=== PATIENT | female | born 1935 | race Caucasian/White ===

== ENCOUNTER 2017-06-24 11:57 | Inpatient (IN) | payer OTHER ==
[2017-06-24] MEDS ORDERED: ALBUTEROL 2.5 MG/3 ML NEB SOL ONE (12:19)
[2017-06-24] MEDS ORDERED: IPRATROPIUM BROM 0.5MG/2.5ML ONE ×2 (12:19→12:25)
[2017-06-24 12:37] LABS: Absolute Lymphocytes (CBC) 1.1 K/uL (0.7-4.9); Absolute Neutrophil 9.5 K/uL (1.8-8.0); Basophils % 0.3 % (0-1.3); Eosinophils % 0.4 % (0-4.4); Hematocrit 41.6 % (36.0-45.0); Lymphocytes % 9.2 % (15.3-44.8); MCH 31.8 pg (27.0-35.0); MCV 96.5 fL (80-100); MPV 9.8 fL (7.6-11.3); Monocytes % 8.4 % (3.3-12.3); RBC Red Blood Cell Count 4.31 M/uL (3.86-4.86)
[2017-06-24 12:46] LABS: Potassium 4.7 mEq/L (3.6-5.0)
[2017-06-24 12:51] LABS: Protime INR 1.14
[2017-06-24 12:58] LABS: Arterial Blood Carboxyhemoglob 1.3 % (0-1.5); Blood Gas Oxyhemoglobin 97.4 % (94-97); Blood O2 Saturation 99.6 % (92-98.5)
--- NOTE | 2017-06-24 13:16 | RAD REPORT ---
EXAM DESCRIPTION: RAD - Chest Single View - 06/24/2017 12:57 pm CLINICAL HISTORY: Shortness of breath, decreased O2 saturation COMPARISON: December 2015 TECHNIQUE: AP portable chest image was obtained 1233 hours . FINDINGS: Lung volumes are low. Interstitial markings are prominent, accentuated by shallow inspirat ion, body habitus and underpenetrated technique. Cardiomegaly and vascular engorgement are present al so accentuated by exam limitations. Bilateral pleural effusions are present. No pneumothorax. Sternot prasad wires are in place. Degenerative bony changes are present more prominent at the right shoulder. N o gross acute bone process seen. No acute aortic findings suspected. IMPRESSION: CHF/volume overload pattern is present accentuated by shallow inspiration and under pene trated film technique.
--- NOTE | 2017-06-24 13:27 | EKG ---
Test Date: 2017-06-24 Test Time: 12:19:42 Pharmacy Resource Tech: NAMITA MEASUREMENT RESULTS: Intervals: Rate: 132 [place]: QRSD: 78 QT: 306 QTc: 453 [place]: P: IN: QRS: 6 T: 155 INTERPRETIVE STATEMENTS: Atrial fibrillation with rapid ventricular response ST & T wave abnormality, consider lateral ischemia or digitalis effect Abnormal ECG No previous ECG available for comparison Electronically Signed On 06-24-17 13:27:05 CDT by Smith Fontanez
[2017-06-24] MEDS ORDERED: FUROSEMIDE 40 MG/4 ML VIAL ONE (13:49)
[2017-06-24] MEDS ORDERED: METOPROLOL TARTRATE 5 MG/5 ML INJ IV ONE ×2 (14:27→16:20)
--- NOTE | 2017-06-24 14:34 | ER ---
Nurse's Notes [facility] Name: Blaire Dunlap Age: 82 yrs Sex: Female : 1935 Arrival Date: 06/24/2017 Time: 12:01 Bed 8 Private MD: Diagnosis: Systolic (congestive) heart failure;Hypoxemia Presentation: 06/24 12:08 Presenting complaint: Child states: pt was due for EGD and dilation of esophagus this iw morning, was told to come to ER due to low O2 level, pt 85% on RA. Transition of care: patient was received from another setting of care (long-term care [facility]. Onset of symptoms was June 24, 2017. Initial Sepsis Screen: Does the patient meet any 2 criteria? RR > 20 per min. HR > 90 bpm. Care prior to arrival: None. 12:08 Method Of Arrival: Wheelchair iw 12:08 Acuity: BRUNA 2 iw 12:15 Initial Sepsis Screen: Does the patient have a suspected source of infection? No. hb Patient's initial sepsis screen is negative. Historical: - Allergies: 12:12 NKA; iw - Home Meds: 12:24 alendronate 70 mg Oral tab 1 tab once wkly [Active]; Aricept 23 mg oral tab once daily iw [Active]; Augmentin 500-125 mg Oral tab 1 tab every 12 hours [Active]; Breo Ellipta 100-25 mcg/dose inhalation dsdv 1 puff once daily [Active]; bumetanide 0.5 mg oral tab once daily [Active]; calcium carbonate 600 mg (1,500 mg) Oral tab daily [Active]; Vitamin D Oral 400 unit daily [Active]; citalopram 40 mg oral tab once daily [Active]; Claritin 10 mg Oral tab 1 tab once daily [Active]; dicyclomine 20 mg Oral tab 3 times per day [Active]; ferrous sulfate 325 mg (65 mg iron) Oral tab twice a day [Active]; Flonase 50 mcg/actuation Nasal spsn 2 sprays 2 times per day [Active]; hydrocodone-acetaminophen 10-325 mg Oral tab 1 tab every 6 hours [Active]; hyoscyamine sulfate 0.125 mg SL subl twice a day [Active]; ipratropium-albuterol 0.5 mg-3 mg(2.5 mg base)/3 mL Inhl nebu 3 mL 4 times per day [Active]; levothyroxine 100 mcg tab 1 tab once daily [Active]; lorazepam 0.5 mg Oral tab nightly [Active]; melatonin 3 mg Oral tab twice a day [Active]; metoprolol succinate 50 mg Oral Tb24 BID [Active]; Miralax 17 gram/dose Oral powd once daily for constipation [Active]; artificial tears(hypromellose) 0.4 % Opht drop three times a day [Active]; Neurontin 600 mg Oral tab 3 times per day [Active]; ondansetron HCl 4 mg Oral tab every 6 hours [Active]; pantoprazole 40 mg oral TbEC 1 tab once daily [Active]; potassium chloride 10 mEq Oral cpER 1 cap once daily [Active]; primidone 50 mg Oral tab twice a day [Active]; Senokot 8.6 mg Oral tab 2 tabs once daily [Active]; Simethicone Oral every 6 hours [Active]; tamsulosin 0.4 mg oral cp24 1 cap once daily [Active]; Ultram 50 mg Oral tab 1 tab every 6 hours [Active]; - PMHx: 12:12 Arthritis; Atrial Fib; CAD; C-diff; Chronic pain; Chronic Pancreatitis; Dementia; iw Diabetes; Hyperlipidemia; Hypothyroidism; 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 - Social history:: Smoking status: Patient/guardian denies using tobacco. Screenin:49 Abuse screen: Denies threats or abuse. Nutritional screening: No deficits noted. tw2 Tuberculosis screening: No symptoms or risk factors identified. Fall Risk None identified. Assessment: 12:10 General: Appears distressed, Behavior is cooperative, anxious. Pain: Complains of pain hb in chest Pain does not radiate. Pain currently is 8 out of 10 on a pain scale. Pain began suddenly. Neuro: Level of Consciousness is awake, alert, obeys commands, Oriented to person, place, time, situation. Cardiovascular: Heart tones S1 S2 present Capillary refill < 3 seconds Patient's skin is warm and dry. Respiratory: Airway is patent Trachea midline Respiratory effort is labored, Respiratory pattern is tachypnea Breath sounds with crackles bilaterally. GI: No signs and/or symptoms were reported involving the gastrointestinal system. : No signs and/or symptoms were reported regarding the genitourinary system. EENT: No signs and/or symptoms were reported regarding the EENT system. Derm: No signs and/or symptoms reported regarding the dermatologic system. Skin is pink, warm \T\ dry. Musculoskeletal: No signs and/or symptoms reported regarding the musculoskeletal system. 12:12 Reassessment: RT paged to bedside to set up BiPAP. iw 12:49 Reassessment: Patient appears in no apparent distress at this time. Patient and/or tw2 family updated on plan of care and expected duration. Pain level reassessed. Patient is alert, oriented x 3, equal unlabored respirations, skin warm/dry/pink. 13:46 Reassessment: HR 125-150, irregular. Dr. Zambrano notified, repeat EKG ordered. clinical dietetic technician paged. 14:45 Reassessment: Patient appears in no apparent distress at this time. No changes from hb previously documented assessment. Patient and/or family updated on plan of care and expected duration. Pain level reassessed. Patient is alert, oriented x 3, equal unlabored respirations, skin warm/dry/pink. HR 120-140. Dr. Zambrano aware. 15:42 Reassessment: Patient appears in no apparent distress at this time. No changes from hb previously documented assessment. Patient and/or family updated on plan of care and expected duration. Pain level reassessed. Patient is alert, oriented x 3, equal unlabored respirations, skin warm/dry/pink. Admission ordered, awaiting room assignment at this time. HR 120-140, Dr. Zambrano and Dr. Toscano aware. 16:45 Reassessment: Patient appears in no apparent distress at this time. No changes from hb previously documented assessment. Patient and/or family updated on plan of care and expected duration. Pain level reassessed. Patient is alert, oriented x 3, equal unlabored respirations, skin warm/dry/pink. Vital Signs: 12:12 BP 138 / 94; Pulse 121; Resp 26 S; Pulse Ox 85% on R/A; iw 12:49 BP 140 / 93; Pulse 146; Resp 28; Pulse Ox 99% on Nebulizer Mask; tw2 13:11 BP 134 / 92; Pulse 140; Resp 28; Pulse Ox 96% on 30% BiPAP; Pain 0/10; tw2 14:26 BP 133 / 82; Pulse 127; Resp 24; Pulse Ox 96% on 30% BiPAP; hb 15:43 BP 138 / 95; Pulse 131; Resp 22; Pulse Ox 100% on 30% BiPAP; hb 16:45 BP 134 / 99; Pulse 116; Resp 24; Pulse Ox 97% on 30% BiPAP; hb 13:11 BIPBP 12/6, R12, 30% FiO2 tw2 ED Course: 12:01 Patient arrived in ED. rg4 12:02 Placed in gown. bellstaff on. Pulse ox on. NIBP on. tw2 12:03 John Zambrano MD is Attending Physician. gs 12:10 Triage completed. iw 12:12 Arm band placed on. iw 12:26 Charley Oliver, RN is Primary Nurse. hb 12:32 EKG done, by clinical dietetic technician. reviewed by John Zambrano MD. tc 12:57 XRAY Chest (1 view) In Process Unspecified. EDMS 13:45 BIPAP Sent. hb 14:33 Annabel Toscano MD is Hospitalizing Provider. gs 17:20 No provider procedures requiring assistance completed. Patient admitted, IV remains in hb place. Oxygen administration via nasal cannula. Administered Medications: 12:26 Drug: Albuterol - atroVENT (3:1) (2.5 mg - 0.5 mg) 3 ml Route: Nebulizer; hb 14:19 Follow up: Response: No adverse reaction tw2 12:27 Drug: AtroVENT Aerosol 0.5 mg Route: Inhalation; hb 13:50 Drug: Lasix 40 mg Route: IVP; Site: right antecubital; tw2 15:47 Follow up: Response: No adverse reaction tw2 14:27 Drug: Lopressor 5 mg Route: IVP; Site: right antecubital; tw2 15:47 Follow up: Response: No adverse reaction tw2 Outcome: 14:34 Decision to Hospitalize by Provider. gs 17:20 Admitted to Tele accompanied by tech, via stretcher, with oxygen, with chart. hb 17:20 Condition: stable 17:20 Instructed on the need for admit, Demonstrated understanding of instructions. 17:21 Patient left the ED. tw2 Signatures: Dispatcher [employer] EDNetta Garcia, RN RN iw Rafael, Sailaja, division merchandise manager EKG Ttc Charley Oliver RN RN Candace Sultana RN RN [facility] Itzel Denson [facility] John Zambrano MD MD
--- NOTE | 2017-06-24 14:35 | EDPHYS ---
Physician Documentation [facility] Name: Blaire Dunlap Age: 82 yrs Sex: Female : 1935 Arrival Date: 06/24/2017 Time: 12:01 Bed 8 Private MD: ED Physician John Zambrano HPI: 06/24 15:33 This 82 yrs old Female presents to ER via Wheelchair with complaints of Chest gs Pain, LOW O2. 15:33 The patient has shortness of breath at rest. Onset: The symptoms/episode began/occurred gs today. Duration: The symptoms are continuous. The patient's shortness of breath has no apparent modifying factors. Associated signs and symptoms: Pertinent positives: dizziness, palpitations. Severity of symptoms: At their worst the symptoms were moderate in the emergency department the symptoms are unchanged. The patient has experienced similar episodes in the past, a few times. Historical: - Allergies: 12:12 NKA; iw - Home Meds: 12:24 alendronate 70 mg Oral tab 1 tab once wkly [Active]; Aricept 23 mg oral tab once daily iw [Active]; Augmentin 500-125 mg Oral tab 1 tab every 12 hours [Active]; Breo Ellipta 100-25 mcg/dose inhalation dsdv 1 puff once daily [Active]; bumetanide 0.5 mg oral tab once daily [Active]; calcium carbonate 600 mg (1,500 mg) Oral tab daily [Active]; Vitamin D Oral 400 unit daily [Active]; citalopram 40 mg oral tab once daily [Active]; Claritin 10 mg Oral tab 1 tab once daily [Active]; dicyclomine 20 mg Oral tab 3 times per day [Active]; ferrous sulfate 325 mg (65 mg iron) Oral tab twice a day [Active]; Flonase 50 mcg/actuation Nasal spsn 2 sprays 2 times per day [Active]; hydrocodone-acetaminophen 10-325 mg Oral tab 1 tab every 6 hours [Active]; hyoscyamine sulfate 0.125 mg SL subl twice a day [Active]; ipratropium-albuterol 0.5 mg-3 mg(2.5 mg base)/3 mL Inhl nebu 3 mL 4 times per day [Active]; levothyroxine 100 mcg tab 1 tab once daily [Active]; lorazepam 0.5 mg Oral tab nightly [Active]; melatonin 3 mg Oral tab twice a day [Active]; metoprolol succinate 50 mg Oral Tb24 BID [Active]; Miralax 17 gram/dose Oral powd once daily for constipation [Active]; artificial tears(hypromellose) 0.4 % Opht drop three times a day [Active]; Neurontin 600 mg Oral tab 3 times per day [Active]; ondansetron HCl 4 mg Oral tab every 6 hours [Active]; pantoprazole 40 mg oral TbEC 1 tab once daily [Active]; potassium chloride 10 mEq Oral cpER 1 cap once daily [Active]; primidone 50 mg Oral tab twice a day [Active]; Senokot 8.6 mg Oral tab 2 tabs once daily [Active]; Simethicone Oral every 6 hours [Active]; tamsulosin 0.4 mg oral cp24 1 cap once daily [Active]; Ultram 50 mg Oral tab 1 tab every 6 hours [Active]; - PMHx: 12:12 Arthritis; Atrial Fib; CAD; C-diff; Chronic pain; Chronic Pancreatitis; Dementia; iw Diabetes; Hyperlipidemia; Hypothyroidism; 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 - Social history:: Smoking status: Patient/guardian denies using tobacco. ROS: 15:33 All other systems are negative. gs Exam: 15:33 Head/Face: Normocephalic, atraumatic. Eyes: Pupils equal round and reactive to light, gs extra-ocular motions intact. Lids and lashes normal. Conjunctiva and sclera are non-icteric and not injected. Cornea within normal limits. Periorbital areas with no swelling, redness, or edema. ENT: Nares patent. No nasal discharge, no septal abnormalities noted. Tympanic membranes are normal and external auditory canals are clear. Oropharynx with no redness, swelling, or masses, exudates, or evidence of obstruction, uvula midline. Mucous membranes moist. Neck: Trachea midline, no thyromegaly or masses palpated, and no cervical lymphadenopathy. Supple, full range of motion without nuchal rigidity, or vertebral point tenderness. No Meningismus. Chest/axilla: Normal chest wall appearance and motion. Nontender with no deformity. No lesions are appreciated. 15:33 Abdomen/GI: Soft, non-tender, with normal bowel sounds. No distension or tympany. No guarding or rebound. No evidence of tenderness throughout. Back: No spinal tenderness. No costovertebral tenderness. Full range of motion. Skin: Warm, dry with normal turgor. Normal color with no rashes, no lesions, and no evidence of cellulitis. MS/ Extremity: Pulses equal, no cyanosis. Neurovascular intact. Full, normal range of motion. Neuro: Awake and alert, GCS 15, oriented to person, place, time, and situation. Cranial nerves II-XII grossly intact. Motor strength 5/5 in all extremities. Sensory grossly intact. Cerebellar exam normal. Normal gait. 15:33 Constitutional: The patient appears alert, awake, in obvious distress, severely distressed. 15:33 Cardiovascular: Rate: tachycardic, Rhythm: irregularly irregular, Pulses: no pulse deficits are appreciated. 15:33 ECG was reviewed by the Attending Physician. 15:33 Respiratory: severe repiratory distress is noted, Respirations: labored breathing, tachypnea, Breath sounds: decreased breath sounds, that are severe, are heard in the left upper lobe and left lower lobe. Vital Signs: 12:12 BP 138 / 94; Pulse 121; Resp 26 S; Pulse Ox 85% on R/A; iw 12:49 BP 140 / 93; Pulse 146; Resp 28; Pulse Ox 99% on Nebulizer Mask; tw2 13:11 BP 134 / 92; Pulse 140; Resp 28; Pulse Ox 96% on 30% BiPAP; Pain 0/10; tw2 14:26 BP 133 / 82; Pulse 127; Resp 24; Pulse Ox 96% on 30% BiPAP; hb 15:43 BP 138 / 95; Pulse 131; Resp 22; Pulse Ox 100% on 30% BiPAP; hb 16:45 BP 134 / 99; Pulse 116; Resp 24; Pulse Ox 97% on 30% BiPAP; hb 13:11 BIPBP 12/6, R12, 30% FiO2 tw2 MDM: 12:09 Patient medically screened. 15:33 Differential diagnosis: CHF exacerbation, Chronic Obstructive Pulmonary Disease gs Myocardial Infarction pneumonia. Data reviewed: vital signs, nurses notes, old medical records, and as a result, I will admit patient. 06/24 12:12 Order name: BNP; Complete Time: 13:45 gs 06/24 12:12 Order name: Basic Metabolic Panel; Complete Time: 13:45 gs 06/24 12:12 Order name: CBC with Diff; Complete Time: 13:45 gs 06/24 12:12 Order name: Magnesium; Complete Time: 13:45 gs 06/24 12:12 Order name: PT-INR; Complete Time: 13:45 gs 06/24 12:12 Order name: Troponin (emerg Dept Use Only); Complete Time: 13:45 gs 06/24 12:12 Order name: XRAY Chest (1 view); Complete Time: 13:45 gs 06/24 12:12 Order name: EKG; Complete Time: 12:13 gs 06/24 12:12 Order name: BIPAP 06/24 12:17 Order name: ABG; Complete Time: 14:00 06/24 12:12 Order name: Cardiac monitoring; Complete Time: 12:27 06/24 12:12 Order name: EKG - Nurse/Tech; Complete Time: 12:27 06/24 12:12 Order name: IV Saline Lock; Complete Time: 12:27 gs 06/24 12:12 Order name: Labs collected and sent; Complete Time: 12:27 06/24 12:12 Order name: O2 Per Protocol; Complete Time: 12:27 06/24 12:12 Order name: O2 Sat Monitoring; Complete Time: 12:27 06/24 13:45 Order name: EKG; Complete Time: 13:45 06/24 13:45 Order name: EKG - Nurse/Tech; Complete Time: 14:19 gs EC:33 Rate is 135 beats/min. Rhythm is irregularly irregular. QRS interval is normal. QT gs interval is normal. Clinical impression: Abnormal EKG without significant change and Atrial Fibrillation. Interpreted by me. Administered Medications: 12:26 Drug: Albuterol - atroVENT (3:1) (2.5 mg - 0.5 mg) 3 ml Route: Nebulizer; hb 14:19 Follow up: Response: No adverse reaction tw2 12:27 Drug: AtroVENT Aerosol 0.5 mg Route: Inhalation; hb 13:50 Drug: Lasix 40 mg Route: IVP; Site: right antecubital; tw2 15:47 Follow up: Response: No adverse reaction tw2 14:27 Drug: Lopressor 5 mg Route: IVP; Site: right antecubital; tw2 15:47 Follow up: Response: No adverse reaction tw2 Disposition: 15:33 Critical Care:. gs Disposition: 06/24/17 14:34 Hospitalization ordered by Annabel Toscano for Inpatient Admission. Preliminary diagnosis are Systolic (congestive) heart failure, Hypoxemia. - Bed requested for Intensive Care Unit. - Status is Inpatient Admission. tw2 - Condition is Stable. - Problem is an acute exacerbation. - Symptoms have improved. UTI on Admission? No Critical care time excluding procedures: 15:33 Critical care time: Bedside Care: 10 minutes, Consultation: 10 minutes, Family gs Intervention: 10 minutes. Total time: 30 minutes Signatures: Dispatcher [employer] EDMS Batsheva Milner Irene, RN RN Charley Oliver RN RN Candace Sultana RN RN 2 ZambranoJohn sullivan MD MD Corrections: (The following items were deleted from the chart) 16:44 14:34 Hospitalization Ordered by Annabel Toscano MD for Inpatient Admission. Preliminary bd diagnosis is Systolic (congestive) heart failure; Hypoxemia. Bed requested for Intensive Care Unit. Status is Inpatient Admission. Condition is Stable. Problem is an acute exacerbation. Symptoms have improved. UTI on Admission? No. gs 17:21 16:44 06/24/2017 14:34 Hospitalization Ordered by Annabel Toscano MD for Inpatient tw2 Admission. Preliminary diagnosis is Systolic (congestive) heart failure; Hypoxemia. Bed requested for Intensive Care Unit. Status is Inpatient Admission. Condition is Stable. Problem is an acute exacerbation. Symptoms have improved. UTI on Admission? No. bd
[2017-06-24] MEDS ORDERED: ONDANSETRON 4 MG/2 ML VIAL IV PRN (15:17)
[2017-06-24] MEDS ORDERED: ACETAMINOPHEN 500 MG TAB PO PRN (15:17)
[2017-06-24] MEDS ORDERED: SODIUM CHLORIDE 0.9% 10ML INJ IV PRN (15:21)
[2017-06-24 17:25] VITALS: BMI 26.5
--- NOTE | 2017-06-24 17:57 | EKG ---
Test Date: 2017-06-24 Test Time: 13:53:21 Analysis Internship: MEGHNA MEASUREMENT RESULTS: Intervals: Rate: 135 [place]: QRSD: 76 QT: 320 QTc: 480 [place]: P: [place]: QRS: 1 T: 181 INTERPRETIVE STATEMENTS: Atrial fibrillation with rapid ventricular response ST & T wave abnormality, consider lateral ischemia or digitalis effect Abnormal ECG Compared to ECG 06/24/2017 12:19:42 No significant changes Electronically Signed On 06-24-17 17:57:00 CDT by Smith Fontanez
--- NOTE | 2017-06-24 18:31 | P.HP ---
Certification for Inpatient Patient admitted to: Inpatient With expected LOS: >2 Midnights Patient will require the following post-hospital care: None Practitioner: I am a practitioner with admitting privileges, knowledge of patient current condition, hospital course, and medical plan of care. Services: Services provided to patient in accordance with Admission requirements found in Title 42 Section 412.3 of the Code of Federal Regulations Patient History Date of Service: 06/24/17 Primary Care Provider: None Reason for admission: respiratory Failure History of Present Illness: This is a 82-year-old female with significant past medical history of COPD, CHF , atrial fibrillation, dementia, hypertension, hyperlipidemia, diabetes, CAD, who presented to the ED complaining of respiratory distress for about 2-3 days from the long-term. Patient was at the EGD today to get her esophageal dilation done for herself stricture however patient was having some respiratory distress and thus was sent to the ER for further care. Patient's family at bedside states that patient has been having some epigastric pain which was most likely secondary to her esophageal stricture and thus she was scheduled for dilation today however for past 2-3 days patient has not been able to eat or drink anything and has been more somnolent and lethargic at the long-term. In the ER patient was found to have elevated CO2 on ABGs along with hyponatremia and respiratory distress was started on BiPAP and was referred over for admission for further care. Allergies No Known Allergies Allergy (Unverified 12/12/11 13:27) - Past Medical/Surgical History Diabetic: No -: Atrial Fibrillation -: CAD -: Anuerysm Repair - Family History Dad Notes: no significant hx as claimed Mom Notes: no significant hx as claimed - Social History Smoking Status: Former smoker Alcohol use: No CD- Drugs: No Caffeine use: No Place of Residence: Detention Review of Systems General: As per HPI Physical Examination - Vital Signs Blood Pressure: 126/74 Pulse: 134 Respirations: 23 Pulse Ox (%): 96 - Physical Exam General: Alert, Oriented x3, Moderate distress HEENT: Atraumatic Neck: Supple Respiratory: Normal air movement, Crackles/rales, Rhonchi/gurgles Cardiovascular: Normal S1 S2, Abnormal pulses, Irregular heart rate/rhythm Gastrointestinal: Normal bowel sounds, Soft and benign, Non-distended, No tenderness Musculoskeletal: No tenderness Integumentary: No rashes Neurological: Normal speech, Normal strength at 5/5 x4 extr, Normal tone, Sensation intact Lymphatics: No axilla or inguinal lymphadenopathy - Studies Laboratory Data (last 24 hrs) 06/24/17 12:20: PT 13.5 H, INR 1.14 06/24/17 12:20: WBC 11.6 H D, Hgb 13.7, Hct 41.6, Plt Count 244 D 06/24/17 12:20: Sodium 128 L, Potassium 4.7, BUN 26 H, Creatinine 1.14 H, Glucose 109, Magnesium 2.0 06/24/17 12:20: B-Natriuretic Peptide 701 H Assessment and Plan - Problems (Diagnosis) (1) Respiratory failure Current Visit: Yes Status: Acute Plan: Acute Hypercapnic Respiratory Failure. Most Likely 2/2 to COPD vs CHF exacerbation -BIPAP for now, Duonebs and Steroids -Pulmonology consulted. -Procal pending. If elevated will start antibiotics -ABG in AM And xray in the AM as well -Wean of BIPAP as tolerated. Qualifiers: Chronicity: acute on chronic Respiratory failure complication: hypercapnia Qualified Code(s): J96.22 - Acute and chronic respiratory failure with hypercapnia (2) CHF (congestive heart failure) Current Visit: Yes Status: Acute Plan: H/o CHF. Unknow ECHO -Will get ECHO at this time -BNP >700 -Lasix BID for now Qualifiers: Heart failure type: unspecified Heart failure chronicity: acute on chronic Qualified Code(s): I50.9 - Heart failure, unspecified (3) COPD (chronic obstructive pulmonary disease) Current Visit: Yes Status: Acute Plan: COPD exacerbation. -BIPAP, Steroids and Duonebs Qualifiers: COPD type: COPD with acute exacerbation Qualified Code(s): J44.1 - Chronic obstructive pulmonary disease with (acute) exacerbation (4) Atrial fibrillation with RVR Current Visit: Yes Status: Acute Plan: Most likely 2.2 to Albuterol treatment and pt did not get her medication this AM -Will Restart BB -Echo pending -Anticoagulation with Eliquis (5) Dementia Current Visit: Yes Status: Chronic Qualifiers: Dementia type: Alzheimer's disease Alzheimer's disease onset: late-onset Dementia behavioral disturbance: without behavioral disturbance Qualified Code (s): G30.1 - Alzheimer's disease with late onset; F02.80 - Dementia in other diseases classified elsewhere without behavioral disturbance (6) GERD (gastroesophageal reflux disease) Current Visit: Yes Status: Chronic Qualifiers: Esophagitis presence: without esophagitis Qualified Code(s): K21.9 - Gastro -esophageal reflux disease without esophagitis (7) Hyperlipidemia Current Visit: Yes Status: Chronic Qualifiers: Hyperlipidemia type: mixed hyperlipidemia Qualified Code(s): E78.2 - Mixed hyperlipidemia (8) Diabetes Current Visit: Yes Status: Chronic Qualifiers: Diabetes mellitus type: type 2 Diabetes mellitus residential insulin use: with residential use Diabetes mellitus complication status: without complication Qualified Code(s): E11.9 - Type 2 diabetes mellitus without complications; Z79.4 - shelter (current) use of insulin (9) Hypothyroidism Current Visit: Yes Status: Chronic Qualifiers: Hypothyroidism type: acquired Qualified Code(s): E03.9 - Hypothyroidism, unspecified (10) Hyponatremia Current Visit: Yes Status: Acute Plan: Will replace. Most likely 2.2 to Poor PO intake (11) Esophageal stricture Current Visit: Yes Status: Acute Plan: GI consulted for dilation here in the hospital. Discharge Plan: Detention Plan to discharge in: 72 Hours - Advance Directives Does patient have a Living Will: No Does patient have a Durable POA for Healthcare: No - Code Status/Comfort Care Code Status Assessed: Yes Code Status: Full Code Critical Care: No
[2017-06-24] MEDS: IPRATROPIUM BROM 0.5MG/2.5ML NEB SCH (19:21)
[2017-06-24] MEDS: LEVALBUTEROL 0.63 MG/3 ML NEB NEB SCH (19:21)
[2017-06-24] MEDS ORDERED: SIMETHICONE 80 MG TAB PO PRN (19:23)
[2017-06-24] MEDS ORDERED: POLYETHYL GLY 3350 17 GM/DOSE PO PRN (19:23)
[2017-06-24] MEDS ORDERED: HOME MED 1 EA UNK (Ipratropium/Albuterol Sulfate [Iprat-Albut 0.5-3(2.5) Mg/3 Ml] 3 ML) IH PRN (19:23)
[2017-06-24] MEDS ORDERED: MELATONIN PO SCH (21:00)
[2017-06-24] MEDS ORDERED: GABAPENTIN 400 MG CAP PO SCH (21:00)
[2017-06-24] MEDS ORDERED: PYRIDOXINE HCL PO SCH (21:00)
[2017-06-24] MEDS: METOPROLOL XL 50 MG TAB PO SCH (22:00)
[2017-06-24] MEDS: TAMSULOSIN 0.4 MG SR CAP PO SCH (23:22)
[2017-06-24] MEDS: PRIMIDONE 50 MG TAB PO SCH (23:23)
[2017-06-24] MEDS ORDERED: GABAPENTIN 300 MG CAP ONE (23:47)
[2017-06-24] MEDS: GABAPENTIN 300 MG CAP PO SCH (23:59)
[2017-06-25] MEDS: IPRATROPIUM BROM 0.5MG/2.5ML NEB SCH ×4 (01:43→20:14)
[2017-06-25] MEDS: LEVALBUTEROL 0.63 MG/3 ML NEB NEB SCH ×4 (01:44→20:14)
[2017-06-25 05:09] LABS: Blood O2 Saturation 93.4 % (92-98.5)
[2017-06-25 05:10] LABS: Arterial Blood Carboxyhemoglob 2.2 % (0-1.5); Blood Gas Oxyhemoglobin 90.8 % (94-97)
[2017-06-25 05:13] LABS: Absolute Lymphocytes (CBC) 0.9 K/uL (0.7-4.9); Absolute Monocytes 0.8 K/uL (0.1-1.3); Absolute Neutrophil 5.9 K/uL (1.8-8.0); Basophils % 0.7 % (0-1.3); Eosinophils % 1.4 % (0-4.4); Hematocrit 35.9 % (36.0-45.0); Lymphocytes % 11.6 % (15.3-44.8); MCH 32.7 pg (27.0-35.0); MCV 95.1 fL (80-100); MPV 8.8 fL (7.6-11.3); Monocytes % 9.9 % (3.3-12.3); RBC Red Blood Cell Count 3.78 M/uL (3.86-4.86)
[2017-06-25 05:27] LABS: Albumin 3.4 g/dL (3.2-5.5); Bilirubin Total 1.3 mg/dL (0.3-1.2); Potassium 4.1 mEq/L (3.6-5.0); Protein, Total 6.5 g/dL (6.0-8.3)
[2017-06-25] MEDS ORDERED: AMIODARONE HCL 450 MG in D5W 241 ML IV SCH ×2 (07:00→22:00)
[2017-06-25] MEDS ORDERED: ALBUTEROL 2.5 MG/3 ML NEB SOL IH PRN (07:50)
[2017-06-25] MEDS: ARFORMOTEROL TARTRATE 15 MCG/2 ML VIAL.NEB NEB SCH ×2 (08:16→20:14)
--- NOTE | 2017-06-25 08:16 | P.CNS ---
Date of Consult: 06/25/17 Primary Care Provider: None Chief Complaint: respiratory Failure History of Present Illness: Patient is 82 years of age was scheduled for EGD with dilatation of urged was found to be hypoxic was admitted here from the emergency room was placed on BiPAP currently she is doing well back to her baseline the former smoker quit a year ago lives in [facility] [place] [facility] back to her baseline denies any cough congestion fever or chills he also has AFib patient is not on any long-acting bronchodilator at home takes nebulizers 4 times a day Allergies No Known Allergies Allergy (Unverified 12/12/11 13:27) Home Medications: Acetaminophen [Tylenol] 322 tab PO DAILY PRN 06/24/17 Alendronate Sodium 70 mg PO SEECOM 06/24/17 Dextran 70/Hypromellose [Natural Balance Tears Eye Drop] 15 ml OP Q8H PRN Donepezil HCl [Aricept] 23 mg PO DAILY 06/24/17 Gabapentin [Neurontin] 600 mg PO TID 06/24/17 Hydrocodone Bit/Acetaminophen [Hydrocodon-Acetaminophn 10-325] 1 each PO Q6H PRN 06/24/17 Hyoscyamine Sulfate [Levsin] 0.125 mg PO Q6HP PRN 06/24/17 Ipratropium/Albuterol Sulfate [Iprat-Albut 0.5-3(2.5) mg/3 ml] 3 ml IH Q6HP PRN 06/24/17 Levothyroxine Sodium [Unithroid] 100 mcg PO DAILY 06/24/17 Lorazepam [Ativan] 0.5 mg PO BEDTIME PRN 06/24/17 Melatonin/Pyridoxine HCl (B6) [Melatonin 3 mg Tablet] 2 each PO BEDTIME Menthol [Biofreeze] 118 ml TP Q12H PRN 06/24/17 Metoprolol Succinate 50 mg PO BID 06/24/17 Ondansetron [Zofran] 4 mg PO Q6H PRN 06/24/17 Pantoprazole Sodium [Protonix] 40 mg PO DAILY 06/24/17 Polyethylene Glycol 3350 [Miralax] 17 gm PO DAILY PRN 06/24/17 Potassium Chloride [Klor-Con 10] 10 meq PO DAILY 06/24/17 Primidone [Mysoline] 50 mg PO BID 06/24/17 Sennosides [Natural Vegetable Laxative] 8.6 mg PO DAILY PRN 06/24/17 Simethicone [Mylicon Tab] 2 tab PO Q6HP PRN 06/24/17 Tamsulosin [Flomax] 0.4 mg PO BEDTIME 06/24/17 Tramadol HCl [Ultram] 50 mg PO Q6HP PRN 06/24/17 Tramadol HCl [Ultram] 100 mg PO Q6HP PRN 06/24/17 Vitamin B Complex 100 No.2 [B-100 Complex] 1 tab PO DAILY 06/24/17 - Past Medical/Surgical History Diabetic: No -: Atrial Fibrillation -: CAD -: Anuerysm Repair - Family History Dad Notes: no significant hx as claimed Mom Notes: no significant hx as claimed - Social History Smoking Status: Never smoker Alcohol use: No CD- Drugs: No Caffeine use: No Place of Residence: [facility] Review of Systems 10-point ROS is otherwise unremarkable General: Weakness Respiratory: Shortness of Breath Physical Examination Temp Pulse Resp BP Pulse Ox 98.2 F 138 H 30 H 113/81 95 06/25/17 04:00 06/25/17 07:00 06/25/17 07:00 06/25/17 07:00 06/25/17 07:00 General: Alert, Oriented x3 Neck: Supple Respiratory: Expiratory wheezes Cardiovascular: No edema, Irregular heart rate/rhythm Gastrointestinal: Normal bowel sounds, Soft and benign Laboratory Data (last 24 hrs) 06/24/17 12:20: PT 13.5 H, INR 1.14 06/24/17 12:20: WBC 11.6 H D, Hgb 13.7, Hct 41.6, Plt Count 244 D 06/24/17 12:20: Sodium 128 L, Potassium 4.7, BUN 26 H, Creatinine 1.14 H, Glucose 109, Magnesium 2.0 06/24/17 12:20: B-Natriuretic Peptide 701 H - Problems (1) Respiratory failure Current Visit: Yes Status: Acute Plan: Patient is 82 years of age with a history of COPD quit smoking a year ago admitted with hypoxemia she has hypoxic hypercapnic respiratory failure plan to titrate sat to 90% she will benefit from long-acting bronchodilators either above on our upper for missed increase prednisone to 20 mg twice a day chemistries all reviewed chest x-ray some haziness in the lower zones doubt infection ovoid diuretics Qualifiers: Chronicity: acute on chronic Respiratory failure complication: hypercapnia Qualified Code(s): J96.22 - Acute and chronic respiratory failure with hypercapnia
[2017-06-25] MEDS ORDERED: PANTOPRAZOLE 40 MG INJ IVP SCH (09:00)
[2017-06-25] MEDS ORDERED: FUROSEMIDE 40 MG/4 ML VIAL IV SCH (09:00)
[2017-06-25] MEDS ORDERED: predniSONE 10 MG TAB PO SCH (09:00)
[2017-06-25] MEDS: PRIMIDONE 50 MG TAB PO SCH ×2 (09:04→20:07)
[2017-06-25] MEDS: METOPROLOL XL 50 MG TAB PO SCH ×2 (09:05→20:01)
[2017-06-25] MEDS: PANTOPRAZOLE 40MG TABLET PO SCH (09:05)
[2017-06-25] MEDS: GABAPENTIN 300 MG CAP PO SCH ×3 (09:05→20:03)
[2017-06-25] MEDS: LEVOTHYROXINE SOD 0.1 MG TAB PO SCH (09:05)
[2017-06-25] MEDS: predniSONE 20 MG TAB PO SCH ×2 (09:06→20:03)
--- NOTE | 2017-06-25 09:09 | RAD REPORT ---
EXAM DESCRIPTION: RAD - Chest Single View - 06/25/2017 6:19 am CLINICAL HISTORY: Shortness of breath COMPARISON: 06/24/2017 FINDINGS: Portable technique limits examination quality. Bilateral pulmonary opacities are present, mildly worsened since comparative study, compatible worsen ing pulmonary edema in or volume overload. The heart is moderately enlarged in size. No displaced fra ctures.Sternotomy wires as present. IMPRESSION: Mild worsening in CHF/ volume overload pattern since comparative study.
[2017-06-25] MEDS ORDERED: METOPROLOL XL 50 MG TAB PO ONE (11:49)
[2017-06-25] MEDS ORDERED: AMIODARONE HCL 150 MG in D5W 100 ML IV STA (12:25)
[2017-06-25] MEDS ORDERED: AMIODARONE HCL 450 MG in D5W 241 ML IV ONE ×2 (12:45→21:00)
[2017-06-25] MEDS ORDERED: AMIODARONE HCL 900 MG in Dextrose 5%-Water 482 ML IV SCH (13:00)
--- NOTE | 2017-06-25 13:24 | ECHO ---
HEIGHT: 5 ft 3 in WEIGHT: 150 lb 0 oz DATE OF STUDY: 06/25/[address]: Annabel Toscano MD 2-DIMENSIONAL: YES M.MODE: YES DOPPLER: YES COLOR FLOW: YES TDS: NO PORTABLE: NO DEFINITY: NO BUBBLE STUDY: NO DIAGNOSIS: CONGESTIVE HEART FAILURE CARDIAC HISTORY: CATHERIZATION: YES SURGERY: YES PROSTHETIC VALVE: NO PACEMAKER: NO MEASUREMENTS (cm) DIASTOLIC (NORMALS) SYSTOLIC (NORMALS) IVSd 1.1 (0.6-1.2) LA Diam (1.9-4.0) LVEF 35% LVIDd 3.4 (3.5-5.7) LVIDs 2.9 (2.0-3.5) %FS 16% LVPWd 0.8 (0.6-1.2) Ao Diam 3.1 (2.0-3.7) 2 DIMENSIONAL ASSESSMENT: RIGHT ATRIUM: NORMAL LEFT ATRIUM: NORMAL RIGHT VENTRICLE: NORMAL LEFT VENTRICLE: NORMAL SIZE TRICUSPID VALVE: NORMAL MITRAL VALVE: MITRAL ANNULAR CALCIFICATION PULMONIC VALVE: NORMAL AORTIC VALVE: SCLEROSIS PERICARDIAL EFFUSION: NONE AORTIC ROOT: NORMAL LEFT VENTRICULAR WALL MOTION: MODERATE GLOBAL HYPOKINESIS. DOPPLER/COLOR FLOW: MILD TRICUPSID, AORTIC AND MITRAL REGURGITATION. COMMENTS: MILD TRICUPSID, AORTIC AND MITRAL REGURGITATION. LEFT VENTRICULAR EJECTION FRACTION 35%. MODERATE GLOBAL HYPOKINESIS. NORMAL RIGHT VENTRICULAR SYSTOLIC PRESSURE. ATRIAL FIBRILLATION. TECHNOLOGIST: Tracy VELEZ
--- NOTE | 2017-06-25 14:14 | P.PN ---
Subjective Date of Service: 06/25/17 Primary Care Provider: None Chief Complaint: respiratory Failure Patient seen and examined at bedside. Discussed with cardiology. Currently patient is still in atrial fibrillation with RVR. Heart rate between 120-136. Patient denies having any chest pain nausea vomiting or any other symptoms at this time. Review of Systems General: As per HPI Physical Examination - Vital Signs Temperature: 98.2 F Blood Pressure: 132/94 Pulse: 133 Respirations: 30 Pulse Ox (%): 95 - Physical Exam General: Alert, In no apparent distress, Oriented x3 HEENT: Atraumatic Neck: Supple, JVD distended Respiratory: Normal air movement, Crackles/rales Cardiovascular: Normal S1 S2, Irregular heart rate/rhythm Gastrointestinal: Normal bowel sounds, No tenderness Musculoskeletal: No tenderness Integumentary: No rashes Neurological: Normal speech, Normal tone, Normal affect Lymphatics: No axilla or inguinal lymphadenopathy - Studies Medications List Reviewed: Yes Assessment & Plan - Problems (Diagnosis) (1) Respiratory failure Onset Date: 06/25/17 Current Visit: Yes Status: Resolved Plan: Acute hyoxic Hypercapnic Respiratory Failure. Most Likely 2/2 to COPD vs CHF exacerbation -Weaned to NC now, Duonebs and Steroids -Pulmonology consulted. Reccs Appreciated -Procal negative. No need for antibiotics Qualifiers: Chronicity: acute on chronic Respiratory failure complication: hypoxia and hypercapnia Qualified Code(s): J96.21 - Acute and chronic respiratory failure with hypoxia; J96.22 - Acute and chronic respiratory failure with hypercapnia (2) CHF (congestive heart failure) Onset Date: 06/25/17 Current Visit: Yes Status: Acute Plan: H/o CHF with acute worsening. -ECHO pending at this time -BNP >700 -Lasix BID for now Qualifiers: Heart failure type: unspecified Heart failure chronicity: acute on chronic Qualified Code(s): I50.9 - Heart failure, unspecified (3) COPD (chronic obstructive pulmonary disease) Onset Date: 06/25/17 Current Visit: Yes Status: Acute Plan: COPD exacerbation. -Oxygen, Steroids and Duonebs Qualifiers: COPD type: COPD with acute exacerbation Qualified Code(s): J44.1 - Chronic obstructive pulmonary disease with (acute) exacerbation (4) Atrial fibrillation with RVR Onset Date: 06/25/17 Current Visit: Yes Status: Acute Plan: Most likely 2.2 to Albuterol treatment and pt did not get her medication this AM -Increased her BB to 100mg BID. -Cardiology consulted. Reccs appreciated -Amniodrone ggt -Echo pending -Anticoagulation with Eliquis (5) Dementia Onset Date: 06/25/17 Current Visit: Yes Status: Chronic Qualifiers: Dementia type: Alzheimer's disease Alzheimer's disease onset: late-onset Dementia behavioral disturbance: without behavioral disturbance Qualified Code (s): G30.1 - Alzheimer's disease with late onset; F02.80 - Dementia in other diseases classified elsewhere without behavioral disturbance (6) GERD (gastroesophageal reflux disease) Onset Date: 06/25/17 Current Visit: Yes Status: Chronic Qualifiers: Esophagitis presence: without esophagitis Qualified Code(s): K21.9 - Gastro -esophageal reflux disease without esophagitis (7) Hyperlipidemia Onset Date: 06/25/17 Current Visit: Yes Status: Chronic Qualifiers: Hyperlipidemia type: mixed hyperlipidemia Qualified Code(s): E78.2 - Mixed hyperlipidemia (8) Diabetes Onset Date: 06/25/17 Current Visit: Yes Status: Chronic Qualifiers: Diabetes mellitus type: type 2 Diabetes mellitus group home insulin use: with group home use Diabetes mellitus complication status: without complication Qualified Code(s): E11.9 - Type 2 diabetes mellitus without complications; Z79.4 - terminal gauger supervisor (current) use of insulin (9) Hypothyroidism Onset Date: 06/25/17 Current Visit: Yes Status: Chronic Qualifiers: Hypothyroidism type: acquired Qualified Code(s): E03.9 - Hypothyroidism, unspecified (10) Hyponatremia Onset Date: 06/25/17 Current Visit: Yes Status: Acute Plan: Will replace. Most likely 2.2 to Poor PO intake (11) Esophageal stricture Current Visit: Yes Status: Acute Plan: GI consulted for dilation here in the hospital.
[2017-06-25 14:52] LABS: Urine Appearance CLEAR; Urine Bilirubin NEGATIVE (NEG); Urine Blood TRACE (NEG); Urine Color YELLOW; Urine Glucose NEGATIVE (NEG); Urine Protein NEGATIVE (NEG); Urine Specific Gravity <=1.005 (1.005-1.030); Urine Urobilinogen 0.2 mg/dL (0.2-1.0); Urine pH 6.5 (5.0-7.0)
[2017-06-25 14:57] LABS: Urine Microscopic Reflex ORDER UMIC
[2017-06-25 15:11] LABS: Urine Bacteria <20 /HPF (<20); Urine Culture Reflex Order NOT NEEDED; Urine RBC <5 /HPF (NONE SEEN)
[2017-06-25] MEDS: POLYVINYL ALCOHOL 1.4% 15 ML OPTH PRN (15:18)
[2017-06-25] MEDS: DONEPEZIL HCL 5 MG TAB PO SCH (20:04)
[2017-06-25] MEDS: TAMSULOSIN 0.4 MG SR CAP PO SCH (20:04)
[2017-06-25] MEDS: MELATONIN 3 MG TABLET PO SCH (20:07)
[2017-06-25] MEDS ORDERED: AMIODARONE HCL 150 MG in D5W 100 ML IV ONE (21:00)
[2017-06-25] MEDS ORDERED: LORazepam 2 MG/ML VIAL IV STA (21:54)
[2017-06-25] MEDS: HYDROCODONE/APAP 10/325 TAB PO PRN (22:24)
[2017-06-26] MEDS: LEVALBUTEROL 0.63 MG/3 ML NEB NEB SCH ×2 (01:46→07:28)
[2017-06-26] MEDS: IPRATROPIUM BROM 0.5MG/2.5ML NEB SCH ×4 (01:46→20:12)
[2017-06-26 04:58] LABS: Absolute Lymphocytes (CBC) 0.5 K/uL (0.7-4.9); Absolute Monocytes 0.2 K/uL (0.1-1.3); Absolute Neutrophil 5.2 K/uL (1.8-8.0); Basophils % 0.3 % (0-1.3); Eosinophils % 0.1 % (0-4.4); Hematocrit 36.8 % (36.0-45.0); Lymphocytes % 7.8 % (15.3-44.8); MCH 32.2 pg (27.0-35.0); MCV 96.6 fL (80-100); MPV 8.7 fL (7.6-11.3); Monocytes % 4.1 % (3.3-12.3); RBC Red Blood Cell Count 3.81 M/uL (3.86-4.86)
[2017-06-26 05:18] LABS: Albumin 3.6 g/dL (3.2-5.5); Bilirubin Total 0.8 mg/dL (0.3-1.2); Protein, Total 6.7 g/dL (6.0-8.3)
[2017-06-26 05:19] LABS: Potassium 4.6 mEq/L (3.6-5.0)
[2017-06-26 06:14] LABS: Blood Morphology Comment NOT SEEN (NOT SEEN); Platelet Estimate ADEQ; Platelets, Giant FEW
[2017-06-26 06:47] LABS: Magnesium 1.8 mg/dL (1.8-2.5)
[2017-06-26] MEDS: ARFORMOTEROL TARTRATE 15 MCG/2 ML VIAL.NEB NEB SCH ×2 (07:27→20:12)
[2017-06-26] MEDS ORDERED: MAGNESIUM SULFATE 1 gm IVPB 1 GM/100 ML BAG IV ONE (07:36)
--- NOTE | 2017-06-26 07:53 | RAD REPORT ---
EXAM DESCRIPTION: RAD - Chest Single View - 06/25/2017 10:57 pm CLINICAL HISTORY: Device placement PICC line placement COMPARISON: June 25, 2017 FINDINGS: A PICC line has been inserted with its tip crossing midline into the left brachiocephalic vein Improvement in the pulmonary edema has occurred IMPRESSION: PICC line with its tip in the left brachiocephalic vein Improvement in pulmonary edema
--- NOTE | 2017-06-26 07:54 | RAD REPORT ---
EXAM DESCRIPTION: RAD - Chest Single View - 06/26/2017 1:56 am CLINICAL HISTORY: Device placement PICC line placement COMPARISON: June 25, 2017 FINDINGS: A PICC line has been retracted with its tip in the proximal superior vena cava. No change has occurred in the pulmonary edema IMPRESSION: PICC line with its tip in the proximal superior vena cava
--- NOTE | 2017-06-26 08:13 | P.PN ---
Subjective Date of Service: 06/26/17 Primary Care Provider: None Chief Complaint: COPD Subjective: Improving (Patient is doing well denies any shortness of breath cough or congestion however she is on amiodarone for AFib) Review of Systems Unremarkable Physical Examination - Vital Signs Temperature: 97.4 F Blood Pressure: 115/83 Pulse: 101 Respirations: 17 Pulse Ox (%): 97 - Physical Exam General: Alert, Cooperative Respiratory: Clear to auscultation bilaterally, Diminished Cardiovascular: No edema, Normal S1 S2 Gastrointestinal: Normal bowel sounds, Soft and benign - Studies Medications List Reviewed: Yes Assessment & Plan - Problems (Diagnosis) (1) Respiratory failure Onset Date: 06/25/17 Current Visit: Yes Status: Resolved Plan: Patient is 82 years of age admitted with COPD exacerbation doing well use levalbuterol on a p.r.n. basis patient will need a long-acting bronchodilator at home consider performance stroke per 1 amp twice a day with nebulizers p.r.n. or possibly Advair Symbicort Qualifiers: Chronicity: acute on chronic Respiratory failure complication: hypoxia and hypercapnia Qualified Code(s): J96.21 - Acute and chronic respiratory failure with hypoxia; J96.22 - Acute and chronic respiratory failure with hypercapnia
[2017-06-26] MEDS: PANTOPRAZOLE 40MG TABLET PO SCH (08:43)
[2017-06-26] MEDS: LEVOTHYROXINE SOD 0.1 MG TAB PO SCH (08:43)
[2017-06-26] MEDS: predniSONE 10 MG TAB PO SCH ×2 (08:43→21:05)
[2017-06-26] MEDS: PRIMIDONE 50 MG TAB PO SCH ×2 (08:43→21:05)
[2017-06-26] MEDS: GABAPENTIN 300 MG CAP PO SCH ×3 (08:43→21:05)
[2017-06-26] MEDS: DONEPEZIL HCL 5 MG TAB PO SCH ×2 (08:43→21:05)
[2017-06-26] MEDS: AMIODARONE HCL 450 MG in D5W 241 ML IV SCH ×2 (08:45→22:00)
[2017-06-26] MEDS: METOPROLOL XL 50 MG TAB PO SCH ×2 (09:36→21:04)
--- NOTE | 2017-06-26 11:40 | P.PN ---
Subjective Date of Service: 06/26/17 Primary Care Provider: None Chief Complaint: COPD Patient seen and examined at bedside. Discussed with cardiology. Pt c/o of being SOB intermittently and states she can't seem to catch her breath. Currently on Amniodrone ggt. Review of Systems General: As per HPI Physical Examination - Vital Signs Temperature: 97.4 F Blood Pressure: 119/87 Pulse: 104 Respirations: 17 Pulse Ox (%): 97 - Physical Exam General: Alert, In no apparent distress, Oriented x3 HEENT: Atraumatic Neck: Supple, JVD distended Respiratory: Normal air movement, Crackles/rales Cardiovascular: Normal S1 S2, Irregular heart rate/rhythm Gastrointestinal: Normal bowel sounds, Soft and benign, Non-distended, No ascites Musculoskeletal: Swelling (1+) Integumentary: No rashes, No breakdown Neurological: Normal speech, Normal strength at 5/5 x4 extr, Normal tone - Studies Medications List Reviewed: Yes Assessment & Plan - Problems (Diagnosis) (1) Atrial fibrillation with RVR Onset Date: 06/25/17 Current Visit: Yes Status: Acute Plan: Most likely 2.2 to Albuterol treatment and pt did not get her medication this AM -BB 50mg BID. -Cardiology consulted. Reccs appreciated -Amniodrone ggt -Echo with EF of 35% -Anticoagulation with Eliquis (2) CHF (congestive heart failure) Onset Date: 06/25/17 Current Visit: Yes Status: Acute Plan: H/o CHF with acute worsening. -ECHO done -BNP >700 -Lasix BID for now Qualifiers: Heart failure type: unspecified Heart failure chronicity: acute on chronic Qualified Code(s): I50.9 - Heart failure, unspecified (3) COPD (chronic obstructive pulmonary disease) Onset Date: 06/25/17 Current Visit: Yes Status: Acute Plan: COPD exacerbation. -Oxygen, Steroids and Duonebs Qualifiers: COPD type: COPD with acute exacerbation Qualified Code(s): J44.1 - Chronic obstructive pulmonary disease with (acute) exacerbation (4) Respiratory failure Onset Date: 06/25/17 Current Visit: Yes Status: Resolved Plan: Acute hyoxic Hypercapnic Respiratory Failure. Most Likely 2/2 to COPD vs CHF exacerbation -Weaned to NC now, Duonebs and Steroids -Pulmonology consulted. Reccs Appreciated -Procal negative. No need for antibiotics Qualifiers: Chronicity: acute on chronic Respiratory failure complication: hypoxia and hypercapnia Qualified Code(s): J96.21 - Acute and chronic respiratory failure with hypoxia; J96.22 - Acute and chronic respiratory failure with hypercapnia (5) Dementia Onset Date: 06/25/17 Current Visit: Yes Status: Chronic Qualifiers: Dementia type: Alzheimer's disease Alzheimer's disease onset: late-onset Dementia behavioral disturbance: without behavioral disturbance Qualified Code (s): G30.1 - Alzheimer's disease with late onset; F02.80 - Dementia in other diseases classified elsewhere without behavioral disturbance (6) GERD (gastroesophageal reflux disease) Onset Date: 06/25/17 Current Visit: Yes Status: Chronic Qualifiers: Esophagitis presence: without esophagitis Qualified Code(s): K21.9 - Gastro -esophageal reflux disease without esophagitis (7) Hyperlipidemia Onset Date: 06/25/17 Current Visit: Yes Status: Chronic Qualifiers: Hyperlipidemia type: mixed hyperlipidemia Qualified Code(s): E78.2 - Mixed hyperlipidemia (8) Diabetes Onset Date: 06/25/17 Current Visit: Yes Status: Chronic Qualifiers: Diabetes mellitus type: type 2 Diabetes mellitus patent examiner insulin use: with patent examiner use Diabetes mellitus complication status: without complication Qualified Code(s): E11.9 - Type 2 diabetes mellitus without complications; Z79.4 - lease administration supervisor (current) use of insulin (9) Hypothyroidism Onset Date: 06/25/17 Current Visit: Yes Status: Chronic Qualifiers: Hypothyroidism type: acquired Qualified Code(s): E03.9 - Hypothyroidism, unspecified (10) Hyponatremia Onset Date: 06/25/17 Current Visit: Yes Status: Acute Plan: Will replace. Most likely 2.2 to Poor PO intake (11) Esophageal stricture Current Visit: Yes Status: Acute Plan: GI consulted for dilation here in the hospital.
--- NOTE | 2017-06-26 12:13 | CON ---
Date of Consultation: 06/25/2017 The patient admitted on 06/24/2017. I saw the patient on 06/25/2017. Reason For Consultation: Congestive heart failure, respiratory failure. History Of Present Illness: Ms. Dunlap is an 82-year-old woman has a history of coronary artery dis ease, atrial fibrillation, diabetes, dyslipidemia, status post AAA repair, has a history of COPD as w ell. Came in with shortness of breath, congestive heart failure by x-ray and seen on BiPAP. No ches t pain or syncope reported but she was noted to be in atrial fibrillation rate of 160-170. Metoprolo l was given 50 mg up to 3 times a day with continues rapid heart rate. Past Medical History: As stated above. Allergies: NONE. Review of Systems: Negative. Social History: Negative. Family History: Negative. Medications: Include metoprolol, Protonix, and inhalers and many other pain medication. Physical Examination: General: On BiPAP, looks like in no acute distress. Vital Signs: Heart rate in atrial fibrillation 150. HEENT: Negative. Neck: Supple. No bruit. Chest: Reveals diffuse wheezing and some rales at the bases. Cardiac: Revealed atrial fibrillation with rapid rate. No murmurs, gallops, or rubs. Abdomen: Benign. Extremities: Revealed trace edema. Diagnostic Data: Her BNP was 701. Troponin 0.04. EKG was atrial fibrillation. Impression And Plan: 1.Rapid atrial fibrillation, unresponsive to beta blockers, on Lovenox. I think we should put her o n IV amiodarone at least for rate control. Hopefully conversion may help her overall cardiac and res piratory status. We should continue Lovenox. Continue metoprolol as well as Protonix and inhalers a nd diuresis and I will continue to follow along. She has a history of abdominal aortic aneurysm repa ir that is stable. Her diabetes is fairly well controlled. Her dyslipidemia is well controlled. Sh e has a history of coronary artery disease but may need to be re-evaluated after all settled down. SHAILA/BOBBY Voice ID: [id number] Report ID: [id number]
[2017-06-26] MEDS: HYDROCODONE/APAP 10/325 TAB PO PRN (14:28)
--- NOTE | 2017-06-26 14:34 | PN ---
Ms. Dunlap is in AFib whole time she has been here. I do not think we have a very clear history of whether this is an acute new onset problem or it is a chronic problem in the assisted. She takes a beta-aki, but no anticoagulants. All the history is fairly unreliable because of her underlyi ng dementia. She seems to think she has had AFib before. I am not sure if she has it at all the [facility]. We will try and get records from the assisted. Family information about her past history of AFib. Presently, she is anticoagulated. Her heart rate is slower. She is still in AFib. She is no t anticoagulated presently, but I think she probably should be all discussed with Dr. Toscano. FELIPE/BOBBY Voice ID: [id number] Report ID: [id number]
--- NOTE | 2017-06-26 17:51 | RAD REPORT ---
EXAM DESCRIPTION: RAD - Barium Swallow Modified - 06/26/2017 3:52 pm CLINICAL HISTORY: Aspiration FINDINGS: LARYNGEAL PENETRATION CLEARED WITH NECTAR NOT CLEARED WITH HONEY. ASPIRATION NO COUGH WITH THIN. PHARYNGEAL RESIDUE MILD VALLECULAR PYRIFORM REDUCED OPENING OF THE UPPER ESOPHAGEL SIGNIFICANT ESOPHAGEAL STASIS
[2017-06-26] MEDS ORDERED: LORazepam 2 MG/ML VIAL IV ONE (19:44)
[2017-06-26] MEDS: TAMSULOSIN 0.4 MG SR CAP PO SCH (21:04)
[2017-06-26] MEDS: MELATONIN 3 MG TABLET PO SCH (21:04)
[2017-06-26] MEDS: ENOXAPARIN 60 MG/0.6 ML SQ SCH (21:05)
[2017-06-27] MEDS: IPRATROPIUM BROM 0.5MG/2.5ML NEB SCH ×4 (02:09→19:37)
[2017-06-27 05:13] LABS: Absolute Lymphocytes (CBC) 0.6 K/uL (0.7-4.9); Absolute Monocytes 0.6 K/uL (0.1-1.3); Absolute Neutrophil 5.6 K/uL (1.8-8.0); Basophils % 0.3 % (0-1.3); Eosinophils % 0.5 % (0-4.4); Hematocrit 35.4 % (36.0-45.0); Lymphocytes % 8.1 % (15.3-44.8); MCH 32.7 pg (27.0-35.0); MCV 95.2 fL (80-100); MPV 8.8 fL (7.6-11.3); Monocytes % 8.2 % (3.3-12.3); RBC Red Blood Cell Count 3.72 M/uL (3.86-4.86)
[2017-06-27 06:04] LABS: Albumin 3.3 g/dL (3.2-5.5); Bilirubin Total 0.8 mg/dL (0.3-1.2); Protein, Total 6.6 g/dL (6.0-8.3)
[2017-06-27 06:06] LABS: Potassium 4.6 mEq/L (3.6-5.0)
[2017-06-27 06:42] LABS: Magnesium 2.1 mg/dL (1.8-2.5)
[2017-06-27] MEDS: ARFORMOTEROL TARTRATE 15 MCG/2 ML VIAL.NEB NEB SCH ×2 (08:02→19:37)
[2017-06-27] MEDS: GABAPENTIN 300 MG CAP PO SCH ×3 (08:31→20:31)
[2017-06-27] MEDS: predniSONE 10 MG TAB PO SCH ×2 (08:31→20:32)
[2017-06-27] MEDS: PANTOPRAZOLE 40MG TABLET PO SCH (08:31)
[2017-06-27] MEDS: LEVOTHYROXINE SOD 0.1 MG TAB PO SCH (08:31)
[2017-06-27] MEDS: DONEPEZIL HCL 5 MG TAB PO SCH ×2 (08:32→20:31)
[2017-06-27] MEDS: METOPROLOL XL 50 MG TAB PO SCH ×2 (08:32→20:34)
[2017-06-27] MEDS: PRIMIDONE 50 MG TAB PO SCH ×2 (08:32→20:32)
[2017-06-27] MEDS: HYDROCODONE/APAP 10/325 TAB PO PRN ×2 (08:33→15:07)
[2017-06-27] MEDS: ENOXAPARIN 60 MG/0.6 ML SQ SCH ×2 (08:35→20:32)
[2017-06-27] MEDS: AMIODARONE HCL 200 MG TAB PO SCH ×2 (09:52→20:31)
--- NOTE | 2017-06-27 13:16 | P.PN ---
Subjective Date of Service: 06/27/17 Primary Care Provider: None Chief Complaint: COPD Patient seen and examined at bedside. Discussed with cardiology. No c/o offer at this time. Off the amniodrone ggt. Now on PO amniodrone Review of Systems General: As per HPI Physical Examination - Vital Signs Temperature: 97.6 F Blood Pressure: 124/88 Pulse: 102 Respirations: 28 Pulse Ox (%): 96 - Physical Exam General: Alert, In no apparent distress, Oriented x3 HEENT: Atraumatic, PERRLA, EOMI Neck: Supple, JVD not distended Respiratory: Clear to auscultation bilaterally, Normal air movement Cardiovascular: Normal S1 S2, Irregular heart rate/rhythm Gastrointestinal: Normal bowel sounds, No tenderness Musculoskeletal: No tenderness Integumentary: No rashes Neurological: Normal speech, Normal tone, Normal affect Lymphatics: No axilla or inguinal lymphadenopathy - Studies Medications List Reviewed: Yes Assessment & Plan - Problems (Diagnosis) (1) Atrial fibrillation with RVR Onset Date: 06/25/17 Current Visit: Yes Status: Acute Plan: Acute vs chronic due to unreliable history due to dementia. However, Pt does take BB and Eliquis -BB 50mg BID. -Cardiology consulted. Reccs appreciated -Amniodrone ggt now dc and on PO -Echo with EF of 35% -Anticoagulation with Eliquis (2) CHF (congestive heart failure) Onset Date: 06/25/17 Current Visit: Yes Status: Acute Plan: H/o CHF with acute worsening -ECHO done with EF of 35% -BNP >700 -Lasix BID for now Qualifiers: Heart failure type: unspecified Heart failure chronicity: acute on chronic Qualified Code(s): I50.9 - Heart failure, unspecified (3) COPD (chronic obstructive pulmonary disease) Onset Date: 06/25/17 Current Visit: Yes Status: Acute Plan: COPD exacerbation. -Oxygen, Steroids and Duonebs Qualifiers: COPD type: COPD with acute exacerbation Qualified Code(s): J44.1 - Chronic obstructive pulmonary disease with (acute) exacerbation (4) Respiratory failure Onset Date: 06/25/17 Current Visit: Yes Status: Resolved Plan: Acute hyoxic Hypercapnic Respiratory Failure. Most Likely 2/2 to COPD vs CHF exacerbation -Weaned to NC now, Duonebs and Steroids -Pulmonology consulted. Reccs Appreciated -Procal negative. No need for antibiotics Qualifiers: Chronicity: acute on chronic Respiratory failure complication: hypoxia and hypercapnia Qualified Code(s): J96.21 - Acute and chronic respiratory failure with hypoxia; J96.22 - Acute and chronic respiratory failure with hypercapnia (5) Dementia Onset Date: 06/25/17 Current Visit: Yes Status: Chronic Qualifiers: Dementia type: Alzheimer's disease Alzheimer's disease onset: late-onset Dementia behavioral disturbance: without behavioral disturbance Qualified Code (s): G30.1 - Alzheimer's disease with late onset; F02.80 - Dementia in other diseases classified elsewhere without behavioral disturbance (6) GERD (gastroesophageal reflux disease) Onset Date: 06/25/17 Current Visit: Yes Status: Chronic Qualifiers: Esophagitis presence: without esophagitis Qualified Code(s): K21.9 - Gastro -esophageal reflux disease without esophagitis (7) Hyperlipidemia Onset Date: 06/25/17 Current Visit: Yes Status: Chronic Qualifiers: Hyperlipidemia type: mixed hyperlipidemia Qualified Code(s): E78.2 - Mixed hyperlipidemia (8) Diabetes Onset Date: 06/25/17 Current Visit: Yes Status: Chronic Qualifiers: Diabetes mellitus type: type 2 Diabetes mellitus fci insulin use: with fci use Diabetes mellitus complication status: without complication Qualified Code(s): E11.9 - Type 2 diabetes mellitus without complications; Z79.4 - terminal gauger supervisor (current) use of insulin (9) Hypothyroidism Onset Date: 06/25/17 Current Visit: Yes Status: Chronic Qualifiers: Hypothyroidism type: acquired Qualified Code(s): E03.9 - Hypothyroidism, unspecified (10) Hyponatremia Onset Date: 06/25/17 Current Visit: Yes Status: Acute Plan: Will replace. Most likely 2.2 to Poor PO intake (11) Esophageal stricture Current Visit: Yes Status: Acute Plan: GI consulted for dilation here in the hospital.
[2017-06-27] MEDS: LEVALBUTEROL 0.63 MG/3 ML NEB NEB PRN ×2 (18:27→22:37)
[2017-06-27] MEDS: IPRATROPIUM BROM 0.5MG/2.5ML IH PRN ×2 (19:36→22:36)
[2017-06-27] MEDS: MELATONIN 3 MG TABLET PO SCH (20:30)
[2017-06-27] MEDS: TAMSULOSIN 0.4 MG SR CAP PO SCH (20:30)
[2017-06-27] MEDS: APIXABAN 5 MG TABLET PO SCH (20:31)
[2017-06-27] MEDS: LORAZEPAM 0.5 MG TABLET PO PRN (22:19)
[2017-06-28] MEDS: IPRATROPIUM BROM 0.5MG/2.5ML NEB SCH ×4 (01:36→20:26)
[2017-06-28] MEDS: LEVALBUTEROL 0.63 MG/3 ML NEB NEB PRN (01:37)
[2017-06-28 01:40] LABS: Phosphorus 2.5 mg/dL (2.5-4.3)
[2017-06-28 01:55] LABS: Magnesium 2.1 mg/dL (1.8-2.5)
--- NOTE | 2017-06-28 02:05 | PN ---
Date of Progress Note: 06/27/2017 The patient has been followed since 06/24/2017. Came in with rapid atrial fibrillation, on Eliquis a nd beta-aki. Has [id number] systolic congestive heart failure as well as COPD exacerbation . Ejection fraction of 35%. She today is feeling much better, has diuresed well. She remained in a trial fibrillation on IV amiodarone, but her heart rate is in the 80s. I will switch her to p.o. ami odarone for now and move her to the floor. Continue the Eliquis. Hopefully, send her home in the la xt day or two. I am not so sure if her atrial fibrillation is likely to convert, but maybe we will g et her rate controlled for now and switch her back to beta-blockers eventually or maybe even consider an ablation and a pacemaker if this becomes a recurrent problem. SHAILA/BOBBY Voice ID: [id number] Report ID: [id number]
[2017-06-28 02:07] LABS: Potassium 4.7 mEq/L (3.6-5.0)
--- NOTE | 2017-06-28 03:37 | P.PN ---
Date of Service: 06/28/17 Patient's labs are worsening; sodium has decreased. Patient's medications reviewed. Will check FeNa, and determine how best to treat patient. Continue with monitoring fluid status as patient has CHF with an EF of 30%. May need to fluid restrict if SIADH, but will awaiting labs. Also recently had a CT chest a year ago which revealed pulmonary nodules which were stable. May need to check this if unable to determine etiology of low sodium.
[2017-06-28] MEDS ORDERED: POTASSIUM PHOS IN 0.9 % NACL 15 MMOL/250 ML BAG IV ONE ×2 (03:54→08:00)
[2017-06-28] MEDS: ARFORMOTEROL TARTRATE 15 MCG/2 ML VIAL.NEB NEB SCH ×2 (08:10→20:26)
[2017-06-28 08:16] LABS: Thyroid Stimulating Hormone 2.54 uIU/mL (0.34-5.60)
[2017-06-28 08:36] LABS: Potassium 4.8 mEq/L (3.6-5.0)
[2017-06-28] MEDS: ENOXAPARIN 60 MG/0.6 ML SQ SCH (09:00)
[2017-06-28] MEDS: PRIMIDONE 50 MG TAB PO SCH ×2 (09:30→22:09)
[2017-06-28] MEDS: predniSONE 10 MG TAB PO SCH ×2 (09:30→22:09)
[2017-06-28] MEDS: AMIODARONE HCL 200 MG TAB PO SCH ×2 (09:31→22:06)
[2017-06-28] MEDS: DONEPEZIL HCL 5 MG TAB PO SCH ×2 (09:31→22:03)
[2017-06-28] MEDS: METOPROLOL XL 50 MG TAB PO SCH ×2 (09:31→22:05)
[2017-06-28] MEDS: GABAPENTIN 300 MG CAP PO SCH ×3 (09:31→22:08)
[2017-06-28] MEDS: APIXABAN 5 MG TABLET PO SCH ×2 (09:32→22:06)
[2017-06-28] MEDS: PANTOPRAZOLE 40MG TABLET PO SCH (09:32)
[2017-06-28] MEDS: LEVOTHYROXINE SOD 0.1 MG TAB PO SCH (09:32)
[2017-06-28] MEDS: GLUCERNA SHAKE 237 ML CAN PO SCH (09:34)
[2017-06-28] MEDS: HYDROCODONE/APAP 10/325 TAB PO PRN ×2 (09:54→20:43)
--- NOTE | 2017-06-28 12:49 | P.PN ---
Subjective Date of Service: 06/28/17 Primary Care Provider: None Chief Complaint: COPD Patient seen and examined at bedside. Discussed with cardiology. No c/o offer at this time. Doing well overall. Sitting up in the chair. Review of Systems 10-point ROS is otherwise unremarkable Physical Examination - Vital Signs Temperature: 98.2 F Blood Pressure: 121/87 Pulse: 98 Respirations: 18 Pulse Ox (%): 96 - Physical Exam General: Alert, In no apparent distress HEENT: Atraumatic, PERRLA, EOMI Neck: Supple, JVD not distended Respiratory: Normal air movement, Crackles/rales Cardiovascular: Regular rate/rhythm, Normal S1 S2 Gastrointestinal: Normal bowel sounds, No tenderness Musculoskeletal: No tenderness Integumentary: No rashes Neurological: Normal speech, Normal tone, Normal affect Lymphatics: No axilla or inguinal lymphadenopathy - Studies Medications List Reviewed: Yes Assessment & Plan - Problems (Diagnosis) (1) Atrial fibrillation with RVR Onset Date: 06/25/17 Current Visit: Yes Status: Acute Plan: Acute vs chronic due to unreliable history due to dementia. However, Pt does take BB and Eliquis -BB 50mg BID. -Cardiology consulted. Reccs appreciated -Amniodrone ggt now dc and on PO -Echo with EF of 35% -Anticoagulation with Eliquis (2) CHF (congestive heart failure) Onset Date: 06/25/17 Current Visit: Yes Status: Acute Plan: H/o CHF with acute worsening -ECHO done with EF of 35% -BNP >700 -Lasix BID for now Qualifiers: Heart failure type: unspecified Heart failure chronicity: acute on chronic Qualified Code(s): I50.9 - Heart failure, unspecified (3) COPD (chronic obstructive pulmonary disease) Onset Date: 06/25/17 Current Visit: Yes Status: Acute Plan: COPD exacerbation. -Oxygen, Steroids and Duonebs Qualifiers: COPD type: COPD with acute exacerbation Qualified Code(s): J44.1 - Chronic obstructive pulmonary disease with (acute) exacerbation (4) Respiratory failure Onset Date: 06/25/17 Current Visit: Yes Status: Resolved Plan: Acute hyoxic Hypercapnic Respiratory Failure. Most Likely 2/2 to COPD vs CHF exacerbation -Weaned to NC now, Duonebs and Steroids -Pulmonology consulted. Reccs Appreciated -Procal negative. No need for antibiotics Qualifiers: Chronicity: acute on chronic Respiratory failure complication: hypoxia and hypercapnia Qualified Code(s): J96.21 - Acute and chronic respiratory failure with hypoxia; J96.22 - Acute and chronic respiratory failure with hypercapnia (5) Dementia Onset Date: 06/25/17 Current Visit: Yes Status: Chronic Qualifiers: Dementia type: Alzheimer's disease Alzheimer's disease onset: late-onset Dementia behavioral disturbance: without behavioral disturbance Qualified Code (s): G30.1 - Alzheimer's disease with late onset; F02.80 - Dementia in other diseases classified elsewhere without behavioral disturbance (6) Hyponatremia Onset Date: 06/25/17 Current Visit: Yes Status: Resolved Plan: Will give a bolus of 250ml and observe at this time. (7) GERD (gastroesophageal reflux disease) Onset Date: 06/25/17 Current Visit: Yes Status: Chronic Qualifiers: Esophagitis presence: without esophagitis Qualified Code(s): K21.9 - Gastro -esophageal reflux disease without esophagitis (8) Hyperlipidemia Onset Date: 06/25/17 Current Visit: Yes Status: Chronic Qualifiers: Hyperlipidemia type: mixed hyperlipidemia Qualified Code(s): E78.2 - Mixed hyperlipidemia (9) Diabetes Onset Date: 06/25/17 Current Visit: Yes Status: Chronic Qualifiers: Diabetes mellitus type: type 2 Diabetes mellitus residential insulin use: with administration professional use Diabetes mellitus complication status: without complication Qualified Code(s): E11.9 - Type 2 diabetes mellitus without complications; Z79.4 - creative guru (current) use of insulin (10) Hypothyroidism Onset Date: 06/25/17 Current Visit: Yes Status: Chronic Qualifiers: Hypothyroidism type: acquired Qualified Code(s): E03.9 - Hypothyroidism, unspecified Discharge Plan: Alf Plan to discharge in: 24 Hours - Code Status/Comfort Care Code Status Assessed: Yes Critical Care: No
[2017-06-28] MEDS ORDERED: NA CHLORIDE 0.9% 250 ML IV ONE (12:54)
[2017-06-28 15:36] LABS: Potassium 5.4 mEq/L (3.6-5.0)
[2017-06-28] MEDS: LORAZEPAM 0.5 MG TABLET PO PRN (20:43)
[2017-06-28] MEDS: TAMSULOSIN 0.4 MG SR CAP PO SCH (22:04)
[2017-06-28] MEDS: MELATONIN 3 MG TABLET PO SCH (22:09)
[2017-06-29] MEDS ORDERED: LORazepam 2 MG/ML VIAL IV ONE (01:24)
[2017-06-29] MEDS: IPRATROPIUM BROM 0.5MG/2.5ML NEB SCH ×4 (01:49→19:46)
[2017-06-29 05:26] LABS: Phosphorus 3.6 mg/dL (2.5-4.3)
[2017-06-29 05:30] LABS: Potassium 5.5 mEq/L (3.6-5.0)
[2017-06-29] MEDS ORDERED: FUROSEMIDE 20 MG/ 2ML VIAL IV ONE (05:48)
[2017-06-29] MEDS ORDERED: SOD POLYSTYREN SUL 15 GM/60 ML UCUP PO ONE (06:13)
[2017-06-29] MEDS: ARFORMOTEROL TARTRATE 15 MCG/2 ML VIAL.NEB NEB SCH ×2 (07:35→19:46)
[2017-06-29] MEDS: LEVOTHYROXINE SOD 0.1 MG TAB PO SCH (09:27)
[2017-06-29] MEDS: predniSONE 10 MG TAB PO SCH (09:28)
[2017-06-29] MEDS: APIXABAN 5 MG TABLET PO SCH ×2 (09:28→20:04)
[2017-06-29] MEDS: PANTOPRAZOLE 40MG TABLET PO SCH (09:28)
[2017-06-29] MEDS: AMIODARONE HCL 200 MG TAB PO SCH ×2 (09:29→20:03)
[2017-06-29] MEDS: METOPROLOL XL 50 MG TAB PO SCH ×2 (09:29→20:04)
[2017-06-29] MEDS: PRIMIDONE 50 MG TAB PO SCH ×2 (09:30→20:03)
[2017-06-29] MEDS: DONEPEZIL HCL 5 MG TAB PO SCH ×2 (09:30→20:03)
[2017-06-29] MEDS: GABAPENTIN 300 MG CAP PO SCH ×3 (09:30→20:03)
--- NOTE | 2017-06-29 09:59 | P.PN ---
Subjective Date of Service: 06/29/17 Primary Care Provider: None Chief Complaint: COPD Patient seen and examined at bedside. Discussed with cardiology. Pt is lying in bed feeling very weak today. Currently complains of having SOB. Review of Systems General: As per HPI Physical Examination - Vital Signs Temperature: 97.0 F Blood Pressure: 110/84 Pulse: 93 Respirations: 20 Pulse Ox (%): 91 - Physical Exam General: Alert, In no apparent distress, Oriented x3 HEENT: Atraumatic Neck: JVD distended Respiratory: Normal air movement, Crackles/rales, Rhonchi/gurgles Cardiovascular: Regular rate/rhythm, Normal S1 S2, Systolic murmur Gastrointestinal: Normal bowel sounds, Soft and benign, Non-distended Musculoskeletal: No clubbing, No swelling - Studies Medications List Reviewed: Yes Assessment & Plan - Problems (Diagnosis) (1) Respiratory failure Onset Date: 06/25/17 Current Visit: Yes Status: Resolved Plan: Acute hypoxic Hypercapnic Respiratory Failure. Most Likely 2/2 to COPD vs CHF exacerbation -Weaned to NC now, Duonebs and Steroids -Pulmonology consulted. Reccs Appreciated -Procal negative. No need for antibiotics -CT chest Pending today. Pt has a history of Lung Nodule in the past Qualifiers: Chronicity: acute on chronic Respiratory failure complication: hypoxia and hypercapnia Qualified Code(s): J96.21 - Acute and chronic respiratory failure with hypoxia; J96.22 - Acute and chronic respiratory failure with hypercapnia (2) Atrial fibrillation with RVR Onset Date: 06/25/17 Current Visit: Yes Status: Acute Plan: Acute vs chronic due to unreliable history due to dementia. However, Pt does take BB and Eliquis -BB 50mg BID. -Cardiology consulted. Reccs appreciated -PO amniodrone -Echo with EF of 35% -Anticoagulation with Eliquis (3) CHF (congestive heart failure) Onset Date: 06/25/17 Current Visit: Yes Status: Acute Plan: H/o CHF with acute worsening -ECHO done with EF of 35% -BNP >700 -Lasix 20mg IV given hyponatremia and Hypercholremia -Fluids Restriction Qualifiers: Heart failure type: unspecified Heart failure chronicity: acute on chronic Qualified Code(s): I50.9 - Heart failure, unspecified (4) COPD (chronic obstructive pulmonary disease) Onset Date: 06/25/17 Current Visit: Yes Status: Acute Plan: COPD exacerbation. -Oxygen, Steroids and Duonebs Qualifiers: COPD type: COPD with acute exacerbation Qualified Code(s): J44.1 - Chronic obstructive pulmonary disease with (acute) exacerbation (5) Hyponatremia Onset Date: 06/25/17 Current Visit: Yes Status: Resolved Plan: Hyponatremia with Hypercholermia -Possible SIADH given the history of lung nodule -Nephrology consulted. -CT chest pending -Fluid restriction -Lasix 20mg Daily for now (6) Dementia Onset Date: 06/25/17 Current Visit: Yes Status: Chronic Qualifiers: Dementia type: Alzheimer's disease Alzheimer's disease onset: late-onset Dementia behavioral disturbance: without behavioral disturbance Qualified Code (s): G30.1 - Alzheimer's disease with late onset; F02.80 - Dementia in other diseases classified elsewhere without behavioral disturbance (7) GERD (gastroesophageal reflux disease) Onset Date: 06/25/17 Current Visit: Yes Status: Chronic Qualifiers: Esophagitis presence: without esophagitis Qualified Code(s): K21.9 - Gastro -esophageal reflux disease without esophagitis (8) Hyperlipidemia Onset Date: 06/25/17 Current Visit: Yes Status: Chronic Qualifiers: Hyperlipidemia type: mixed hyperlipidemia Qualified Code(s): E78.2 - Mixed hyperlipidemia (9) Diabetes Onset Date: 06/25/17 Current Visit: Yes Status: Chronic Qualifiers: Diabetes mellitus type: type 2 Diabetes mellitus ophthalmic lens inspector insulin use: with ophthalmic lens inspector use Diabetes mellitus complication status: without complication Qualified Code(s): E11.9 - Type 2 diabetes mellitus without complications; Z79.4 - arboreal scientist (current) use of insulin (10) Hypothyroidism Onset Date: 06/25/17 Current Visit: Yes Status: Chronic Qualifiers: Hypothyroidism type: acquired Qualified Code(s): E03.9 - Hypothyroidism, unspecified Discharge Plan: Jail Plan to discharge in: 48 Hours - Code Status/Comfort Care Code Status Assessed: Yes Critical Care: No
[2017-06-29] MEDS: GLUCERNA SHAKE 237 ML CAN PO SCH (10:15)
--- NOTE | 2017-06-29 11:41 | P.CNS ---
Date of Consult: 06/29/17 patient seen for nephrology consult for hyponatremia. case reviewed with Nurse, Tommy and the hospitalist, Dr. Romeo Toscano. Also reviewed plan with patient and daughter in room ([place]). patient looks tired and weak. hx of heavy smoking in past for years and steroid treatment for copd exacerbations. also with ? chf. now with na in 120 range/ potassium slightly high and lower bp. has been ordered prednisone 20mg for today and a CT scan of lungs is pending to evaluate ? of lung cancer. tsh is ok and cortisol level is quite low. volume status seems close to euvolemic...? mild congestion but hardly any edema and lung sounds good b/l with decreased breath sounds. vs stable labs reviewed. meds reviewed. (gabapentin and aricept could contribute to hyponatremia though patient has several other reasons for her low sodium). pmhx: as above. chart reviewed. fam hx: non-contributory. social: hx of heavy smoking. group home resident. good family support, two daugters (one is in room with her)...advised her to work with mom on care planning/poa for medical decisions. lungs: cta with decreased bs b/l cvs: distant/difficult to hear. some wheezing. abd: nt/bs + ext: trace edema a/p: hyponatremia: discussed with daughter and hospitalist and RN. agree with CT to r/o lung ca. agree with prednisone. slow taper as patient seems to have adrenal insufficieny. monitor bp closely...stable currently. 3% saline...very careful, judicious and just 50 ccs/hour for 3 hours (total 150 ccs only). lasix 20mg iv times one now. repeat chem 7. fall precautions. if low sodium worsens or persists, may consider cutting back on gabapentin and/or aricept if this can be safely done as these medications could also contribute to hyponatremia. I think, given component of adrenal insufficiency, her na should improve with careful steroid dosing and slow taper; if CT scan shows lung cancer then further review of aggressiveness and direction of care would need to be undertaken by primary team with family and patient. thanks for consult. call with any questions. [phone]
--- NOTE | 2017-06-29 12:35 | RAD REPORT ---
EXAM DESCRIPTION: CT - Thorax Wo Con - 06/29/2017 11:58 am CLINICAL HISTORY: Pulmonary nodules, shortness of breath, COPD COMPARISON: Portable chest June 26, 2017, CT chest May 2016 TECHNIQUE: Axial 5 mm thick images of the chest were obtained without IV contrast. All CT scans are performed using dose optimization technique as appropriate and may include automated exposure control or mA/KV adjustment according to patient size.Caps FINDINGS: Partial atelectasis present in each lower lobe. Minimal atelectasis changes near the lingu la left upper lobe and in the right upper lobe. Small to moderate bilateral pleural effusions are pre sent larger on the right. An 11 millimeter dense nodule seen in the right upper lobe on the May study is still present. The nodule is distorted somewhat by the atelectasis and fluid. Size has not changed. Interstitial markings are prominent. No large area of consolidation. Lung parenchymal [place] not currently suspected. No pneumothorax. Small nonspecific mediastinal lymph nodes are present not substantially different from comparison. CA BG surgical changes are noted. Dense coronary artery and aortic calcifications are present. There are dense calcifications of the bronchial tree with no endobronchial lesion. Vascular assessment is limi brendan in the absence of contrast appear no pericardial effusion. No chest wall mass or abnormal axillary lymphadenopathy. Right upper extremity PICC line is in place with the tip in the SVC. IMPRESSION: Small to moderate bilateral pleural effusions with partial atelectasis in each lower lob e. No suspicious mass in the lung parenchyma. Right upper lobe nodule has not change from May 2016. No focal consolidation to suspect any significant pneumonia. Mild interstitial edema or infiltrate is still present.
[2017-06-29] MEDS ORDERED: [UNRECOGNIZED DRUG - OTHER] IV SCH (13:00)
[2017-06-29] MEDS: FUROSEMIDE 20 MG/ 2ML VIAL IV SCH (13:35)
[2017-06-29] MEDS: predniSONE 20 MG TAB PO SCH (20:04)
[2017-06-29] MEDS: TAMSULOSIN 0.4 MG SR CAP PO SCH (20:04)
[2017-06-29 20:05] LABS: UR CREAT 15.7 mg/dL
[2017-06-29] MEDS: MELATONIN 3 MG TABLET PO SCH (20:05)
[2017-06-29] MEDS: HYDROCODONE/APAP 10/325 TAB PO PRN (20:16)
[2017-06-30] MEDS: IPRATROPIUM BROM 0.5MG/2.5ML NEB SCH ×4 (02:04→19:50)
[2017-06-30] MEDS: LEVALBUTEROL 0.63 MG/3 ML NEB NEB PRN ×2 (02:04→13:34)
[2017-06-30] MEDS: LORAZEPAM 0.5 MG TABLET PO PRN ×2 (02:48→21:00)
[2017-06-30 06:28] LABS: Potassium 4.7 mEq/L (3.6-5.0)
[2017-06-30] MEDS: ARFORMOTEROL TARTRATE 15 MCG/2 ML VIAL.NEB NEB SCH ×2 (07:13→19:50)
[2017-06-30] MEDS: IPRATROPIUM BROM 0.5MG/2.5ML IH PRN (07:13)
[2017-06-30] MEDS: APIXABAN 5 MG TABLET PO SCH ×2 (08:34→21:01)
[2017-06-30] MEDS: GABAPENTIN 300 MG CAP PO SCH ×3 (08:34→21:01)
[2017-06-30] MEDS: LEVOTHYROXINE SOD 0.1 MG TAB PO SCH (08:34)
[2017-06-30] MEDS: DONEPEZIL HCL 5 MG TAB PO SCH ×2 (08:34→21:02)
[2017-06-30] MEDS: AMIODARONE HCL 200 MG TAB PO SCH ×2 (08:34→21:02)
[2017-06-30] MEDS: METOPROLOL XL 50 MG TAB PO SCH ×2 (08:34→21:01)
[2017-06-30] MEDS: PANTOPRAZOLE 40MG TABLET PO SCH (08:34)
[2017-06-30] MEDS: predniSONE 20 MG TAB PO SCH ×2 (08:34→21:02)
[2017-06-30] MEDS: FUROSEMIDE 20 MG/ 2ML VIAL IV SCH (08:35)
[2017-06-30] MEDS: PRIMIDONE 50 MG TAB PO SCH ×2 (08:35→21:02)
[2017-06-30] MEDS: GLUCERNA SHAKE 237 ML CAN PO SCH (09:11)
--- NOTE | 2017-06-30 13:33 | P.PN ---
Subjective Date of Service: 06/30/17 Primary Care Provider: None Chief Complaint: COPD Patient seen and examined at bedside. Discussed with cardiology. Currently in ICU doing well overall. S/p Hypertonic saline bolus. Review of Systems General: As per HPI Physical Examination - Vital Signs Temperature: 97.9 F Blood Pressure: 114/92 Pulse: 104 Respirations: 20 Pulse Ox (%): 97 - Physical Exam General: Alert, In no apparent distress HEENT: Atraumatic, PERRLA, EOMI Neck: Supple, JVD not distended Respiratory: Normal air movement, Crackles/rales Cardiovascular: Normal S1 S2, Irregular heart rate/rhythm Gastrointestinal: Normal bowel sounds, No tenderness Musculoskeletal: No tenderness Integumentary: No rashes Neurological: Normal speech, Normal tone, Normal affect Lymphatics: No axilla or inguinal lymphadenopathy - Studies Medications List Reviewed: Yes Assessment & Plan - Problems (Diagnosis) (1) Hyponatremia Onset Date: 06/25/17 Current Visit: Yes Status: Resolved Plan: Hyponatremia with Hypercholermia -Most likely Adrenal Insuffiency. -Nephrology consulted. Appreciated reccs -S/P Hypertonic Saline bolus -Prednisone 20mg daily with tapering dose -CT chest negative for any changes in the lung nodule. -Fluid restriction -Lasix 20mg Daily for now (2) Respiratory failure Onset Date: 06/25/17 Current Visit: Yes Status: Resolved Plan: Acute hypoxic Hypercapnic Respiratory Failure. Most Likely 2/2 to COPD vs CHF exacerbation -Weaned to NC now, Duonebs and Steroids -Pulmonology consulted. Reccs Appreciated -Procal negative. No need for antibiotics -CT chest negative for any changes in the lung nodule. Qualifiers: Chronicity: acute on chronic Respiratory failure complication: hypoxia and hypercapnia Qualified Code(s): J96.21 - Acute and chronic respiratory failure with hypoxia; J96.22 - Acute and chronic respiratory failure with hypercapnia (3) Atrial fibrillation with RVR Onset Date: 06/25/17 Current Visit: Yes Status: Acute Plan: Acute vs chronic due to unreliable history due to dementia. However, Pt does take BB and Eliquis -BB 50mg BID. -Cardiology consulted. Reccs appreciated -PO amniodrone -Echo with EF of 35% -Anticoagulation with Eliquis (4) CHF (congestive heart failure) Onset Date: 06/25/17 Current Visit: Yes Status: Acute Plan: H/o CHF with acute worsening -ECHO done with EF of 35% -BNP >700 -Fluids Restriction -lasix 20 daily Qualifiers: Heart failure type: unspecified Heart failure chronicity: acute on chronic Qualified Code(s): I50.9 - Heart failure, unspecified (5) COPD (chronic obstructive pulmonary disease) Onset Date: 06/25/17 Current Visit: Yes Status: Acute Plan: COPD exacerbation. -Oxygen, Steroids and Duonebs Qualifiers: COPD type: COPD with acute exacerbation Qualified Code(s): J44.1 - Chronic obstructive pulmonary disease with (acute) exacerbation (6) Dementia Onset Date: 06/25/17 Current Visit: Yes Status: Chronic Qualifiers: Dementia type: Alzheimer's disease Alzheimer's disease onset: late-onset Dementia behavioral disturbance: without behavioral disturbance Qualified Code (s): G30.1 - Alzheimer's disease with late onset; F02.80 - Dementia in other diseases classified elsewhere without behavioral disturbance (7) GERD (gastroesophageal reflux disease) Onset Date: 06/25/17 Current Visit: Yes Status: Chronic Qualifiers: Esophagitis presence: without esophagitis Qualified Code(s): K21.9 - Gastro -esophageal reflux disease without esophagitis (8) Hyperlipidemia Onset Date: 06/25/17 Current Visit: Yes Status: Chronic Qualifiers: Hyperlipidemia type: mixed hyperlipidemia Qualified Code(s): E78.2 - Mixed hyperlipidemia (9) Diabetes Onset Date: 06/25/17 Current Visit: Yes Status: Chronic Qualifiers: Diabetes mellitus type: type 2 Diabetes mellitus detention insulin use: with detention use Diabetes mellitus complication status: without complication Qualified Code(s): E11.9 - Type 2 diabetes mellitus without complications; Z79.4 - snf (current) use of insulin (10) Hypothyroidism Onset Date: 06/25/17 Current Visit: Yes Status: Chronic Qualifiers: Hypothyroidism type: acquired Qualified Code(s): E03.9 - Hypothyroidism, unspecified
[2017-06-30] MEDS: HYDROCODONE/APAP 10/325 TAB PO PRN (14:45)
[2017-06-30] MEDS: TAMSULOSIN 0.4 MG SR CAP PO SCH (21:00)
[2017-06-30] MEDS: MELATONIN 3 MG TABLET PO SCH (21:03)
[2017-07-01] MEDS: HYDROCODONE/APAP 10/325 TAB PO PRN ×3 (00:57→15:46)
[2017-07-01] MEDS: IPRATROPIUM BROM 0.5MG/2.5ML NEB SCH (01:38)
[2017-07-01] MEDS ORDERED: LORazepam 2 MG/ML VIAL IV ONE (02:09)
[2017-07-01 05:28] LABS: Albumin 3.5 g/dL (3.2-5.5); Bilirubin Total 0.7 mg/dL (0.3-1.2); Potassium 5.4 mEq/L (3.6-5.0); Protein, Total 6.6 g/dL (6.0-8.3); Uric Acid 5.4 mg/dL (2.6-8.0)
[2017-07-01 06:12] LABS: Urine Appearance CLOUDY; Urine Bilirubin NEGATIVE (NEG); Urine Blood 3+ (NEG); Urine Color YELLOW; Urine Glucose NEGATIVE (NEG); Urine Protein 1+ (NEG); Urine Specific Gravity 1.015 (1.005-1.030); Urine pH 5.5 (5.0-7.0)
[2017-07-01 06:26] LABS: Urine Bacteria LOADED /HPF (<20); Urine Culture Reflex Order REFLEXED
[2017-07-01 06:27] LABS: Urine RBC <5 /HPF (NONE SEEN)
[2017-07-01] MEDS ORDERED: ALENDRONATE 70 MG TAB PO SCH (06:30)
--- NOTE | 2017-07-01 08:02 | P.PN ---
Subjective Date of Service: 07/01/17 Primary Care Provider: None Chief Complaint: COPD Subjective: Improving (Patient is improving possible adrenal insufficiency due to low cortisol level COPD stable) Review of Systems General: Weakness Respiratory: Cough, Shortness of Breath Physical Examination - Vital Signs Temperature: 97.4 F Blood Pressure: 110/75 Pulse: 109 Respirations: 18 Pulse Ox (%): 94 - Physical Exam General: Alert, Oriented x3 HEENT: Atraumatic Neck: Supple Respiratory: Clear to auscultation bilaterally Cardiovascular: No edema, Normal pulses - Studies Medications List Reviewed: Yes Assessment & Plan - Problems (Diagnosis) (1) COPD (chronic obstructive pulmonary disease) Onset Date: 06/25/17 Current Visit: Yes Status: Acute Plan: Patient is 82 years of age stable as far as COPD is concerned Dc BiPAP continuous pulse ox continue with Hyun as outpatient and albuterol ipratropium p.r.n. possible underlying adrenal insufficiency started on prednisone reduce dose to 10 mg twice a day with the maintenance dose of 10 mg once a day Qualifiers: COPD type: COPD with acute exacerbation Qualified Code(s): J44.1 - Chronic obstructive pulmonary disease with (acute) exacerbation
[2017-07-01 08:49] LABS: UR CREAT 67.1 mg/dL
[2017-07-01] MEDS: IPRATROPIUM BROM 0.5MG/2.5ML IH PRN ×3 (08:50→23:59)
[2017-07-01] MEDS: ARFORMOTEROL TARTRATE 15 MCG/2 ML VIAL.NEB NEB SCH ×2 (08:50→19:34)
[2017-07-01] MEDS: PRIMIDONE 50 MG TAB PO SCH ×2 (09:00→22:30)
[2017-07-01] MEDS: GLUCERNA SHAKE 237 ML CAN PO SCH (09:00)
[2017-07-01] MEDS: APIXABAN 5 MG TABLET PO SCH ×2 (09:41→22:31)
[2017-07-01] MEDS: FUROSEMIDE 20 MG/ 2ML VIAL IV SCH ×2 (09:41→16:39)
[2017-07-01] MEDS: predniSONE 10 MG TAB PO SCH ×2 (09:41→22:30)
[2017-07-01] MEDS: METOPROLOL XL 50 MG TAB PO SCH ×2 (09:41→22:29)
[2017-07-01] MEDS: GABAPENTIN 300 MG CAP PO SCH ×3 (09:41→22:30)
[2017-07-01] MEDS: AMIODARONE HCL 200 MG TAB PO SCH ×2 (09:42→22:29)
[2017-07-01] MEDS: PANTOPRAZOLE 40MG TABLET PO SCH (09:42)
[2017-07-01] MEDS: LEVOTHYROXINE SOD 0.1 MG TAB PO SCH (09:42)
[2017-07-01] MEDS: DONEPEZIL HCL 5 MG TAB PO SCH ×2 (09:42→22:29)
--- NOTE | 2017-07-01 14:12 | P.PN ---
Subjective Date of Service: 07/01/17 Primary Care Provider: None Chief Complaint: COPD Patient seen and examined at bedside. Discussed with cardiology. Currently in ICU doing well overall. S/p Hypertonic saline bolus. No complains to offer. NA level low today Review of Systems General: As per HPI Physical Examination - Vital Signs Temperature: 97.4 F Blood Pressure: 110/75 Pulse: 109 Respirations: 18 Pulse Ox (%): 94 - Physical Exam General: Alert, In no apparent distress, Oriented x3 HEENT: Atraumatic, PERRLA, EOMI Neck: Supple, JVD not distended Respiratory: Clear to auscultation bilaterally, Normal air movement Cardiovascular: Regular rate/rhythm, Normal S1 S2 Gastrointestinal: Normal bowel sounds, No tenderness Musculoskeletal: No tenderness Integumentary: No rashes Neurological: Normal speech, Normal tone, Normal affect Lymphatics: No axilla or inguinal lymphadenopathy - Studies Medications List Reviewed: Yes Assessment & Plan - Problems (Diagnosis) (1) Hyponatremia Onset Date: 06/25/17 Current Visit: Yes Status: Resolved Plan: Hyponatremia with Hypercholermia -Most likely Adrenal Insuffiency. -Nephrology consulted. Appreciated reccs -S/P Hypertonic Saline bolus -Prednisone 20mg daily with tapering dose -Fludrocortisone 0.1mg daily for now -CT chest negative for any changes in the lung nodule. -Fluid restriction -Lasix 20mg Daily for now (2) Respiratory failure Onset Date: 06/25/17 Current Visit: Yes Status: Resolved Plan: Acute hypoxic Hypercapnic Respiratory Failure. Most Likely 2/2 to COPD vs CHF exacerbation -Weaned to NC now, Duonebs and Steroids -Pulmonology consulted. Reccs Appreciated -Procal negative. No need for antibiotics -CT chest negative for any changes in the lung nodule. Qualifiers: Chronicity: acute on chronic Respiratory failure complication: hypoxia and hypercapnia Qualified Code(s): J96.21 - Acute and chronic respiratory failure with hypoxia; J96.22 - Acute and chronic respiratory failure with hypercapnia (3) Atrial fibrillation with RVR Onset Date: 06/25/17 Current Visit: Yes Status: Acute Plan: Acute vs chronic due to unreliable history due to dementia. However, Pt does take BB and Eliquis -BB 50mg BID. -Cardiology consulted. Reccs appreciated -PO amniodrone -Echo with EF of 35% -Anticoagulation with Eliquis (4) CHF (congestive heart failure) Onset Date: 06/25/17 Current Visit: Yes Status: Acute Plan: H/o CHF with acute worsening -ECHO done with EF of 35% -BNP >700 -Fluids Restriction -lasix 20 daily Qualifiers: Heart failure type: unspecified Heart failure chronicity: acute on chronic Qualified Code(s): I50.9 - Heart failure, unspecified (5) COPD (chronic obstructive pulmonary disease) Onset Date: 06/25/17 Current Visit: Yes Status: Acute Plan: COPD exacerbation. -Oxygen, Steroids and Duonebs Qualifiers: COPD type: COPD with acute exacerbation Qualified Code(s): J44.1 - Chronic obstructive pulmonary disease with (acute) exacerbation (6) Dementia Onset Date: 06/25/17 Current Visit: Yes Status: Chronic Qualifiers: Dementia type: Alzheimer's disease Alzheimer's disease onset: late-onset Dementia behavioral disturbance: without behavioral disturbance Qualified Code (s): G30.1 - Alzheimer's disease with late onset; F02.80 - Dementia in other diseases classified elsewhere without behavioral disturbance (7) GERD (gastroesophageal reflux disease) Onset Date: 06/25/17 Current Visit: Yes Status: Chronic Qualifiers: Esophagitis presence: without esophagitis Qualified Code(s): K21.9 - Gastro -esophageal reflux disease without esophagitis (8) Hyperlipidemia Onset Date: 06/25/17 Current Visit: Yes Status: Chronic Qualifiers: Hyperlipidemia type: mixed hyperlipidemia Qualified Code(s): E78.2 - Mixed hyperlipidemia (9) Diabetes Onset Date: 06/25/17 Current Visit: Yes Status: Chronic Qualifiers: Diabetes mellitus type: type 2 Diabetes mellitus rn long term care insulin use: with assisted use Diabetes mellitus complication status: without complication Qualified Code(s): E11.9 - Type 2 diabetes mellitus without complications; Z79.4 - USP (current) use of insulin (10) Hypothyroidism Onset Date: 06/25/17 Current Visit: Yes Status: Chronic Qualifiers: Hypothyroidism type: acquired Qualified Code(s): E03.9 - Hypothyroidism, unspecified
[2017-07-01] MEDS: LEVALBUTEROL 0.63 MG/3 ML NEB NEB PRN ×2 (14:35→23:59)
[2017-07-01] MEDS: FLUDROCORTISONE 0.1 MG TAB PO SCH (16:40)
[2017-07-01] MEDS: SODIUM CHLORIDE 1 GM TAB PO SCH ×2 (17:45→22:31)
--- NOTE | 2017-07-01 22:15 | P.PN ---
Date of Service: 07/01/17 Vital Signs Temp Pulse Resp BP Pulse Ox 97 F 107 H 22 H 121/88 94 07/01/17 20:00 07/01/17 20:00 07/01/17 20:00 07/01/17 20:00 07/01/17 14:12 Medications Acetaminophen (Tylenol -Extra Strength) 500 mg PO Q4HP PRN PRN Reason: [id number] Stop: 07/24/17 15:18 Alendronate Sodium (Fosamax) 70 mg PO Q7D@0630 MATHEW Stop: 07/31/17 06:31 Last Admin: 07/01/17 05:56 Dose: 70 mg Amiodarone HCl (Cordarone Tab) 400 mg PO BID MATHEW Stop: 07/27/17 09:31 Last Admin: 07/01/17 09:42 Dose: 400 mg Apixaban (Eliquis) 5 mg PO BID MATHEW Stop: 07/30/17 21:01 Last Admin: 07/01/17 09:41 Dose: 5 mg Arformoterol Tartrate (Brovana) 15 mcg NEB BIDRESP MATHEW Stop: 07/25/17 08:17 Last Admin: 07/01/17 19:34 Dose: 15 mcg Artificial Tears (Liquiflim Tears 1.4% Ophth Yeny) 1 - 2 drops OPTH QIDP PRN PRN Reason: DRY EYES Stop: 07/25/17 15:15 Last Admin: 06/25/17 15:18 Dose: 2 drops Donepezil HCl (Aricept) 10 mg PO BID MATHEW Stop: 07/25/17 21:01 Last Admin: 07/01/17 09:42 Dose: 10 mg Enteral Nutritional Formula (Glucerna Shake) 237 ml PO DAILY MATHEW Stop: 07/28/17 09:01 Last Admin: 07/01/17 09:00 Dose: 237 ml Fludrocortisone Acetate (Florinef) 0.1 mg PO DAILY MATHEW Stop: 08/01/17 09:01 Last Admin: 07/01/17 16:40 Dose: 0.1 mg Furosemide (Lasix) 20 mg IV BIDL MATHEW Stop: 07/31/17 17:01 Last Admin: 07/01/17 16:39 Dose: 20 mg Gabapentin (Neurontin) 600 mg PO TID MATHEW Stop: 07/24/17 23:51 Last Admin: 07/01/17 15:46 Dose: 600 mg Ipratropium [place] (Atrovent Neb) 0.5 mg IH Q6HP PRN PRN Reason: COUGH Stop: 07/25/17 07:51 Last Admin: 07/01/17 14:35 Dose: 0.5 mg Levalbuterol HCl (Xopenex) 0.63 mg NEB Q6HP PRN PRN Reason: SHORTNESS OF BREATH Stop: 07/26/17 08:11 Last Admin: 07/01/17 14:35 Dose: 0.63 mg Levothyroxine Sodium (Synthroid) 0.1 mg PO DAILY MATHEW Stop: 07/25/17 09:01 Last Admin: 07/01/17 09:42 Dose: 0.1 mg Lorazepam (Ativan) 0.5 mg PO BEDTIME PRN PRN Reason: ANXIETY Stop: 07/26/17 21:01 Last Admin: 06/30/17 21:00 Dose: 0.5 mg Melatonin (Melatonin) 6 mg PO BEDTIME MATHEW Stop: 07/25/17 21:01 Last Admin: 06/30/17 21:03 Dose: 6 mg Metoprolol Succinate (Toprol Xl) 50 mg PO BID MATHEW Stop: 07/26/17 21:01 Last Admin: 07/01/17 09:41 Dose: 50 mg Pantoprazole Sodium (Protonix Tab) 40 mg PO DAILY MATHEW Stop: 07/25/17 09:01 Last Admin: 07/01/17 09:42 Dose: 40 mg Polyethylene Glycol (Glycolax) 17 gm PO DAILY PRN PRN Reason: CONSTIPATION Last Admin: 06/30/17 10:08 Dose: 17 gm Prednisone (Deltasone) 10 mg PO BID MATHEW Stop: 07/31/17 09:01 Last Admin: 07/01/17 09:41 Dose: 10 mg Primidone (Mysoline) 50 mg PO BID MATHEW Stop: 07/24/17 21:01 Last Admin: 07/01/17 09:00 Dose: 50 mg Simethicone (Mylicon Tab) 160 mg PO Q6HP PRN PRN Reason: heartburn Stop: 07/24/17 19:24 Sodium Chloride (Normal Saline Flush) 10 ml IV BID MATHEW Stop: 07/24/17 21:01 Last Admin: 05/14/18 09:42 Dose: 10 ml Sodium Chloride (Nacl Tabs) 1 gm PO QID AMTHEW Stop: 07/31/17 17:01 Last Admin: 07/01/17 17:45 Dose: 1 gm Tamsulosin HCl (Flomax) 0.4 mg PO BEDTIME [facility] Stop: 07/24/17 21:01 Last Admin: 06/30/17 21:00 Dose: 0.4 mg Assessment/ Plan: Nephrology. CPS stable without CP or SOB. No acute events overnight. Malaise. Weakness. Vitals, medications, blood work and imaging reviewed in the chart. NAD. MMM. Neck supple. Decreased bases. RRR. Soft Abd. No C/C. Hip edema. No rash. AAO. Normal speech. Na 126 A/ Hyponatremia suspicious for SIADH versus Adrenal insufficiency. Hyperkalemia. HTN. Edema. CKD III. Alkalosis. Hypocalcemia. Acute cystitis. P/ Continue current POC and Medications. Increase Lasix BID. Start NaCl QID. Fluid restriction. AM labs. Daily weight. No NSAIDs.
[2017-07-01] MEDS: MELATONIN 3 MG TABLET PO SCH (22:27)
[2017-07-01] MEDS: TAMSULOSIN 0.4 MG SR CAP PO SCH (22:28)
[2017-07-02] MEDS: LORAZEPAM 0.5 MG TABLET PO PRN (00:43)
[2017-07-02] MEDS: ARFORMOTEROL TARTRATE 15 MCG/2 ML VIAL.NEB NEB SCH ×2 (07:55→20:16)
[2017-07-02] MEDS: GLUCERNA SHAKE 237 ML CAN PO SCH (09:00)
[2017-07-02] MEDS: METOPROLOL XL 50 MG TAB PO SCH ×2 (10:20→21:18)
[2017-07-02] MEDS: DONEPEZIL HCL 5 MG TAB PO SCH ×2 (10:20→21:19)
[2017-07-02] MEDS: FUROSEMIDE 20 MG/ 2ML VIAL IV SCH ×2 (10:20→17:18)
[2017-07-02] MEDS: LEVOTHYROXINE SOD 0.1 MG TAB PO SCH (10:20)
[2017-07-02] MEDS: GABAPENTIN 300 MG CAP PO SCH ×3 (10:20→21:18)
[2017-07-02] MEDS: APIXABAN 5 MG TABLET PO SCH ×2 (10:20→21:17)
[2017-07-02] MEDS: PRIMIDONE 50 MG TAB PO SCH ×2 (10:21→21:28)
[2017-07-02] MEDS: SODIUM CHLORIDE 1 GM TAB PO SCH ×4 (10:21→21:16)
[2017-07-02] MEDS: AMIODARONE HCL 200 MG TAB PO SCH ×2 (10:21→21:17)
[2017-07-02] MEDS: predniSONE 10 MG TAB PO SCH ×2 (10:21→21:19)
[2017-07-02] MEDS: PANTOPRAZOLE 40MG TABLET PO SCH (10:21)
[2017-07-02] MEDS: HYDROCODONE/APAP 10/325 TAB PO PRN ×2 (11:19→17:27)
[2017-07-02 12:44] LABS: Potassium 5.3 mEq/L (3.6-5.0)
--- NOTE | 2017-07-02 13:17 | P.PN ---
Subjective Date of Service: 07/02/17 Primary Care Provider: None Chief Complaint: COPD Patient seen and examined at bedside. Discussed with cardiology. Currently in ICU doing well overall. S/p Hypertonic saline bolus. No complains to offer. NA level low today Review of Systems General: As per HPI Physical Examination - Vital Signs Temperature: 98.2 F Blood Pressure: 101/79 Pulse: 98 Respirations: 20 Pulse Ox (%): 94 - Physical Exam General: Alert, In no apparent distress, Oriented x2 HEENT: Atraumatic Neck: Supple, JVD distended Respiratory: Normal air movement, Crackles/rales Cardiovascular: Regular rate/rhythm, Normal S1 S2 Gastrointestinal: Normal bowel sounds, Soft and benign, Non-distended, No tenderness Musculoskeletal: No tenderness Integumentary: No rashes Neurological: Normal speech, Normal tone, Normal affect Lymphatics: No axilla or inguinal lymphadenopathy - Studies Medications List Reviewed: Yes Assessment & Plan - Problems (Diagnosis) (1) Hyponatremia Onset Date: 06/25/17 Current Visit: Yes Status: Resolved Plan: Hyponatremia with Hypercholermia -Most likely Adrenal Insuffiency. -Nephrology consulted. Appreciated reccs -S/P Hypertonic Saline bolus -Prednisone 20mg daily with tapering dose -Fludrocortisone 0.1mg daily for now -NACL tab daily -Lasix Increase to BID now -CT chest negative for any changes in the lung nodule. -Fluid restriction (2) Respiratory failure Onset Date: 06/25/17 Current Visit: Yes Status: Resolved Plan: Acute hypoxic Hypercapnic Respiratory Failure. Most Likely 2/2 to COPD vs CHF exacerbation -Weaned to NC now, Duonebs and Steroids -Pulmonology consulted. Reccs Appreciated -Procal negative. No need for antibiotics -CT chest negative for any changes in the lung nodule. Qualifiers: Chronicity: acute on chronic Respiratory failure complication: hypoxia and hypercapnia Qualified Code(s): J96.21 - Acute and chronic respiratory failure with hypoxia; J96.22 - Acute and chronic respiratory failure with hypercapnia (3) Atrial fibrillation with RVR Onset Date: 06/25/17 Current Visit: Yes Status: Acute Plan: Acute vs chronic due to unreliable history due to dementia. However, Pt does take BB and Eliquis -BB 50mg BID. -Cardiology consulted. Reccs appreciated -PO amniodrone -Echo with EF of 35% -Anticoagulation with Eliquis (4) CHF (congestive heart failure) Onset Date: 06/25/17 Current Visit: Yes Status: Acute Plan: H/o CHF with acute worsening -ECHO done with EF of 35% -BNP >700 -Fluids Restriction -lasix 20 daily Qualifiers: Heart failure type: unspecified Heart failure chronicity: acute on chronic Qualified Code(s): I50.9 - Heart failure, unspecified (5) COPD (chronic obstructive pulmonary disease) Onset Date: 06/25/17 Current Visit: Yes Status: Acute Plan: COPD exacerbation. -Oxygen, Steroids and Duonebs Qualifiers: COPD type: COPD with acute exacerbation Qualified Code(s): J44.1 - Chronic obstructive pulmonary disease with (acute) exacerbation (6) Dementia Onset Date: 06/25/17 Current Visit: Yes Status: Chronic Qualifiers: Dementia type: Alzheimer's disease Alzheimer's disease onset: late-onset Dementia behavioral disturbance: without behavioral disturbance Qualified Code (s): G30.1 - Alzheimer's disease with late onset; F02.80 - Dementia in other diseases classified elsewhere without behavioral disturbance (7) GERD (gastroesophageal reflux disease) Onset Date: 06/25/17 Current Visit: Yes Status: Chronic Qualifiers: Esophagitis presence: without esophagitis Qualified Code(s): K21.9 - Gastro -esophageal reflux disease without esophagitis (8) Hyperlipidemia Onset Date: 06/25/17 Current Visit: Yes Status: Chronic Qualifiers: Hyperlipidemia type: mixed hyperlipidemia Qualified Code(s): E78.2 - Mixed hyperlipidemia (9) Diabetes Onset Date: 06/25/17 Current Visit: Yes Status: Chronic Qualifiers: Diabetes mellitus type: type 2 Diabetes mellitus skilled nursing insulin use: with skilled nursing use Diabetes mellitus complication status: without complication Qualified Code(s): E11.9 - Type 2 diabetes mellitus without complications; Z79.4 - watermaster (current) use of insulin (10) Hypothyroidism Onset Date: 06/25/17 Current Visit: Yes Status: Chronic Qualifiers: Hypothyroidism type: acquired Qualified Code(s): E03.9 - Hypothyroidism, unspecified
[2017-07-02] MEDS: FLUDROCORTISONE 0.1 MG TAB PO SCH (14:55)
[2017-07-02] MEDS: LEVALBUTEROL 0.63 MG/3 ML NEB NEB PRN (15:41)
[2017-07-02] MEDS: IPRATROPIUM BROM 0.5MG/2.5ML IH PRN (15:41)
[2017-07-02] MEDS: MELATONIN 3 MG TABLET PO SCH (21:17)
[2017-07-02] MEDS: TAMSULOSIN 0.4 MG SR CAP PO SCH (21:19)
[2017-07-03] MEDS: HYDROCODONE/APAP 10/325 TAB PO PRN (00:26)
[2017-07-03 05:02] LABS: Absolute Lymphocytes (CBC) 0.5 K/uL (0.7-4.9); Absolute Neutrophil 10.3 K/uL (1.8-8.0); Basophils % 0.4 % (0-1.3); Eosinophils % 0.1 % (0-4.4); Hematocrit 37.4 % (36.0-45.0); Lymphocytes % 4.1 % (15.3-44.8); MCH 31.7 pg (27.0-35.0); MCV 98.2 fL (80-100); MPV 9.6 fL (7.6-11.3); Monocytes % 8.4 % (3.3-12.3)
[2017-07-03 05:07] LABS: Potassium 5.3 mEq/L (3.6-5.0)
[2017-07-03] MEDS: IPRATROPIUM BROM 0.5MG/2.5ML IH PRN ×3 (05:16→20:02)
[2017-07-03] MEDS: LEVALBUTEROL 0.63 MG/3 ML NEB NEB PRN ×3 (05:16→20:02)
[2017-07-03 05:28] LABS: Blood Morphology Comment NOT SEEN (NOT SEEN); Platelet Estimate ADEQ; Urine White Blood Cell Casts OK
[2017-07-03] MEDS: ARFORMOTEROL TARTRATE 15 MCG/2 ML VIAL.NEB NEB SCH ×2 (08:08→20:00)
[2017-07-03] MEDS ORDERED: SOD POLYSTYREN SUL 15 GM/60 ML UCUP PO ONE (08:54)
[2017-07-03] MEDS: APIXABAN 5 MG TABLET PO SCH ×2 (09:33→21:32)
[2017-07-03] MEDS: PANTOPRAZOLE 40MG TABLET PO SCH (09:33)
[2017-07-03] MEDS: LEVOTHYROXINE SOD 0.1 MG TAB PO SCH (09:33)
[2017-07-03] MEDS: predniSONE 10 MG TAB PO SCH ×2 (09:33→21:32)
[2017-07-03] MEDS: GABAPENTIN 300 MG CAP PO SCH ×3 (09:33→21:31)
[2017-07-03] MEDS: METOPROLOL XL 50 MG TAB PO SCH ×2 (09:34→21:31)
[2017-07-03] MEDS: DONEPEZIL HCL 5 MG TAB PO SCH ×2 (09:34→21:31)
[2017-07-03] MEDS: AMIODARONE HCL 200 MG TAB PO SCH ×2 (09:35→21:31)
[2017-07-03] MEDS: FUROSEMIDE 20 MG/ 2ML VIAL IV SCH ×2 (09:36→17:47)
[2017-07-03] MEDS: CEFTRIAXONE/SWI 1gm 1 GM/10 ML SYR IV SCH (09:37)
[2017-07-03] MEDS: PRIMIDONE 50 MG TAB PO SCH ×2 (09:55→21:30)
[2017-07-03] MEDS: GLUCERNA SHAKE 237 ML CAN PO SCH (09:55)
[2017-07-03] MEDS: SODIUM CHLORIDE 1 GM TAB PO SCH ×4 (09:55→21:31)
--- NOTE | 2017-07-03 12:01 | P.PN ---
Subjective Date of Service: 07/03/17 Primary Care Provider: None Chief Complaint: COPD Patient seen and examined at bedside. Discussed with cardiology and nephrology. Doing well overall. lab work with Hyponatremia still and now UA with ESBL Review of Systems General: As per HPI Physical Examination - Vital Signs Temperature: 97.6 F Blood Pressure: 109/86 Pulse: 100 Respirations: 20 Pulse Ox (%): 94 - Physical Exam General: Alert, In no apparent distress HEENT: Atraumatic, PERRLA, EOMI Neck: Supple, JVD not distended Respiratory: Normal air movement, Crackles/rales Cardiovascular: Regular rate/rhythm, Normal S1 S2 Gastrointestinal: Normal bowel sounds, No tenderness Musculoskeletal: No tenderness Integumentary: No rashes Neurological: Normal speech, Normal tone, Normal affect Lymphatics: No axilla or inguinal lymphadenopathy - Studies Medications List Reviewed: Yes Assessment & Plan - Problems (Diagnosis) (1) Hyponatremia Onset Date: 06/25/17 Current Visit: Yes Status: Resolved Plan: Hyponatremia with Hypercholermia. NA at 128 today -Most likely Adrenal Insuffiency. -Nephrology consulted. Appreciated reccs -S/P Hypertonic Saline bolus -Prednisone 20mg daily with tapering dose -Fludrocortisone 0.1mg daily for now -NACL tab daily -Lasix Increase to BID now -CT chest negative for any changes in the lung nodule. -Fluid restriction (2) UTI (urinary tract infection) Current Visit: Yes Status: Acute Plan: UTI with ESBL -IV meropenum started 03/03 -PICC line ordered -Will need for 14 days Qualifiers: Urinary tract infection type: acute cystitis Hematuria presence: without hematuria Qualified Code(s): N30.00 - Acute cystitis without hematuria (3) Respiratory failure Onset Date: 06/25/17 Current Visit: Yes Status: Resolved Plan: Acute hypoxic Hypercapnic Respiratory Failure. Most Likely 2/2 to COPD vs CHF exacerbation -Weaned to NC now, Duonebs and Steroids -Pulmonology consulted. Reccs Appreciated -Procal negative. No need for antibiotics -CT chest negative for any changes in the lung nodule. Qualifiers: Chronicity: acute on chronic Respiratory failure complication: hypoxia and hypercapnia Qualified Code(s): J96.21 - Acute and chronic respiratory failure with hypoxia; J96.22 - Acute and chronic respiratory failure with hypercapnia (4) Atrial fibrillation with RVR Onset Date: 06/25/17 Current Visit: Yes Status: Acute Plan: Acute vs chronic due to unreliable history due to dementia. However, Pt does take BB and Eliquis -BB 50mg BID. -Cardiology consulted. Reccs appreciated -PO amniodrone -Echo with EF of 35% -Anticoagulation with Eliquis (5) CHF (congestive heart failure) Onset Date: 06/25/17 Current Visit: Yes Status: Acute Plan: H/o CHF with acute worsening -ECHO done with EF of 35% -BNP >700 -Fluids Restriction -lasix 20 BID Qualifiers: Heart failure type: unspecified Heart failure chronicity: acute on chronic Qualified Code(s): I50.9 - Heart failure, unspecified (6) COPD (chronic obstructive pulmonary disease) Onset Date: 06/25/17 Current Visit: Yes Status: Acute Plan: COPD exacerbation. -Oxygen, Steroids and Duonebs Qualifiers: COPD type: COPD with acute exacerbation Qualified Code(s): J44.1 - Chronic obstructive pulmonary disease with (acute) exacerbation (7) Dementia Onset Date: 06/25/17 Current Visit: Yes Status: Chronic Qualifiers: Dementia type: Alzheimer's disease Alzheimer's disease onset: late-onset Dementia behavioral disturbance: without behavioral disturbance Qualified Code (s): G30.1 - Alzheimer's disease with late onset; F02.80 - Dementia in other diseases classified elsewhere without behavioral disturbance (8) GERD (gastroesophageal reflux disease) Onset Date: 06/25/17 Current Visit: Yes Status: Chronic Qualifiers: Esophagitis presence: without esophagitis Qualified Code(s): K21.9 - Gastro -esophageal reflux disease without esophagitis (9) Hyperlipidemia Onset Date: 06/25/17 Current Visit: Yes Status: Chronic Qualifiers: Hyperlipidemia type: mixed hyperlipidemia Qualified Code(s): E78.2 - Mixed hyperlipidemia (10) Diabetes Onset Date: 06/25/17 Current Visit: Yes Status: Chronic Qualifiers: Diabetes mellitus type: type 2 Diabetes mellitus long-term insulin use: with terminal superintendent use Diabetes mellitus complication status: without complication Qualified Code(s): E11.9 - Type 2 diabetes mellitus without complications; Z79.4 - shelter (current) use of insulin (11) Hypothyroidism Onset Date: 06/25/17 Current Visit: Yes Status: Chronic Qualifiers: Hypothyroidism type: acquired Qualified Code(s): E03.9 - Hypothyroidism, unspecified
[2017-07-03] MEDS: FLUDROCORTISONE 0.1 MG TAB PO SCH (15:34)
--- NOTE | 2017-07-03 20:11 | P.PN ---
Date of Service: 07/02/17 Vital Signs Temp Pulse Resp BP Pulse Ox 97.6 F 100 H 20 109/86 94 07/03/17 16:00 07/03/17 17:47 07/03/17 16:00 07/03/17 17:47 07/03/17 12:01 Medications Acetaminophen (Tylenol -Extra Strength) 500 mg PO Q4HP PRN PRN Reason: [id number] Stop: 07/24/17 15:18 Hydrocodone Bitart/Acetaminophen ([place] 10/325) 1 tab PO Q6H PRN PRN Reason: PAIN MILD TO MODERATE Stop: 08/01/17 10:54 Last Admin: 07/03/17 00:26 Dose: 1 tab Alendronate Sodium (Fosamax) 70 mg PO Q7D@0630 MATHEW Stop: 07/31/17 06:31 Last Admin: 07/01/17 05:56 Dose: 70 mg Amiodarone HCl (Cordarone Tab) 400 mg PO BID MATHEW Stop: 07/27/17 09:31 Last Admin: 07/03/17 09:35 Dose: 400 mg Apixaban (Eliquis) 5 mg PO BID MATHEW Stop: 07/30/17 21:01 Last Admin: 07/03/17 09:33 Dose: 5 mg Arformoterol Tartrate (Brovana) 15 mcg NEB BIDRESP MATHEW Stop: 07/25/17 08:17 Last Admin: 07/03/17 20:00 Dose: 15 mcg Artificial Tears (Liquiflim Tears 1.4% Ophth Yeny) 1 - 2 drops OPTH QIDP PRN PRN Reason: DRY EYES Stop: 07/25/17 15:15 Last Admin: 06/25/17 15:18 Dose: 2 drops Donepezil HCl (Aricept) 10 mg PO BID MATHEW Stop: 07/25/17 21:01 Last Admin: 07/03/17 09:34 Dose: 10 mg Enteral Nutritional Formula (Glucerna Shake) 237 ml PO DAILY MATHEW Stop: 07/28/17 09:01 Last Admin: 07/03/17 09:55 Dose: 237 ml Fludrocortisone Acetate (Florinef) 0.1 mg PO DAILY MATHEW Stop: 08/01/17 09:01 Last Admin: 07/03/17 15:34 Dose: 0.1 mg Furosemide (Lasix) 20 mg IV BIDL MATHEW Stop: 07/31/17 17:01 Last Admin: 07/03/17 17:47 Dose: 20 mg Gabapentin (Neurontin) 600 mg PO TID MATHEW Stop: 07/24/17 23:51 Last Admin: 07/03/17 15:34 Dose: 600 mg Ceftriaxone Sodium/Sodium Chloride (Rocephin 1 Gm/10 Ml Swi Ivp) 1 gm in 10 mls @ 600 mls/hr IV DAILY MATHEW Stop: 08/02/17 09:01 Last Admin: 07/03/17 09:37 Dose: 10 mls Ipratropium [place] (Atrovent Neb) 0.5 mg IH Q6HP PRN PRN Reason: COUGH Stop: 07/25/17 07:51 Last Admin: 07/03/17 20:02 Dose: 0.5 mg Levalbuterol HCl (Xopenex) 0.63 mg NEB Q6HP PRN PRN Reason: SHORTNESS OF BREATH Stop: 07/26/17 08:11 Last Admin: 07/03/17 20:02 Dose: 0.63 mg Levothyroxine Sodium (Synthroid) 0.1 mg PO DAILY MATHEW Stop: 07/25/17 09:01 Last Admin: 07/03/17 09:33 Dose: 0.1 mg Melatonin (Melatonin) 6 mg PO BEDTIME MATHEW Stop: 07/25/17 21:01 Last Admin: 07/02/17 21:17 Dose: 6 mg Metoprolol Succinate (Toprol Xl) 50 mg PO BID MATHEW Stop: 07/26/17 21:01 Last Admin: 07/03/17 09:34 Dose: 50 mg Pantoprazole Sodium (Protonix Tab) 40 mg PO DAILY MATHEW Stop: 07/25/17 09:01 Last Admin: 07/03/17 09:33 Dose: 40 mg Polyethylene Glycol (Glycolax) 17 gm PO DAILY PRN PRN Reason: CONSTIPATION Last Admin: 06/30/17 10:08 Dose: 17 gm Prednisone (Deltasone) 10 mg PO BID MATHEW Stop: 07/31/17 09:01 Last Admin: 07/03/17 09:33 Dose: 10 mg Primidone (Mysoline) 50 mg PO BID MATHEW Stop: 07/24/17 21:01 Last Admin: 07/03/17 09:55 Dose: 50 mg Simethicone (Mylicon Tab) 160 mg PO Q6HP PRN PRN Reason: heartburn Stop: 07/24/17 19:24 Sodium Chloride (Normal Saline Flush) 10 ml IV BID [facility] Stop: 07/24/17 21:01 Last Admin: 07/03/17 09:37 Dose: 10 ml Sodium Chloride (Nacl Tabs) 1 gm PO QID [facility] Stop: 07/31/17 17:01 Last Admin: 07/03/17 17:47 Dose: 1 gm Tamsulosin HCl (Flomax) 0.4 mg PO BEDTIME [facility] Stop: 07/24/17 21:01 Last Admin: 07/02/17 21:19 Dose: 0.4 mg Assessment/ Plan: Nephrology. CPS stable without CP or SOB. No acute events overnight. Malaise. Weakness. Anorexia. Vitals, medications, blood work and imaging reviewed in the chart. NAD. MMM. Neck supple. Decreased bases. RRR. Soft Abd. No C/C. Hip edema. No rash. AAO. Normal speech. Na 126 A/ Hyponatremia suspicious for SIADH versus Adrenal insufficiency. Hyperkalemia. HTN. Edema. CKD III. Alkalosis. Hypocalcemia. Acute cystitis. P/ Continue current POC and Medications. Continue Lasix and NaCl. Start Vitamin D. Fluid restriction. Agree with abx. AM labs. Daily weight. No NSAIDs.
--- NOTE | 2017-07-03 20:20 | P.PN ---
Date of Service: 07/03/17 Vital Signs Temp Pulse Resp BP Pulse Ox 97.6 F 100 H 20 109/86 94 07/03/17 16:00 07/03/17 17:47 07/03/17 16:00 07/03/17 17:47 07/03/17 12:01 Medications Acetaminophen (Tylenol -Extra Strength) 500 mg PO Q4HP PRN PRN Reason: [id number] Stop: 07/24/17 15:18 Hydrocodone Bitart/Acetaminophen ([place] 10/325) 1 tab PO Q6H PRN PRN Reason: PAIN MILD TO MODERATE Stop: 08/01/17 10:54 Last Admin: 07/03/17 00:26 Dose: 1 tab Alendronate Sodium (Fosamax) 70 mg PO Q7D@0630 MATHEW Stop: 07/31/17 06:31 Last Admin: 07/01/17 05:56 Dose: 70 mg Amiodarone HCl (Cordarone Tab) 400 mg PO BID MATHEW Stop: 07/27/17 09:31 Last Admin: 07/03/17 09:35 Dose: 400 mg Apixaban (Eliquis) 5 mg PO BID MATHEW Stop: 07/30/17 21:01 Last Admin: 07/03/17 09:33 Dose: 5 mg Arformoterol Tartrate (Brovana) 15 mcg NEB BIDRESP MATHEW Stop: 07/25/17 08:17 Last Admin: 07/03/17 20:00 Dose: 15 mcg Artificial Tears (Liquiflim Tears 1.4% Ophth Yeny) 1 - 2 drops OPTH QIDP PRN PRN Reason: DRY EYES Stop: 07/25/17 15:15 Last Admin: 06/25/17 15:18 Dose: 2 drops Calcitriol (Rocaltrol) 0.5 mcg PO DAILY MATHEW Stop: 08/03/17 09:01 Cholecalciferol (Vitamin D 5,000 Iu Cap) 5,000 unit PO DAILY MATHEW Stop: 08/03/17 09:01 Donepezil HCl (Aricept) 10 mg PO BID MATHEW Stop: 07/25/17 21:01 Last Admin: 07/03/17 09:34 Dose: 10 mg Enteral Nutritional Formula (Glucerna Shake) 237 ml PO DAILY MATHEW Stop: 07/28/17 09:01 Last Admin: 07/03/17 09:55 Dose: 237 ml Fludrocortisone Acetate (Florinef) 0.1 mg PO DAILY MATHEW Stop: 08/01/17 09:01 Last Admin: 07/03/17 15:34 Dose: 0.1 mg Furosemide (Lasix) 20 mg IV BIDL MATHEW Stop: 07/31/17 17:01 Last Admin: 07/03/17 17:47 Dose: 20 mg Gabapentin (Neurontin) 600 mg PO TID MATHEW Stop: 07/24/17 23:51 Last Admin: 07/03/17 15:34 Dose: 600 mg Ceftriaxone Sodium/Sodium Chloride (Rocephin 1 Gm/10 Ml Swi Ivp) 1 gm in 10 mls @ 600 mls/hr IV DAILY MATHEW Stop: 08/02/17 09:01 Last Admin: 07/03/17 09:37 Dose: 10 mls Ipratropium [place] (Atrovent Neb) 0.5 mg IH Q6HP PRN PRN Reason: COUGH Stop: 07/25/17 07:51 Last Admin: 07/03/17 20:02 Dose: 0.5 mg Levalbuterol HCl (Xopenex) 0.63 mg NEB Q6HP PRN PRN Reason: SHORTNESS OF BREATH Stop: 07/26/17 08:11 Last Admin: 07/03/17 20:02 Dose: 0.63 mg Levothyroxine Sodium (Synthroid) 0.1 mg PO DAILY MATHEW Stop: 07/25/17 09:01 Last Admin: 07/03/17 09:33 Dose: 0.1 mg Melatonin (Melatonin) 6 mg PO BEDTIME MATHEW Stop: 07/25/17 21:01 Last Admin: 07/02/17 21:17 Dose: 6 mg Metoprolol Succinate (Toprol Xl) 50 mg PO BID MATHEW Stop: 07/26/17 21:01 Last Admin: 07/03/17 09:34 Dose: 50 mg Pantoprazole Sodium (Protonix Tab) 40 mg PO DAILY MATHEW Stop: 07/25/17 09:01 Last Admin: 07/03/17 09:33 Dose: 40 mg Polyethylene Glycol (Glycolax) 17 gm PO DAILY PRN PRN Reason: CONSTIPATION Last Admin: 06/30/17 10:08 Dose: 17 gm Prednisone (Deltasone) 10 mg PO BID MATHEW Stop: 07/31/17 09:01 Last Admin: 07/03/17 09:33 Dose: 10 mg Primidone (Mysoline) 50 mg PO BID MATHEW Stop: 07/24/17 21:01 Last Admin: 07/03/17 09:55 Dose: 50 mg Simethicone (Mylicon Tab) 160 mg PO Q6HP PRN PRN Reason: heartburn Stop: 07/24/17 19:24 Sodium Chloride (Normal Saline Flush) 10 ml IV BID MATHEW Stop: 07/24/17 21:01 Last Admin: 07/03/17 09:37 Dose: 10 ml Sodium Chloride (Nacl Tabs) 1 gm PO QID MATHEW Stop: 07/31/17 17:01 Last Admin: 07/03/17 17:47 Dose: 1 gm Tamsulosin HCl (Flomax) 0.4 mg PO BEDTIME MATHEW Stop: 07/24/17 21:01 Last Admin: 07/02/17 21:19 Dose: 0.4 mg Assessment/ Plan: Nephrology. CPS stable without CP or SOB. No acute events overnight. Malaise. Weakness. Anorexia. Vitals, medications, blood work and imaging reviewed in the chart. NAD. MMM. Neck supple. Decreased bases. RRR. Soft Abd. No C/C. Hip edema. No rash. AAO. Normal speech. Na 126 A/ Hyponatremia suspicious for SIADH versus Adrenal insufficiency. Hyperkalemia. HTN. Edema. CKD III. Alkalosis. Hypocalcemia. Acute cystitis. Enterobacter cloace P/ Continue current POC and Medications. Continue Lasix and NaCl. Fluid restriction. Agree with kayexalate. Agree with abx. AM labs. Daily weight. No NSAIDs.
[2017-07-03] MEDS: TAMSULOSIN 0.4 MG SR CAP PO SCH (21:30)
[2017-07-03] MEDS: MELATONIN 3 MG TABLET PO SCH (21:31)
[2017-07-04] MEDS: POLYVINYL ALCOHOL 1.4% 15 ML OPTH PRN (03:40)
[2017-07-04] MEDS: LEVALBUTEROL 0.63 MG/3 ML NEB NEB PRN (03:53)
[2017-07-04] MEDS: IPRATROPIUM BROM 0.5MG/2.5ML IH PRN (03:54)
[2017-07-04 05:51] LABS: Absolute Lymphocytes (CBC) 0.3 K/uL (0.7-4.9); Absolute Monocytes 0.3 K/uL (0.1-1.3); Absolute Neutrophil 4.9 K/uL (1.8-8.0); Eosinophils % 0.3 % (0-4.4); Hematocrit 32.8 % (36.0-45.0); Lymphocytes % 5.5 % (15.3-44.8); MCH 32.7 pg (27.0-35.0); MCV 96.9 fL (80-100); MPV 9.1 fL (7.6-11.3); RBC Red Blood Cell Count 3.39 M/uL (3.86-4.86)
[2017-07-04 06:02] LABS: Albumin 3.3 g/dL (3.2-5.5); Bilirubin Total 0.7 mg/dL (0.3-1.2); Magnesium 1.8 mg/dL (1.8-2.5); Phosphorus 3.4 mg/dL (2.5-4.3); Protein, Total 6.3 g/dL (6.0-8.3); Uric Acid 5.6 mg/dL (2.6-8.0)
[2017-07-04] MEDS ORDERED: MAGNESIUM SULFATE 1 gm IVPB 1 GM/100 ML BAG IV ONE (07:10)
[2017-07-04] MEDS: ARFORMOTEROL TARTRATE 15 MCG/2 ML VIAL.NEB NEB SCH (08:10)
[2017-07-04 08:26] LABS: Platelet Estimate ADEQ; Urine White Blood Cell Casts OK
[2017-07-04 08:27] LABS: Blood Morphology Comment NOT SEEN (NOT SEEN)
[2017-07-04] MEDS ORDERED: VITAMIN D 5,000 UNIT CAP PO SCH (09:00)
[2017-07-04] MEDS ORDERED: CALCITROL 0.25 MCG CAP PO SCH (09:00)
[2017-07-04] MEDS: FUROSEMIDE 20 MG/ 2ML VIAL IV SCH (11:31)
[2017-07-04] MEDS: DONEPEZIL HCL 5 MG TAB PO SCH (11:35)
[2017-07-04] MEDS: SODIUM CHLORIDE 1 GM TAB PO SCH ×2 (11:35→15:59)
[2017-07-04] MEDS: GABAPENTIN 300 MG CAP PO SCH ×2 (11:35→15:59)
[2017-07-04] MEDS: AMIODARONE HCL 200 MG TAB PO SCH (11:36)
[2017-07-04] MEDS: LEVOTHYROXINE SOD 0.1 MG TAB PO SCH (11:36)
[2017-07-04] MEDS: METOPROLOL XL 50 MG TAB PO SCH (11:36)
[2017-07-04] MEDS: HYDROCODONE/APAP 10/325 TAB PO PRN (11:37)
[2017-07-04] MEDS: predniSONE 10 MG TAB PO SCH (11:37)
[2017-07-04] MEDS: PANTOPRAZOLE 40MG TABLET PO SCH (11:37)
[2017-07-04] MEDS: GLUCERNA SHAKE 237 ML CAN PO SCH (11:41)
[2017-07-04] MEDS: APIXABAN 5 MG TABLET PO SCH (11:55)
[2017-07-04] MEDS: CEFTRIAXONE/SWI 1gm 1 GM/10 ML SYR IV SCH (11:57)
--- NOTE | 2017-07-04 12:50 | P.PN ---
Date of Service: 07/04/17 Vital Signs Temp Pulse Resp BP Pulse Ox 97.6 F 89 16 117/70 94 07/04/17 11:20 07/04/17 11:36 07/04/17 11:20 07/04/17 11:36 07/03/17 12:01 Medications Acetaminophen (Tylenol -Extra Strength) 500 mg PO Q4HP PRN PRN Reason: [id number] Stop: 07/24/17 15:18 Hydrocodone Bitart/Acetaminophen ([place] 10/325) 1 tab PO Q6H PRN PRN Reason: PAIN MILD TO MODERATE Stop: 08/01/17 10:54 Last Admin: 07/04/17 11:37 Dose: 1 tab Alendronate Sodium (Fosamax) 70 mg PO Q7D@0630 MATHEW Stop: 07/31/17 06:31 Last Admin: 07/01/17 05:56 Dose: 70 mg Amiodarone HCl (Cordarone Tab) 400 mg PO BID MATHEW Stop: 07/27/17 09:31 Last Admin: 07/04/17 11:36 Dose: 400 mg Apixaban (Eliquis) 5 mg PO BID MATHEW Stop: 07/30/17 21:01 Last Admin: 07/04/17 11:55 Dose: 5 mg Arformoterol Tartrate (Brovana) 15 mcg NEB BIDRESP MATHEW Stop: 07/25/17 08:17 Last Admin: 07/04/17 08:10 Dose: 15 mcg Artificial Tears (Liquiflim Tears 1.4% Ophth Yeny) 1 - 2 drops OPTH QIDP PRN PRN Reason: DRY EYES Stop: 07/25/17 15:15 Last Admin: 07/04/17 03:40 Dose: 1 drops Calcitriol (Rocaltrol) 0.5 mcg PO DAILY MATEHW Stop: 08/03/17 09:01 Last Admin: 07/04/17 11:34 Dose: 0.5 mcg Cholecalciferol (Vitamin D 5,000 Iu Cap) 5,000 unit PO DAILY MATHEW Stop: 08/03/17 09:01 Last Admin: 07/04/17 11:35 Dose: 5,000 unit Donepezil HCl (Aricept) 10 mg PO BID MATHEW Stop: 07/25/17 21:01 Last Admin: 07/04/17 11:35 Dose: 10 mg Enteral Nutritional Formula (Glucerna Shake) 237 ml PO DAILY MATHEW Stop: 07/28/17 09:01 Last Admin: 07/04/17 11:41 Dose: 237 ml Fludrocortisone Acetate (Florinef) 0.1 mg PO DAILY MATHEW Stop: 08/01/17 09:01 Last Admin: 07/03/17 15:34 Dose: 0.1 mg Furosemide (Lasix) 20 mg IV BIDL MATHEW Stop: 07/31/17 17:01 Last Admin: 07/04/17 11:31 Dose: 20 mg Gabapentin (Neurontin) 600 mg PO TID MATHEW Stop: 07/24/17 23:51 Last Admin: 07/04/17 11:35 Dose: 600 mg Ceftriaxone Sodium/Sodium Chloride (Rocephin 1 Gm/10 Ml Swi Ivp) 1 gm in 10 mls @ 600 mls/hr IV DAILY MATHEW Stop: 08/02/17 09:01 Last Admin: 07/04/17 11:57 Dose: 10 mls Ipratropium [place] (Atrovent Neb) 0.5 mg IH Q6HP PRN PRN Reason: COUGH Stop: 07/25/17 07:51 Last Admin: 07/04/17 03:54 Dose: 0.5 mg Levalbuterol HCl (Xopenex) 0.63 mg NEB Q6HP PRN PRN Reason: SHORTNESS OF BREATH Stop: 07/26/17 08:11 Last Admin: 07/04/17 03:53 Dose: 0.63 mg Levothyroxine Sodium (Synthroid) 0.1 mg PO DAILY MATHEW Stop: 07/25/17 09:01 Last Admin: 07/04/17 11:36 Dose: 0.1 mg Melatonin (Melatonin) 6 mg PO BEDTIME MATHEW Stop: 07/25/17 21:01 Last Admin: 07/03/17 21:31 Dose: 6 mg Metoprolol Succinate (Toprol Xl) 50 mg PO BID MATHEW Stop: 07/26/17 21:01 Last Admin: 07/04/17 11:36 Dose: 50 mg Pantoprazole Sodium (Protonix Tab) 40 mg PO DAILY MATHEW Stop: 07/25/17 09:01 Last Admin: 07/04/17 11:37 Dose: 40 mg Polyethylene Glycol (Glycolax) 17 gm PO DAILY PRN PRN Reason: CONSTIPATION Last Admin: 06/30/17 10:08 Dose: 17 gm Prednisone (Deltasone) 10 mg PO BID MATHEW Stop: 07/31/17 09:01 Last Admin: 07/04/17 11:37 Dose: 10 mg Primidone (Mysoline) 50 mg PO BID MATHEW Stop: 07/24/17 21:01 Last Admin: 07/03/17 21:30 Dose: 50 mg Simethicone (Mylicon Tab) 160 mg PO Q6HP PRN PRN Reason: heartburn Stop: 07/24/17 19:24 Sodium Chloride (Normal Saline Flush) 10 ml IV BID MATHEW Stop: 07/24/17 21:01 Last Admin: 07/04/17 11:38 Dose: 10 ml Sodium Chloride (Nacl Tabs) 1 gm PO QID MATHEW Stop: 07/31/17 17:01 Last Admin: 07/04/17 11:35 Dose: 1 gm Tamsulosin HCl (Flomax) 0.4 mg PO BEDTIME MATHEW Stop: 07/24/17 21:01 Last Admin: 07/03/17 21:30 Dose: 0.4 mg Assessment/ Plan: Nephrology. CPS stable without CP or SOB. No acute events overnight. Malaise. Weakness. Anorexia. Vitals, medications, blood work and imaging reviewed in the chart. NAD. MMM. Neck supple. Decreased bases. RRR. Soft Abd. No C/C. Hip edema. No rash. AAO. Normal speech. Na 126 improved 134 A/ Hyponatremia suspicious for SIADH versus Adrenal insufficiency. Hyperkalemia. HTN. Edema. CKD III. Alkalosis. Hypocalcemia. Acute cystitis. Enterobacter cloace P/ Continue current POC and Medications. Continue Lasix and NaCl. Fluid restriction. Agree with abx. AM labs. Daily weight. No NSAIDs.
[2017-07-04] MEDS: FLUDROCORTISONE 0.1 MG TAB PO SCH (14:16)
[2017-07-04] MEDS: PRIMIDONE 50 MG TAB PO SCH (14:16)
[2017-07-04] MEDS ORDERED: Meropenem 1000 MG/VIAL IV SCH (15:03)
[2017-07-04 15:41] VITALS: BP 105/71; TEMP 97; O2SAT 93
[2017-07-04] MEDS ORDERED: Meropenem 1,000 MG in NA CHLORIDE 0.9% 100 ML IV SCH (15:45)
--- NOTE | 2017-07-05 15:54 | P.DS ---
Admission Date: 06/24/17 Discharge Date: 07/05/17 Primary Care Provider: None Disposition: TRANSFER TO SNF - MEDICAL Discharge Condition: GOOD Reason for Admission: COPD Consultations: Nephrology Pulmonology - Problems (1) Respiratory failure Onset Date: 06/25/17 Status: Resolved Qualifiers: Chronicity: acute on chronic Respiratory failure complication: hypoxia and hypercapnia Qualified Code(s): J96.21 - Acute and chronic respiratory failure with hypoxia; J96.22 - Acute and chronic respiratory failure with hypercapnia (2) Atrial fibrillation with RVR Onset Date: 06/25/17 Status: Acute (3) Hyponatremia Onset Date: 06/25/17 Status: Resolved (4) UTI (urinary tract infection) Status: Acute Qualifiers: Urinary tract infection type: acute cystitis Hematuria presence: without hematuria Qualified Code(s): N30.00 - Acute cystitis without hematuria (5) CHF (congestive heart failure) Onset Date: 06/25/17 Status: Acute Qualifiers: Heart failure type: unspecified Heart failure chronicity: acute on chronic Qualified Code(s): I50.9 - Heart failure, unspecified (6) COPD (chronic obstructive pulmonary disease) Onset Date: 06/25/17 Status: Acute Qualifiers: COPD type: COPD with acute exacerbation Qualified Code(s): J44.1 - Chronic obstructive pulmonary disease with (acute) exacerbation (7) Dementia Onset Date: 06/25/17 Status: Chronic Qualifiers: Dementia type: Alzheimer's disease Alzheimer's disease onset: late-onset Dementia behavioral disturbance: without behavioral disturbance Qualified Code (s): G30.1 - Alzheimer's disease with late onset; F02.80 - Dementia in other diseases classified elsewhere without behavioral disturbance (8) GERD (gastroesophageal reflux disease) Onset Date: 06/25/17 Status: Chronic Qualifiers: Esophagitis presence: without esophagitis Qualified Code(s): K21.9 - Gastro -esophageal reflux disease without esophagitis (9) Hyperlipidemia Onset Date: 06/25/17 Status: Chronic Qualifiers: Hyperlipidemia type: mixed hyperlipidemia Qualified Code(s): E78.2 - Mixed hyperlipidemia (10) Diabetes Onset Date: 06/25/17 Status: Chronic Qualifiers: Diabetes mellitus type: type 2 Diabetes mellitus correction insulin use: with terminal operator use Diabetes mellitus complication status: without complication Qualified Code(s): E11.9 - Type 2 diabetes mellitus without complications; Z79.4 - long term care social worker (current) use of insulin (11) Hypothyroidism Onset Date: 06/25/17 Status: Chronic Qualifiers: Hypothyroidism type: acquired Qualified Code(s): E03.9 - Hypothyroidism, unspecified Brief History of Present Illness: This is a 82-year-old female with significant past medical history of COPD, CHF , atrial fibrillation, dementia, hypertension, hyperlipidemia, diabetes, CAD, who presented to the ED complaining of respiratory distress for about 2-3 days from the senior living. Patient was at the EGD today to get her esophageal dilation done for herself stricture however patient was having some respiratory distress and thus was sent to the ER for further care. Patient's family at bedside states that patient has been having some epigastric pain which was most likely secondary to her esophageal stricture and thus she was scheduled for dilation today however for past 2-3 days patient has not been able to eat or drink anything and has been more somnolent and lethargic at the senior living. In the ER patient was found to have elevated CO2 on ABGs along with hyponatremia and respiratory distress was started on BiPAP and was referred over for admission for further care. Hospital Course: Overall during the hospital stay patient remained stable Patient was initially admitted to the hospital for respiratory distress most likely secondary to multifactorial reasons. Patient has a long-term history of CHF, COPD and atrial fibrillation. Patient most likely had respiratory distress most likely secondary to CHF versus COPD exacerbation. Patient was also found to have atrial fibrillation with RVR in the ER. For patient's atrial fibrillation with RVR patient was started on amiodarone drip and was admitted to the ICU. After 48 hr of the trip patient was converted over to p.o. amiodarone. Patient rate and rhythm controlled at that time. For patient' s CHF patient remained on IV Lasix here in the hospital along with beta- aki. For patient's COPD exacerbation patient remained on duo nebs with Xopenex, steroids, oxygen therapy. Patient had marked improvement in her symptoms after day 5 or 6 while here in the hospital. At that time, a decision was made to discharge the patient however patient's urine came back positive for E. coli and patient started having hyponatremia along with acute kidney worsening. Nephrology was consulted who agreed with patient having adrenal insufficiency due to chronic use of steroids due to her COPD. Patient was started on increased use of steroids and fludrocortisone here in the hospital. Patient's sodium improved markedly however patient did require 1 time hypertonic saline in the ICU and was then started on sodium tablets. Patient was also working with physical therapy but a due to generalized weakness and deconditioning. After day 8 or 9 patient started feeling much better and thus was discharged to a retirement facility for IV antibiotics under stable condition. Patient was asked to stop taking her losartan and continue taking her steroids along with fludrocortisone. Patient was to continue taking her amiodarone as well for her AFib. Patient was on Eliquis and was restarted here in the hospital. Patient was asked to follow up with the primary care provider in about 1-2 days post discharge from the retirement facility. Patient was also asked to follow up with pulmonology and nephrology when she gets discharged from the hospital. Vital Signs/Physical Exam: Temp Pulse Resp BP Pulse Ox 97 F 102 H 16 105/71 94 07/04/17 15:41 07/04/17 15:41 07/04/17 15:41 07/04/17 15:41 07/03/17 12:01 General: Alert, In no apparent distress HEENT: Atraumatic, PERRLA, EOMI Neck: Supple, JVD not distended Respiratory: Clear to auscultation bilaterally, Normal air movement Cardiovascular: Regular rate/rhythm, Normal S1 S2 Gastrointestinal: Normal bowel sounds, No tenderness Musculoskeletal: No tenderness Integumentary: No rashes Neurological: Normal speech, Normal tone, Normal affect Lymphatics: No axilla or inguinal lymphadenopathy Laboratory Data at Discharge: WBC 5.6 K/uL (4.3-10.9) D 07/04/17 05:28 Hgb 11.1 g/dL (12.0-15.0) L 07/04/17 05:28 Hct 32.8 % (36.0-45.0) L 07/04/17 05:28 Plt Count 146 K/uL (152-406) L D 07/04/17 05:28 PT 13.5 SECONDS (9.5-12.5) H 06/24/17 12:20 INR 1.14 06/24/17 12:20 Sodium 134 mEq/L (135-145) L 07/04/17 05:28 Potassium 4.0 mEq/L (3.6-5.0) 07/04/17 05:28 BUN 36 mg/dL (6-20) H 07/04/17 05:28 Creatinine 0.96 mg/dL (0.44-1.00) 07/04/17 05:28 Glucose 133 mg/dL (65-120) H 07/04/17 05:28 Uric Acid 5.6 mg/dL (2.6-8.0) 07/04/17 05:28 Phosphorus 3.4 mg/dL (2.5-4.3) 07/04/17 05:28 Magnesium 1.8 mg/dL (1.8-2.5) 07/04/17 05:28 Total Bilirubin 0.7 mg/dL (0.3-1.2) 07/04/17 05:28 AST 23 IU/L (10-42) 07/04/17 05:28 ALT 25 IU/L (10-60) 07/04/17 05:28 Alkaline Phosphatase 50 IU/L (42-121) 07/04/17 05:28 B-Natriuretic Peptide 701 pg/ml (<=100) H 06/24/17 12:20 Triglycerides Cancelled 07/01/17 06:00 Cholesterol Cancelled 07/01/17 06:00 HDL Cholesterol Cancelled 07/01/17 06:00 Cholesterol/HDL Ratio Cancelled 07/01/17 06:00 Home Medications: Acetaminophen [Tylenol] 322 tab PO DAILY PRN 06/24/17 Alendronate Sodium 70 mg PO SEECOM 06/24/17 Dextran 70/Hypromellose [Natural Balance Tears Eye Drop] 15 ml OP Q8H PRN Donepezil HCl [Aricept] 23 mg PO DAILY 06/24/17 Gabapentin [Neurontin*] 600 mg PO TID 06/24/17 Hydrocodone Bit/Acetaminophen [Hydrocodon-Acetaminophn 10-325] 1 each PO Q6H PRN 06/24/17 Hyoscyamine Sulfate [Levsin TAB*] 0.125 mg PO Q6HP PRN 06/24/17 Ipratropium/Albuterol Sulfate [Iprat-Albut 0.5-3(2.5) mg/3 ml] 3 ml IH Q6HP PRN 06/24/17 Levothyroxine Sodium [Unithroid] 100 mcg PO DAILY 06/24/17 Lorazepam [Ativan*] 0.5 mg PO BEDTIME PRN 06/24/17 Melatonin/Pyridoxine HCl (B6) [Melatonin 3 mg Tablet] 2 each PO BEDTIME Menthol [Biofreeze] 118 ml TP Q12H PRN 06/24/17 Metoprolol Succinate 50 mg PO BID 06/24/17 Ondansetron [Zofran (Odt)*] 4 mg PO Q6H PRN 06/24/17 Pantoprazole Sodium [Protonix] 40 mg PO DAILY 06/24/17 Polyethylene Glycol 3350 [Miralax] 17 gm PO DAILY PRN 06/24/17 Primidone [Mysoline *] 50 mg PO BID 06/24/17 Sennosides [Natural Vegetable Laxative] 8.6 mg PO DAILY PRN 06/24/17 Simethicone [Mylicon*] 2 tab PO Q6HP PRN 06/24/17 Tamsulosin [Flomax*] 0.4 mg PO BEDTIME 06/24/17 Tramadol HCl [Ultram] 50 mg PO Q6HP PRN 06/24/17 Tramadol HCl [Ultram] 100 mg PO Q6HP PRN 06/24/17 Vitamin B Complex 100 No.2 [B-100 Complex] 1 tab PO DAILY 06/24/17 Amiodarone HCl [Cordarone*] 400 mg PO BID #120 tab 07/04/17 Apixaban [Eliquis] 5 mg PO BID #60 tablet 07/04/17 Fludrocortisone [Florinef *] 0.1 mg PO DAILY #30 tab 07/04/17 Meropenem [Merrem 1 GM/100 ML NS IVPB] 1 gm IV Q8HR #42 bag 07/04/17 Prednisone [Deltasone*] 10 mg PO BID #60 tab 07/04/17 New Medications: Amiodarone HCl [Cordarone*] 400 mg PO BID #120 tab Apixaban [Eliquis] 5 mg PO BID #60 tablet Fludrocortisone [Florinef *] 0.1 mg PO DAILY #30 tab Meropenem [Merrem 1 GM/100 ML NS IVPB] 1 gm IV Q8HR #42 bag Prednisone [Deltasone*] 10 mg PO BID #60 tab Diet: Regular Activity: Ad tiago Followup: Salomon Bridges DO [ACTIVE - CAN ADMIT] - 1 Week Turner Mattson MD [ACTIVE - CAN ADMIT] - 1 Week
== END 2017-07-04 17:24 | DRG 189 ==
LOC: ER 11:57 → ERHOLD 14:40 → 3RD-ICU 16:56 → 4TH 06-27 12:50 → 3RD-ICU 06-29 13:13 → 4TH 06-30 15:33
PROVIDERS: ADMIT Family Medicine; ATTEND Family Medicine
PROC: 5A09357 Assistance with Respiratory Ventilation, Less than 24 Consecutive Hours, Continuous Positive Airway Pressure (ICD-10-PCS; 2017-06-24)
PROC: 02HV33Z Insertion of Infusion Device into Superior Vena Cava, Percutaneous Approach (ICD-10-PCS; principal; 2017-06-25)
DX: J96.22 Acute and chronic respiratory failure with hypercapnia (principal); I50.23 Acute on chronic systolic (congestive) heart failure; J44.1 Chronic obstructive pulmonary disease with (acute) exacerbation; E87.1 Hypo-osmolality and hyponatremia; N30.00 Acute cystitis without hematuria; I13.0 Hypertensive heart and chronic kidney disease with heart failure and stage 1 through stage 4 chronic kidney disease, or unspecified chronic kidney disease; K22.2 Esophageal obstruction; I48.91 Unspecified atrial fibrillation; J96.01 Acute respiratory failure with hypoxia; E87.5 Hyperkalemia; E83.51 Hypocalcemia; E11.22 Type 2 diabetes mellitus with diabetic chronic kidney disease; N18.3 Chronic kidney disease, stage 3 (moderate); E78.5 Hyperlipidemia, unspecified; I25.10 Atherosclerotic heart disease of native coronary artery without angina pectoris; E03.9 Hypothyroidism, unspecified; F03.90 Unspecified dementia, unspecified severity, without behavioral disturbance, psychotic disturbance, mood disturbance, and anxiety
CPT/HCPCS: 36415; 71045; 71250; 74230; 80048; 80053; 80061; 81001; 81003; 81015; 82533; 82570; 82805; 83735; 83880; 83930; 83935; 84100; 84132; 84145; 84300; 84439; 84443; 84484; 84550; 85025; 85610; 87040; 87077; 87086; 87088; 87186; 87205; 93005; 93306; 94640; 94660; 94760; 96374; 96375; 97163; 99285; J0282; J0696; J1650; J1940; J3475; J7060; J7512; J7605

== ENCOUNTER 2017-07-10 13:08 | Emergency (ER) | payer OTHER ==
[~2017-07-10 13:08] MED LIST: RSI MEDICATION KIT IV ONE
[2017-07-10] MEDS ORDERED: ETOMIDATE 20 MG/10 ML VIAL IV ONE (13:09)
[2017-07-10] MEDS ORDERED: SUCCINYLCHOLINE 20 MG/ML (10 ML) IV ONE (13:09)
[2017-07-10] MEDS ORDERED: NA CHLORIDE 0.9% 2,000 ML ONE (13:26)
--- NOTE | 2017-07-10 13:37 | RAD REPORT ---
EXAM DESCRIPTION: RAD - Chest Single View - 07/10/2017 1:28 pm CLINICAL HISTORY: Respiratory distress, intubation COMPARISON: June 26 TECHNIQUE: AP portable chest image was obtained 1325 hours . FINDINGS: Endotracheal tube tip is T5 level mid aortic arch. This is approximately 1.5 cm above the leobardo. Right upper extremity PICC line has not changed. Gastric tube extends to at least antrum of t he stomach. Interstitial and alveolar opacities are present. Vascular engorgement is present. Cardiac silhouette is slightly enlarged. Bilateral pleural effusions are present small in size with no pneumothorax. No gross bony abnormality seen. No acute aortic findings suspected. IMPRESSION: Mild to moderate CHF/ volume overload findings. Endotracheal tube in good position.
[2017-07-10] MEDS ORDERED: PROPOFOL 1,000 MG/100 ML VIAL IV ONE ×2 (13:40→16:58)
[2017-07-10] MEDS ORDERED: FENTANYL CITR 100 MCG/2 ML ONE (13:48)
[2017-07-10] MEDS ORDERED: MIDAZOLAM HCL 2 MG/2 ML INJ ONE (13:48)
[2017-07-10 13:54] LABS: Arterial Blood Carboxyhemoglob 1.9 % (0-1.5); Blood Gas Oxyhemoglobin 97.5 % (94-97)
[2017-07-10] MEDS ORDERED: FUROSEMIDE 100 MG/10 ML VIAL IV ONE (13:57)
[2017-07-10] MEDS ORDERED: DOBUTAMINE 250 MG/250 ML BAG IV ONE (14:07)
[2017-07-10 14:16] LABS: Absolute Lymphocytes (CBC) 0.7 K/uL (0.7-4.9); Absolute Monocytes 0.7 K/uL (0.1-1.3); Absolute Neutrophil 16.7 K/uL (1.8-8.0); Basophils % 0.4 % (0-1.3); Eosinophils % 0.2 % (0-4.4); Hematocrit 35.8 % (36.0-45.0); Lymphocytes % 3.6 % (15.3-44.8); MCH 31.9 pg (27.0-35.0); MCV 100.6 fL (80-100); MPV 10.1 fL (7.6-11.3); Monocytes % 3.7 % (3.3-12.3); RBC Red Blood Cell Count 3.56 M/uL (3.86-4.86)
[2017-07-10 14:20] LABS: Protime INR 1.99
[2017-07-10 14:47] LABS: Albumin 2.9 g/dL (3.2-5.5); Bilirubin Direct 0.2 mg/dL (0-0.2); Bilirubin Total 0.7 mg/dL (0.3-1.2); CKMB Creatine Kinase MB 1.1 ng/ml (0.3-4.0); Potassium 3.6 mEq/L (3.6-5.0); Protein, Total 5.4 g/dL (6.0-8.3)
[2017-07-10 14:52] LABS: Urine Bacteria 20-50 /HPF (<20)
[2017-07-10 14:53] LABS: Urine Culture Reflex Order NOT NEEDED; Urine Yeast FEW (NONE SEEN)
[2017-07-10] MEDS ORDERED: VANCOMYCIN/NS 1 gm 1 GM/250 ML BAG IV ONE (15:45)
--- NOTE | 2017-07-10 15:45 | ER ---
Nurse's Notes [facility] Name: Blaire Dunlap Age: 82 yrs Sex: Female : 1935 Arrival Date: 07/10/2017 Time: 13:10 Bed 2 Private MD: Diagnosis: Acute respiratory failure;Acute systolic (congestive) heart failure;Elevated white blood cell count, unspecified Presentation: 07/10 13:06 Presenting complaint: EMS states: acute SOB that started today as stated by CO staff at [facility]. Staff gave an A\T\A treatment. On EMS arrival pt was on O2 \T\ 2L per NC with O2 sat of 60%. Pt placed on CPAP, O2 sat on ER arrival 88%. Transition of care: patient was received from another setting of care (long-term care [facility]. 13:06 Acuity: BRUNA 1 sv 13:06 Method Of Arrival: EMS: [facility] 13:07 Onset of symptoms was July 10, 2017. Risk Assessment: Do you want to hurt yourself or sv someone else? Patient reports no desire to harm self or others. Initial Sepsis Screen: Does the patient meet any 2 criteria? Systolic BP < 90 mmHg. Altered Mental Status. HR > 90 bpm. Yes Does the patient have a suspected source of infection? Yes: Productive cough/pneumonia Dysuria/Frequency/Urgency/UTI Other: Pt has E.coli as stated by CO staff. Care prior to arrival: Oxygen administered. via CPAP or BiPAP. Triage Assessment: 13:06 General: Appears uncomfortable, well developed, Behavior is cooperative, anxious. Pain: sv Unable to use pain scale. FLACC scale score is 0 out of 10. EENT: No signs and/or symptoms were reported regarding the EENT system. Neuro: Level of Consciousness is alert, lethargic, Oriented to person. Cardiovascular: Patient's skin is warm and dry. Pulses are 3+ in right radial artery and left radial artery Rhythm is atrial fibrillation. Respiratory: Respiratory effort is labored, using tripod position, Respiratory pattern is tachypnea Breath sounds are diminished in left upper lobe and left lower lobe. GI: Abdomen is round. Derm: Skin is normal. Musculoskeletal: No signs and/or symptoms reported regarding the musculoskeletal system. Historical: - Allergies: 13:14 NKA; aa5 - Home Meds: 16:29 alendronate 70 mg Oral tab 1 tab once wkly [Active]; amiodarone 400 mg Oral tab 1 tab aa5 twice a day [Active]; Aricept 23 mg Oral tab 1 tab once daily [Active]; Ativan 0.5 mg Oral tab at bedtime [Active]; Bentyl 20 mg Oral tab 3 times per day [Active]; vitamin B-100 once a day [Active]; Breo Ellipta 100-25 mcg/dose inhalation dsdv 1 puff once daily [Active]; calcium vitamin D 600-200 mg-unit once a day [Active]; Celexa 20 mg Oral tab once daily [Active]; Claritin 10 mg Oral tab 1 tab once daily [Active]; acetaminophen 650 mg oral TbER every 6 hrs PRN [Active]; DuoNeb 0.5 mg-3 mg(2.5 mg base)/3 mL Inhl nebu Q 6hrs PRN [Active]; Eliquis 5 mg oral tab 1 tab 2 times per day [Active]; ferrous sulfate 325 mg (65 mg iron) Oral tab twice a day [Active]; 16:39 fludrocortisone 0.1 mg oral tab once daily [Active]; fluticasone 50 mcg/actuation nasal aa5 spsn 2 sprays to each nostril once a day [Active]; gabapentin 600 mg oral tab 3 times per day [Active]; hydrocodone-acetaminophen 10-325 mg Oral tab every 6 hrs PRN [Active]; levothyroxine 100 mcg tab once daily [Active]; Levsin 0.125 mg oral tab once a day [Active]; melatonin 3 mg Oral tab administer 2 tabs at bedtime [Active]; Merrem 1 gram intravenous solr every 8 hrs for UTI [Active]; metoprolol tartrate 50 mg Oral tab 2 times per day [Active]; Miralax 17 gram/dose Oral powd once daily [Active]; Natural Balance Tears ophthalmic ophthalmic [Active]; prednisone 10 mg Oral tab once daily [Active]; primidone 50 mg Oral tab twice a day [Active]; Protonix 40 mg Oral TbEC 1 tab once daily [Active]; senna 8.6 mg oral cap 2 caps once daily [Active]; simethicone 80 mg Oral chew take 2 tabs every 6 hrs PRN for Flatulence [Active]; tamsulosin 0.4 mg oral cp24 1 cap once daily [Active]; Zofran (as hydrochloride) 4 mg oral tab every 6hrs PRN [Active]; - PMHx: 13:14 Arthritis; Atrial Fib; CAD; C-diff; Chronic pain; Chronic Pancreatitis; Dementia; aa5 Diabetes; Hyperlipidemia; Hypothyroidism; 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 - Social history:: Smoking status: Patient/guardian denies using tobacco. - Ebola Screening: : No symptoms or risks identified at this time. Screenin:19 Abuse screen: Denies threats or abuse. Denies injuries from another. Nutritional sv screening: No deficits noted. Tuberculosis screening: No symptoms or risk factors identified. Fall Risk No fall in past 12 months (0 pts). Secondary diagnosis (15 points) impaired mobility, IV access (20 points). Ambulatory Aid- None/Bed Rest/Nurse Assist (0 pts). Gait- Impaired (20 pts.). Mental Status- Overestimates/Forgets Limitations (15 pts.). Total Dial Fall Scale indicates High Risk Score (45 or more points). Fall prevention measures have been instituted. Side Rails Up X 2 Placed Close to Nursing Station Frequent Obs/Assessments Occuring Family Present and informed to notify staff if the need to leave the bedside As available patient and family educated on Fall Prevention Program and Strategies. Assessment: 14:00 Reassessment: Patient and/or family updated on plan of care and expected duration. Pain sv level reassessed. General: Behavior is agitated. Neuro: Level of Consciousness is awake, confused. 14:50 Reassessment: Patient and/or family updated on plan of care and expected duration. Pain sv level reassessed. General: Behavior is agitated. Neuro: Level of Consciousness is awake, confused. Respiratory: Respiratory effort is even, labored, Respiratory pattern is tachypnea. 15:00 Reassessment: Patient and/or family updated on plan of care and expected duration. Pain sv level reassessed. General: Behavior is agitated. Neuro: Level of Consciousness is awake, confused. Respiratory: Respiratory effort is even, labored, Respiratory pattern is tachypnea. 15:15 General: Behavior is calm. Neuro: Level of Consciousness is lethargic. Respiratory: sv Respiratory effort is even, unlabored, Respiratory pattern is regular, symmetrical. 16:30 General: Behavior is agitated. Neuro: Level of Consciousness is confused. Respiratory: sv Respiratory effort is even, unlabored, Respiratory pattern is tachypnea. 16:41 Reassessment: Report given to [facility]. sv Vital Signs: 13:14 BP 83 / 64; Pulse Ox 80% on BVM; sv 13:15 Pulse Ox 99% on BVM; sv 13:16 BP 94 / 75; Pulse Ox 100% on BVM; sv 13:18 BP 110 / 78; Pulse Ox 100% on BVM; sv 13:20 BP 110 / 78; Pulse 133; Resp 42 S; Pulse Ox 68% on 100% BiPAP; sg 13:24 Weight 67.13 kg (R); sv 13:47 BP 114 / 73; Pulse 140; Resp 15; Pulse Ox 100% on 100% FiO2 ETT vent; sv 14:00 BP 85 / 65; Pulse 126; Resp 16; Pulse Ox 100% on 50% FiO2 ETT vent; sv 14:00 BP 126 / 62; Pulse 135; Resp 21; Pulse Ox 100% on 50% FiO2 ETT vent; sv 14:10 BP 86 / 66; Pulse 121; Resp 16; Pulse Ox 99% on 50% FiO2 ETT vent; sv 14:50 BP 133 / 87; Pulse 138; Resp 16; Temp 97.3(TE); Pulse Ox 100% on 50% FiO2 ETT vent; sv 15:20 BP 126 / 78; Pulse 117 MON; Resp 16; Pulse Ox 100% on 40% FiO2 ETT vent; sv 16:00 BP 121 / 82; Pulse 110; Resp 16; Pulse Ox 99% on 40% FiO2 ETT vent; sv 16:30 BP 146 / 91; Pulse 115; Resp 16; Pulse Ox 99% on 40% FiO2 ETT vent; sv 16:46 BP 137 / 97; Pulse 117 MON; Resp 16; Pulse Ox 99% on 40% FiO2 ETT vent; sv 15:20 A fib sv 16:46 A fib sv ED Course: 13:10 Patient arrived in ED. aa5 13:10 Arm band placed on. aa5 13:10 monitoring analyst on. Pulse ox on. NIBP on. sv 13:13 Jez Doshi PA is PHCP. jr8 13:13 Maxi Frye MD is Attending Physician. jr8 13:15 Assisted provider with intubation using 7.5 mm ETT via oral route. ET tube secured at sv 23cm at the gums. Set up intubation tray. Intubated by Jez REES Placement verified by CXR, CO2 detector w/ + color change, auscultating bilateral breath sounds. 13:23 Kathy Monreal, JOHANNA is Primary Nurse. sv 13:25 EKG done, by aerospace physiological technician. reviewed by Jez REES. sm3 13:27 Chest Single View XRAY In Process Unspecified. EDMS 13:30 Salgado cath inserted, using sterile technique, 16 Fr., by me, balloon inflated, urine sg specimen collected. returned clear yellow urine. Patient tolerated well. NGT: inserted 14 Fr. via right nare. Placement verified by X-ray, to intermittent suction. Patient tolerated well. 13:40 Arm band placed on left ankle. sv 13:45 Patient has correct armband on for positive identification. Placed in gown. Bed in low sv position. Call light in reach. Side rails up X2. 13:45 First set of blood cultures drawn by me. Initial lab(s) drawn, by me, sent to lab. sg Inserted saline lock: 22 gauge in left forearm, using aseptic technique. Blood collected. 14:00 Second set of blood cultures drawn by me. sg 14:29 Triage completed. sv 16:42 Patient transferred, IV remains in place. intact. sv Restraints: 14:00 Non-Violent Restraint: Order obtained. Initiated on July 10, 2017 at 14:00 Restraint sv Education provided to family/significant other/legally authorized community health representative. Actions/Behavior observed: Confused/disoriented, has difficulty remembering/follow instructions, has impaired decision making, has decreased level of consciousness, unable to follow instructions, repeated attempts to remove/tamper lines/tubes/IV med devices \T\ wound dressing, repeated attempts to remove artifical airway/mechanical resp support, Less restrictive alternatives attempted: decrease environmental stimuli, placed near Nurse station, reoriented to location, family at bedside, medicated for pain/anxiety, lines/tubes covered, verbal de-escalation performed, Alternative interventions: Ineffective. Clinical justification for use: airway protection, line protection, patient safety. 16:00 Non-Violent Restraint: Mental status: patient asleep, Cognition: poor safety awareness, sv impulsive, unable to follow commands, Circulation: Within defined parameters (based on Cardiovascular assessment) Skin integrity: Within defined parameters (based on Integumentary assessment) Signs of injury related to restraint: No injuries noted. Range of Motion (ROM): patient asleep. Hydration/Food: patient asleep. Elimination/Hygiene: with urinary catheter, Restraint status: Side rails up x 4 Continued. Soft wrist restraint (Right) Continued. Soft wrist restraint (Left) Continued. Criteria to discontinue Restraint not met. Restraint continued. Administered Medications: 13:13 Drug: Etomidate 20 mg Route: IVP; Site: PICC; sv 13:30 Follow up: Response: No adverse reaction sv 13:13 Drug: Succinylcholine 70 mg Route: IVP; Site: PICC; sv 13:30 Follow up: Response: No adverse reaction sv 13:50 Drug: Lasix 60 mg Route: IVP; Site: PICC; sv 14:23 Follow up: Response: No adverse reaction sv 14:10 Drug: DOBUTamine (250 mg/250mL premix) 5 mcg/kg/min Route: IV; Rate: calculated rate; sv Site: PICC; 15:00 Follow up: Rate change 4 calculated rate sv 17:13 Follow up: Response: No adverse reaction; IV Status: Infusion continued upon transfer sv 14:18 CANCELLED (PA discretion): NS 0.9% (30 ml/kg) 30 ml/kg IV at bolus once; Sepsis Protocolsv 14:50 Drug: fentaNYL (PF) 75 mcg Route: IVP; Site: PICC; sv 15:00 Follow up: Response: No adverse reaction sv 14:50 Drug: Propofol 5 mcg/kg/min Route: IV; Rate: calculated rate; Site: PICC; sv 15:00 Follow up: Rate change 10 mcg/kg/min sv 15:09 Follow up: Rate change 20 mcg/kg/min sv 16:30 Follow up: Rate change 25 mcg/kg/min sv 17:12 Follow up: Response: No adverse reaction; IV Status: Infusion continued upon transfer sv 14:51 Drug: Versed 3 mg Route: IVP; Site: PICC; sv 15:00 Follow up: Response: No adverse reaction sv 16:14 Drug: vancoMYCIN 1 grams Route: IVPB; Infused Over: 2 hrs; Site: PICC; sv 17:12 Follow up: Response: No adverse reaction; IV Status: Infusion continued upon transfer sv 16:14 Drug: Meropenem 1 grams Route: IV; Rate: calculated rate; Site: left forearm; sv 17:12 Follow up: Response: No adverse reaction; IV Status: Infusion continued upon transfer sv Output: 17:15 Urine: 1300ml ([place]); Total: 1300ml. sv Ventilator: 15:26 Fi02: 40%; Rate: 16min; T.V.: 470ml; Peep: 5cm; Mode: CMV; sv Outcome: 15:43 ER care complete, transfer ordered by MD. rausch 16:00 Transferred by ground EMS to [facility], Transfer form completed. sv X-rays sent w/ patient. Note: Report called to Veena SPENCER 16:00 Condition: stable 16:00 Instructed on the need for transfer. 17:20 Patient left the ED. sv Signatures: Dispatcher [employer] Kathy Reynolds RN RN Donnell Stewart RN RN sg Calderon, Audri, RN RN aa5 Jez Doshi PA PA jr8 Mary Anne Blake 3 Corrections: (The following items were deleted from the chart) 14:17 14:10 DOBUTamine (250 mg/250mL premix) 5 mcg/kg/min IV at calculated rate in right sv upper arm sv
--- NOTE | 2017-07-10 15:45 | EDPHYS ---
Physician Documentation [facility] Name: Blaire Dunlap Age: 82 yrs Sex: Female : 1935 Arrival Date: 07/10/2017 Time: 13:10 Bed 2 Private MD: ED Physician Maxi Frye HPI: 07/10 14:33 This 82 yrs old Female presents to ER via EMS with complaints of Breathing jr8 Difficulty. 14:33 The patient has shortness of breath at rest. Onset: The symptoms/episode began/occurred jr8 gradually, 2 day(s) ago, and became worse and became persistent. Duration: The symptoms are continuous. The patient's shortness of breath has no apparent modifying factors. Associated signs and symptoms: The patient has no apparent associated signs or symptoms. Severity of symptoms: At their worst the symptoms were severe. It is unknown whether or not the patient has had similar symptoms in the past. The patient has been recently seen by a physician:. Historical: - Allergies: 13:14 NKA; aa5 - Home Meds: 16:29 alendronate 70 mg Oral tab 1 tab once wkly [Active]; amiodarone 400 mg Oral tab 1 tab aa5 twice a day [Active]; Aricept 23 mg Oral tab 1 tab once daily [Active]; Ativan 0.5 mg Oral tab at bedtime [Active]; Bentyl 20 mg Oral tab 3 times per day [Active]; vitamin B-100 once a day [Active]; Breo Ellipta 100-25 mcg/dose inhalation dsdv 1 puff once daily [Active]; calcium vitamin D 600-200 mg-unit once a day [Active]; Celexa 20 mg Oral tab once daily [Active]; Claritin 10 mg Oral tab 1 tab once daily [Active]; acetaminophen 650 mg oral TbER every 6 hrs PRN [Active]; DuoNeb 0.5 mg-3 mg(2.5 mg base)/3 mL Inhl nebu Q 6hrs PRN [Active]; Eliquis 5 mg oral tab 1 tab 2 times per day [Active]; ferrous sulfate 325 mg (65 mg iron) Oral tab twice a day [Active]; 16:39 fludrocortisone 0.1 mg oral tab once daily [Active]; fluticasone 50 mcg/actuation nasal aa5 spsn 2 sprays to each nostril once a day [Active]; gabapentin 600 mg oral tab 3 times per day [Active]; hydrocodone-acetaminophen 10-325 mg Oral tab every 6 hrs PRN [Active]; levothyroxine 100 mcg tab once daily [Active]; Levsin 0.125 mg oral tab once a day [Active]; melatonin 3 mg Oral tab administer 2 tabs at bedtime [Active]; Merrem 1 gram intravenous solr every 8 hrs for UTI [Active]; metoprolol tartrate 50 mg Oral tab 2 times per day [Active]; Miralax 17 gram/dose Oral powd once daily [Active]; Natural Balance Tears ophthalmic ophthalmic [Active]; prednisone 10 mg Oral tab once daily [Active]; primidone 50 mg Oral tab twice a day [Active]; Protonix 40 mg Oral TbEC 1 tab once daily [Active]; senna 8.6 mg oral cap 2 caps once daily [Active]; simethicone 80 mg Oral chew take 2 tabs every 6 hrs PRN for Flatulence [Active]; tamsulosin 0.4 mg oral cp24 1 cap once daily [Active]; Zofran (as hydrochloride) 4 mg oral tab every 6hrs PRN [Active]; - PMHx: 13:14 Arthritis; Atrial Fib; CAD; C-diff; Chronic pain; Chronic Pancreatitis; Dementia; aa5 Diabetes; Hyperlipidemia; Hypothyroidism; 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 - Social history:: Smoking status: Patient/guardian denies using tobacco. - Ebola Screening: : No symptoms or risks identified at this time. ROS: 14:33 Eyes: Negative for injury, pain, redness, and discharge, ENT: Negative for injury, jr8 pain, and discharge, Neck: Negative for injury, pain, and swelling, Cardiovascular: Negative for chest pain, palpitations, and edema, Abdomen/GI: Negative for abdominal pain, nausea, vomiting, diarrhea, and constipation, Back: Negative for injury and pain, MS/Extremity: Negative for injury and deformity, Skin: Negative for injury, rash, and discoloration, Neuro: Negative for headache, weakness, numbness, tingling, and seizure. 14:33 Respiratory: Positive for orthopnea, shortness of breath, at rest. Exam: 14:33 Eyes: Pupils equal round and reactive to light, extra-ocular motions intact. Lids and jr8 lashes normal. Conjunctiva and sclera are non-icteric and not injected. Cornea within normal limits. Periorbital areas with no swelling, redness, or edema. ENT: Nares patent. No nasal discharge, no septal abnormalities noted. Tympanic membranes are normal and external auditory canals are clear. Oropharynx with no redness, swelling, or masses, exudates, or evidence of obstruction, uvula midline. Mucous membranes moist. Neck: Trachea midline, no thyromegaly or masses palpated, and no cervical lymphadenopathy. Supple, full range of motion without nuchal rigidity, or vertebral point tenderness. No Meningismus. Abdomen/GI: Soft, non-tender, with normal bowel sounds. No distension or tympany. No guarding or rebound. No evidence of tenderness throughout. Back: No spinal tenderness. No costovertebral tenderness. Full range of motion. Skin: Warm, dry with normal turgor. Normal color with no rashes, no lesions, and no evidence of cellulitis. MS/ Extremity: Pulses equal, no cyanosis. Neurovascular intact. Full, normal range of motion. Neuro: Awake and alert, GCS 15, oriented to person, place, time, and situation. Cranial nerves II-XII grossly intact. Motor strength 5/5 in all extremities. Sensory grossly intact. Cerebellar exam normal. Normal gait. 14:33 Cardiovascular: Rate: tachycardic, Rhythm: irregularly irregular, Pulses: Pulses are 2+ in right radial artery and left radial artery. Heart sounds: normal, normal S1and S2, no S3 or S4, no murmur, no rub, no gallop, Edema: is not appreciated. 14:33 Respiratory: severe repiratory distress is noted, Respirations: labored breathing, shallow respirations, tachypnea, Breath sounds: rales, that are moderate, are heard diffusely, decreased breath sounds, that are moderate, are heard in the left upper lobe and left posterior upper lobe. Vital Signs: 13:14 BP 83 / 64; Pulse Ox 80% on BVM; sv 13:15 Pulse Ox 99% on BVM; sv 13:16 BP 94 / 75; Pulse Ox 100% on BVM; sv 13:18 BP 110 / 78; Pulse Ox 100% on BVM; sv 13:20 BP 110 / 78; Pulse 133; Resp 42 S; Pulse Ox 68% on 100% BiPAP; sg 13:24 Weight 67.13 kg (R); sv 13:47 BP 114 / 73; Pulse 140; Resp 15; Pulse Ox 100% on 100% FiO2 ETT vent; sv 14:00 BP 85 / 65; Pulse 126; Resp 16; Pulse Ox 100% on 50% FiO2 ETT vent; sv 14:00 BP 126 / 62; Pulse 135; Resp 21; Pulse Ox 100% on 50% FiO2 ETT vent; sv 14:10 BP 86 / 66; Pulse 121; Resp 16; Pulse Ox 99% on 50% FiO2 ETT vent; sv 14:50 BP 133 / 87; Pulse 138; Resp 16; Temp 97.3(TE); Pulse Ox 100% on 50% FiO2 ETT vent; sv 15:20 BP 126 / 78; Pulse 117 MON; Resp 16; Pulse Ox 100% on 40% FiO2 ETT vent; sv 16:00 BP 121 / 82; Pulse 110; Resp 16; Pulse Ox 99% on 40% FiO2 ETT vent; sv 16:30 BP 146 / 91; Pulse 115; Resp 16; Pulse Ox 99% on 40% FiO2 ETT vent; sv 16:46 BP 137 / 97; Pulse 117 MON; Resp 16; Pulse Ox 99% on 40% FiO2 ETT vent; sv 15:20 A fib sv 16:46 A fib sv Ventilator: 15:26 Fi02: 40%; Rate: 16min; T.V.: 470ml; Peep: 5cm; Mode: CMV; sv Procedures: 14:33 Intubation: Intubated orally using # 4 Jimmy blade with 7.5 mm ETT. was successful jr8 on first attempt. Ventilated with Ambu bag. ventilator. Cricoid pressure applied during procedure. Tube secured with ETT gonzalez measured 23 cm at lip. Placement verified by CXR, CO2 detector with (+) color change, auscultating bilateral breath sounds, O2 saturation after procedure was 100 %. Patient tolerated well. MDM: 13:13 Patient medically screened. [facility] 15:42 Data reviewed: vital signs, nurses notes, lab test result(s), EKG, radiologic studies, [facility] plain films, and as a result, I will admit patient. Data interpreted: Pulse oximetry: on room air is 62 %. Interpretation: hypoxia. Counseling: I had a detailed discussion with the patient and/or guardian regarding: the historical points, exam findings, and any diagnostic results supporting the discharge/admit diagnosis, lab results, radiology results, the need to transfer to another facility, for higher level of care. ED course: No ICU beds. [facility] accepted patient for transfer . 07/10 13:21 Order name: ABG; Complete Time: 14: [facility] 07/10 13:21 Order name: Amylase, Serum; Complete Time: 15: [facility] 07/10 13:21 Order name: Basic Metabolic Panel; Complete Time: 15: [facility] 07/10 13:21 Order name: Blood Culture Adult (2) [facility] 07/10 13:21 Order name: BNP; Complete Time: 15: [facility] 07/10 13:21 Order name: CBC with Diff 07/10 13:21 Order name: Ckmb; Complete Time: 15:09 [facility] 07/10 13:21 Order name: CPK; Complete Time: 15:09 [facility] 07/10 13:21 Order name: Lactate; Complete Time: 14:32 [facility] 07/10 13:21 Order name: LFT's; Complete Time: 15:09 [facility] 07/10 13:21 Order name: Procalcitonin; Complete Time: 15:20 [facility] 07/10 13:21 Order name: Protime (+inr); Complete Time: 14:32 [facility] 07/10 13:21 Order name: Ptt, Activated; Complete Time: 14:32 [facility] 07/10 13:21 Order name: Troponin (emerg Dept Use Only); Complete Time: 14:32 [facility] 07/10 13:19 Order name: Chest Single View XRAY; Complete Time: 13:39 em1 07/10 14:00 Order name: Sputum Culture rn 07/10 14:31 Order name: Urine Dipstick--Ancillary (enter results) dm5 07/10 14:32 Order name: Urine Culture jb1 07/10 14:32 Order name: Urine Microscopic Only; Complete Time: 15:09 jb07/10 13:21 Order name: Cath; Complete Time: 14:07/10 13:21 Order name: Accucheck; Complete Time: 14:07/10 13:21 Order name: Cardiac monitoring; Complete Time: 14:07/10 13:21 Order name: EKG - Nurse/Tech; Complete Time: 14:07/10 13:21 Order name: IV Saline Lock - Large Bore; Complete Time: 14:07/10 13:21 Order name: Labs collected and sent; Complete Time: 14:07/10 13:21 Order name: O2 Per Protocol; Complete Time: 14:07/10 13:21 Order name: O2 Sat Monitoring; Complete Time: 14:07/10 13:21 Order name: Urine Dipstick-Ancillary (obtain specimen); Complete Time: 14:07/10 17:20 Order name: EKG Electrocardiogram EDMS Administered Medications: 13:13 Drug: Etomidate 20 mg Route: IVP; Site: PICC; sv 13:30 Follow up: Response: No adverse reaction sv 13:13 Drug: Succinylcholine 70 mg Route: IVP; Site: PICC; sv 13:30 Follow up: Response: No adverse reaction sv 13:50 Drug: Lasix 60 mg Route: IVP; Site: PICC; sv 14:23 Follow up: Response: No adverse reaction sv 14:10 Drug: DOBUTamine (250 mg/250mL premix) 5 mcg/kg/min Route: IV; Rate: calculated rate; sv Site: PICC; 15:00 Follow up: Rate change 4 calculated rate sv 17:13 Follow up: Response: No adverse reaction; IV Status: Infusion continued upon transfer sv 14:18 CANCELLED (PA discretion): NS 0.9% (30 ml/kg) 30 ml/kg IV at bolus once; Sepsis Protocolsv 14:50 Drug: fentaNYL (PF) 75 mcg Route: IVP; Site: PICC; sv 15:00 Follow up: Response: No adverse reaction sv 14:50 Drug: Propofol 5 mcg/kg/min Route: IV; Rate: calculated rate; Site: PICC; sv 15:00 Follow up: Rate change 10 mcg/kg/min sv 15:09 Follow up: Rate change 20 mcg/kg/min sv 16:30 Follow up: Rate change 25 mcg/kg/min sv 17:12 Follow up: Response: No adverse reaction; IV Status: Infusion continued upon transfer sv 14:51 Drug: Versed 3 mg Route: IVP; Site: PICC; sv 15:00 Follow up: Response: No adverse reaction sv 16:14 Drug: vancoMYCIN 1 grams Route: IVPB; Infused Over: 2 hrs; Site: PICC; sv 17:12 Follow up: Response: No adverse reaction; IV Status: Infusion continued upon transfer sv 16:14 Drug: Meropenem 1 grams Route: IV; Rate: calculated rate; Site: left forearm; sv 17:12 Follow up: Response: No adverse reaction; IV Status: Infusion continued upon transfer sv Disposition: 15:51 Critical Care:. jr8 18:09 Co-signature as Attending Physician, Maxi Frye MD. rn 18:10 Co-signature as Attending Physician, Maxi Frye MD. rn Disposition: 07/10/17 15:43 Transfer ordered to [facility]. Diagnosis are Acute respiratory failure, Acute systolic (congestive) heart failure, Elevated white blood cell count, unspecified. - Reason for transfer: Higher level of care. - Accepting physician is [facility]. - Condition is Fair. - Problem is new. - Symptoms have improved. Critical care time excluding procedures: 15:51 Critical care time: Bedside Care: 20 minutes, Consultation: 15 minutes, Family jr8 Intervention: 15 minutes. Total time: 50 minutes Signatures: Dispatcher [employer] Kathy Reynolds RN RN sv Nieto, Roman, MD MD rn Calderon, Audri RN RN aa5 Jez Doshi PA PA jr8 Corrections: (The following items were deleted from the chart) 13:28 13:21 Chest Single View+RAD.[email or web address].BRZ ordered. EDNV EDNV 14:18 13:21 NS 0.9% (30 ml/kg) 30 ml/kg IV at bolus once; Sepsis Protocol ordered. jr8 sv 17:20 15:43 07/10/2017 15:43 Transfer ordered to [facility]. Diagnosis is sv Acute respiratory failure; Acute systolic (congestive) heart failure; Elevated white blood cell count, unspecified. Reason for transfer: Higher level of care. [facility]. Condition is Fair. Problem is new. Symptoms have improved. jr8
[2017-07-10] MEDS ORDERED: Meropenem 1,000 MG in NA CHLORIDE 0.9% 100 ML IV ONE (16:00)
[2017-07-10 17:34] VITALS: TEMP 97.3
[2017-07-10 17:37] VITALS: O2SAT 99
[2017-07-10 17:40] VITALS: BP 137/97
[2017-07-10 17:40] LABS: Blood Morphology Comment NOT SEEN (NOT SEEN); Platelet Estimate ADEQ; Urine White Blood Cell Casts OK
[2017-07-10 20:29] LABS: Urine Blood TRACE (NEG); Urine Glucose NEGATIVE (NEG); Urine Protein 1+ (NEG); Urine Specific Gravity 1.025 (1.005-1.030)
--- NOTE | 2017-07-10 22:52 | EKG ---
Test Date: 2017-07-10 Test Time: 13:25:09 Gate Supervisor: MEGHNA MEASUREMENT RESULTS: Intervals: Rate: 128 TN: QRSD: 98 QT: 350 QTc: 511 [place]: P: TN: QRS: 64 T: 250 INTERPRETIVE STATEMENTS: Atrial fibrillation with rapid ventricular response Incomplete right bundle branch block Nonspecific ST and T wave abnormality Abnormal ECG Compared to ECG 06/24/2017 13:53:21 Incomplete right bundle-branch block now present Possible ischemia no longer present ST (T wave) deviation still present Electronically Signed On 07-10-17 22:52:02 CDT by Smith Fontanez
== END 2017-07-10 17:20 | disposition short-term general hospital (02) ==
LOC: ER 13:08
PROC: 0BH17EZ Insertion of Endotracheal Airway into Trachea, Via Natural or Artificial Opening (ICD-10-PCS; principal; 2017-07-10)
PROC: 5A1935Z Respiratory Ventilation, Less than 24 Consecutive Hours (ICD-10-PCS; 2017-07-10)
DX: I50.21 Acute systolic (congestive) heart failure (principal); D72.829 Elevated white blood cell count, unspecified; I10 Essential (primary) hypertension; I48.91 Unspecified atrial fibrillation; E11.9 Type 2 diabetes mellitus without complications; E78.5 Hyperlipidemia, unspecified; E03.9 Hypothyroidism, unspecified; F32.9 Major depressive disorder, single episode, unspecified; Z79.01 Long term (current) use of anticoagulants
CPT/HCPCS: 31500; 36415; 71045; 80048; 80076; 82150; 82550; 82553; 82805; 82962; 83605; 83880; 84145; 84484; 85025; 85610; 85730; 87040 ×2; 87070; 87086; 87088; 87205; 93005; 94002; J0330; J1250; J2250; J3010; J3370; J7030; 81003; 81015; 99291; 99292

== ENCOUNTER 2017-07-22 13:09 | Inpatient (IN) | payer OTHER ==
[2017-07-22 14:49] LABS: Absolute Lymphocytes (CBC) 0.4 K/uL (0.7-4.9); Absolute Monocytes 0.3 K/uL (0.1-1.3); Absolute Neutrophil 9.4 K/uL (1.8-8.0); Basophils % 0.2 % (0-1.3); Eosinophils % 0.2 % (0-4.4); Hematocrit 23.6 % (36.0-45.0); MCH 32.6 pg (27.0-35.0); MCV 98.3 fL (80-100); MPV 9.2 fL (7.6-11.3); Monocytes % 3.4 % (3.3-12.3)
--- NOTE | 2017-07-22 14:51 | RAD REPORT ---
EXAM DESCRIPTION: RAD - Chest Single View - 07/22/2017 2:39 pm CLINICAL HISTORY: Shortness of breath. COMPARISON: 07/10/2017 FINDINGS: Portable technique limits examination quality. Mild interstitial prominence bilaterally is noted. Opacity in the left lung base probably represents a pleural effusion with left lower lobe atelectasis. The heart is mildly enlarged in size. Tortuous t horacic aorta. No displaced fractures.Sternotomy wires noted. IMPRESSION: Mild CHF. Left lung base atelectasis with left pleural effusion, small.
[2017-07-22 14:54] LABS: Protime INR 1.57
[2017-07-22 15:03] LABS: Potassium 3.8 mEq/L (3.6-5.0)
[2017-07-22 15:09] LABS: Albumin 3.1 g/dL (3.2-5.5); Bilirubin Direct 0.3 mg/dL (0-0.2); Bilirubin Total 0.7 mg/dL (0.3-1.2); Magnesium 1.8 mg/dL (1.8-2.5); Protein, Total 6.2 g/dL (6.0-8.3)
[2017-07-22] MEDS ORDERED: FUROSEMIDE 40 MG TABLET ONE (15:42)
[2017-07-22 15:45] LABS: Anisocytosis 1+; Blood Morphology Comment NOTED (NOT SEEN); Platelet Estimate ADEQ
[2017-07-22] MEDS ORDERED: ONDANSETRON 4 MG/2 ML VIAL IV PRN (16:58)
--- NOTE | 2017-07-22 17:01 | EKG ---
Test Date: 2017-07-22 Test Time: 14:36:21 [employer] Agent: MEGHNA MEASUREMENT RESULTS: Intervals: Rate: 93 IN: QRSD: 82 QT: 332 QTc: 412 [place]: P: IN: QRS: 24 T: 221 INTERPRETIVE STATEMENTS: Atrial fibrillation ST & T wave abnormality, consider inferior ischemia Abnormal ECG Compared to ECG 07/10/2017 13:25:09 Possible ischemia now present Incomplete right bundle-branch block no longer present ST (T wave) deviation still present Electronically Signed On 07-22-17 17:00:07 CDT by Smith Fontanez
--- NOTE | 2017-07-22 17:02 | EDPHYS ---
Physician Documentation [facility] Name: Blaire Dunlap Age: 82 yrs Sex: Female : 1935 Arrival Date: 07/22/2017 Time: 13:13 Bed 13 Private MD: ED Physician Abdiel Mendieta HPI: 07/22 14:11 This 82 yrs old Female presents to ER via EMS with complaints of Abnormal Lab snw Results. 14:11 The patient presents with abdominal pain in the epigastric area. Onset: The snw symptoms/episode began/occurred at an unknown time. The symptoms do not radiate. Associated signs and symptoms: Pertinent positives: dark stools. The symptoms are described as crampy. Severity of pain: At its worst the pain was mild. The patient has experienced similar episodes in the past. The patient has been recently seen by a physician: the patient's primary care provider. Daughter, "Whitney" states Dr. Miles sent pt to ED for blood transfusion.. 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 [Active]; DuoNeb 0.5 mg-3 mg(2.5 mg base)/3 mL Inhl nebu q 6hrs prn [Active]; 14:42 alendronate 70 mg Oral tab 1 tab once wkly [Active]; iw 15:01 artificial tears(hypromellose) 0.4 % Opht drop 1 drop three times a day for Dry Eye iw [Active]; potassium chloride 10 mEq Oral TbER once daily [Active]; Bunn 7.5-325 mg Oral tab 1 tab twice a day [Active]; Ultram 50 mg Oral tab 1 tab every 6 hours for Pain [Active]; primidone 50 mg Oral tab twice a day [Active]; acetaminophen 325 mg oral cap 2 tab every 6 hours for Pain [Active]; ferrous sulfate 325 mg (65 mg iron) Oral tab twice a day [Active]; gabapentin 600 mg Oral tab 1 tab 3 times per day [Active]; levothyroxine 100 mcg tab 1 tab once daily [Active]; prednisone 10 mg Oral tab once daily [Active]; Protonix 40 mg Oral TbEC 1 tab once daily [Active]; senna 8.6 mg Oral cap 2 caps once daily [Active]; Zofran (as hydrochloride) 4 mg Oral tab 1 tabs every 6hrs PRN [Active]; B complex-minerals oral 1 tab oral [Active]; Flomax 0.4 mg Oral cp24 1 cap once daily [Active]; Florinef Acetate Oral 0.1 mg daily [Active]; gas ban as needed [Active]; GlycoLax 17 gram/dose Oral powd as needed [Active]; hyoscyamine sulfate 0.125 mg/5 mL Oral elix 5 mL daily [Active]; Lasix 40 mg Oral tab 1 tab 2 times per day [Active]; loratadine 10 mg Oral tab 1 tab once daily [Active]; lorazepam 0.5 mg Oral tab 1 tab nightly [Active]; melatonin 3 mg oral tab 2 tab nightly [Active]; metoprolol tartrate 25 mg Oral tab 1 tab 2 times per day [Active]; - PMHx: 14:09 allergic rhinitis; iw 15:01 Dementia; Atrial Fib; Osteoporosis; Chronic Pancreatitis; Arthritis; CAD; C-diff; iw Hypothyroidism; Hyperlipidemia; Diabetes; 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 - Social history:: Smoking status: Patient/guardian denies using tobacco. - Ebola Screening: : Patient negative for fever greater than or equal to 101.5 degrees Fahrenheit, and additional compatible Ebola Virus Disease symptoms Patient denies exposure to infectious person Patient denies travel to an Ebola-affected area in the 21 days before illness onset No symptoms or risks identified at this time. ROS: 14:10 Eyes: Negative for injury, pain, redness, and discharge, ENT: Negative for injury, snw pain, and discharge, Neck: Negative for injury, pain, and swelling, Cardiovascular: Negative for chest pain, palpitations, and edema, Respiratory: Negative for shortness of breath, cough, wheezing, and pleuritic chest pain. 14:10 Back: Negative for injury and pain, : Negative for injury, bleeding, discharge, and swelling, MS/Extremity: Negative for injury and deformity, Skin: Negative for injury, rash, and discoloration, Neuro: Negative for headache, weakness, numbness, tingling, and seizure. 14:10 Constitutional: Positive for fatigue, malaise. 14:10 Abdomen/GI: Positive for nausea and vomiting, of the epigastric area. Exam: 14:09 Head/Face: Normocephalic, atraumatic. Eyes: Pupils equal round and reactive to light, snw extra-ocular motions intact. Lids and lashes normal. Conjunctiva and sclera are non-icteric and not injected. Cornea within normal limits. Periorbital areas with no swelling, redness, or edema. ENT: Nares patent. No nasal discharge, no septal abnormalities noted. Tympanic membranes are normal and external auditory canals are clear. Oropharynx with no redness, swelling, or masses, exudates, or evidence of obstruction, uvula midline. Mucous membranes moist. Neck: Trachea midline, no thyromegaly or masses palpated, and no cervical lymphadenopathy. Supple, full range of motion without nuchal rigidity, or vertebral point tenderness. No Meningismus. Chest/axilla: Normal chest wall appearance and motion. Nontender with no deformity. No lesions are appreciated. 14:09 Respiratory: Lungs have equal breath sounds bilaterally, clear to auscultation and percussion. No rales, rhonchi or wheezes noted. No increased work of breathing, no retractions or nasal flaring. 14:09 Back: No spinal tenderness. No costovertebral tenderness. Full range of motion. Skin: Warm, dry with normal turgor. Normal color with no rashes, no lesions, and no evidence of cellulitis. MS/ Extremity: Pulses equal, no cyanosis. Neurovascular intact. Full, normal range of motion. Neuro: Awake and alert, GCS 15, oriented to person, place, time, and situation. Cranial nerves II-XII grossly intact. Motor strength 5/5 in all extremities. Sensory grossly intact. Cerebellar exam normal. Normal gait. Psych: Awake, alert, with orientation to person, place and time. Behavior, mood, and affect are within normal limits. 14:09 Constitutional: The patient appears alert, awake, frail, pale. 14:09 Cardiovascular: Rate: tachycardic, Rhythm: irregularly irregular, Pulses: no pulse deficits are appreciated, Heart sounds: normal, Edema: is not appreciated. 14:09 Abdomen/GI: Inspection: abdomen appears normal, Bowel sounds: diminished, Palpation: mild abdominal tenderness, in the epigastric area. Vital Signs: 14:00 BP 122 / 78; Pulse 96; Resp 22; Temp 97.9; Pulse Ox 99% on R/A; Weight 60.33 kg; Height ch 5 ft. 2 in. (157.48 cm); Pain 0/10; 15:06 BP 136 / 81; Pulse 106; Resp 18; Pulse Ox 97% on R/A; Pain 0/10; ch 19:30 BP 102 / 66; Pulse 89; Resp 18; Pulse Ox 99% on 2 lpm NC; Pain 0/10; aa1 14:00 Body Mass Index 24.33 (60.33 kg, 157.48 cm) ch MDM: 13:40 Patient medically screened. ps1 17:01 Data reviewed: vital signs, nurses notes, detention records, lab test result(s), snw EKG, radiologic studies. Data interpreted: Pulse oximetry: on 2L(s) per nasal canula, is 97 %. Interpretation: acceptable. Counseling: I had a detailed discussion with the patient and/or guardian regarding: the historical points, exam findings, and any diagnostic results supporting the discharge/admit diagnosis, the presence of at least one elevated blood pressure reading (>120/80) during this emergency department visit, lab results, radiology results, the need for further work-up and treatment in the hospital. Physician consultation: Annabel Toscano MD was called at 17:02, was contacted at 17:02, regarding admission. 07/22 14:09 Order name: Basic Metabolic Panel; Complete Time: 15:45 snw 07/22 14:09 Order name: BNP; Complete Time: 15:45 snw 07/22 14:09 Order name: CBC with Diff; Complete Time: 15:49 snw 07/22 14:09 Order name: Ckmb; Complete Time: 15:45 snw 07/22 14:09 Order name: CPK; Complete Time: 15:45 snw 07/22 14:09 Order name: LFT's; Complete Time: 15:45 snw 07/22 14:09 Order name: Magnesium; Complete Time: 15:45 snw 07/22 14:09 Order name: PT-INR; Complete Time: 15:45 snw 07/22 14:09 Order name: Ptt, Activated; Complete Time: 15:45 snw 07/22 14:09 Order name: TS; Complete Time: 16:37 snw 07/22 15:45 Order name: Manual Differential; Complete Time: 15:49 EDMS 07/22 17:04 Order name: Urinalysis EDMS 07/22 17:32 Order name: ABO/RH no charge; Complete Time: 17:46 EDMS 07/22 18:19 Order name: Urine Dipstick--Ancillary (enter results) em1 07/22 14:09 Order name: XRAY Chest (1 view); Complete Time: 14:56 snw 07/22 14:09 Order name: EKG; Complete Time: 14:09 snw 07/22 14:09 Order name: Cardiac monitoring; Complete Time: 15:12 snw 07/22 14:09 Order name: EKG - Nurse/Tech; Complete Time: 15:12 snw 07/22 14:09 Order name: IV Saline Lock; Complete Time: 15:12 snw 07/22 14:09 Order name: Labs collected and sent; Complete Time: 15:12 snw 07/22 14:09 Order name: O2 Per Protocol; Complete Time: 15:12 snw 07/22 14:09 Order name: O2 Sat Monitoring; Complete Time: 15:12 snw 07/22 14:09 Order name: Urine Dipstick-Ancillary (obtain specimen); Complete Time: 17:21 snw 07/22 17:04 Order name: CONS Physician Consult EDHI 07/22 17:04 Order name: NPO EDHI Administered Medications: 15:12 Drug: LaSIX 40 mg Route: PO; Disposition: 21:19 Co-signature as Attending Physician, Abdiel Mendieta MD Available for consultation at ps1 all times. . Disposition: 07/22/17 17:01 Hospitalization ordered by Annabel Toscano for Observation. Preliminary diagnosis are Anemia, unspecified, Gastrointestinal bleeding, Unspecified systolic (congestive) heart failure. - Bed requested for Telemetry/MedSurg (observation). - Status is Observation. aa1 - Condition is Stable. - Problem is an acute exacerbation. - Symptoms have worsened. UTI on Admission? No Signatures: Dispatcher [employer] EDMS Gwendolyn Iglesias RN RN Kelley Zamora RN RN aa1 Cassi Ireland, EXTRACTING MACHINE OPERATOR-C EXTRACTING MACHINE OPERATOR-Csnw Netta Quevedo RN RN America Richter RN RN Abdiel Mendieta MD MD ps1 Corrections: (The following items were deleted from the chart) : 13:41 Home Meds: artificial tears(hypromellose) 0.4 % Opht drop three times a day; [facility] 13:42 Home Meds: Vitamin B with Folic Acid daily [Inactive]; [facility] 13:42 Home Meds: bumetanide 0.5 mg Oral tab once daily [Inactive]; [facility] 13:42 Home Meds: dicyclomine 20 mg Oral tab 3 times per day for Chronic Pancreatitis iw [Inactive]; 13:42 Home Meds: Hyoscyamine sulfate 0.125mg every 6 hours PRN for chronic pain iw [Inactive]; : 13:42 Home Meds: Lasix 20 mg Oral tab once daily [Inactive]; [facility] 13:42 Home Meds: Neurontin 600 mg Oral tab 3 times per day [Inactive]; [facility] 13:42 Home Meds: potassium chloride 10 mEq Oral TbER once daily [Inactive]; [facility] 13:42 Home Meds: primidone 50 mg Oral tab twice a day [Inactive]; [facility] 13:42 Home Meds: ranitidine HCl 150 mg Oral cap once daily [Inactive]; [facility] 13:42 Home Meds: Restoril 15 mg Oral cap at bedtime for insomnia [Inactive]; [facility] 13:42 Home Meds: Synthroid 100 mcg Oral tab once daily [Inactive]; [facility] 13:42 Home Meds: tamsulosin 0.4 mg Oral cp24 once daily [Inactive]; iw 13:42 Home Meds: Miralax 17 gram/dose Oral powd once daily for constipation [Inactive]; [facility] 13:42 Home Meds: lisinopril 5 mg Oral tab once daily [Inactive]; iw 13:42 Home Meds: Claritin 10 mg Oral tab 1 tab once daily [Inactive]; [facility] 13:42 Home Meds: Tylenol 325mg 2 tabs every 8 hours PRN [Inactive]; [facility] 13:42 Home Meds: Flonase 50 mcg/actuation nasal spsn 2 sprays 2 times per day iw [Inactive]; 13:42 Home Meds: metoprolol succinate 50 mg Oral Tb24 BID [Inactive]; [facility] 13:42 Home Meds: Silenor 6 mg Oral tab 1 tab once daily [Inactive]; [facility] 13:42 Home Meds: alendronate 70 mg Oral tab 1 tab once wkly [Inactive]; [facility] 13:42 Home Meds: lorazepam 0.5 mg Oral tab 3 times per day for Anxiety [Inactive]; [facility] 13:42 Home Meds: Bunn 10-325 mg Oral tab every 6 hours for Pain [Inactive]; [facility] 13:42 Home Meds: Ultram 50 mg Oral tab every 6 hours for Pain [Inactive]; [facility] 13:42 Home Meds: promethazine 25 mg Oral tab every 6 hours [Inactive]; iw 13:42 Home Meds: ProAir HFA 90 mcg/actuation inhalation HFAA every 4 hours for SOB iw [Inactive]; 13:42 Home Meds: calcium carbonate 600 mg (1,500 mg) Oral tab daily [Inactive]; iw 13:42 Home Meds: Vitamin D Oral 400 unit daily [Inactive]; [facility] 13:42 Home Meds: citalopram 40 mg Oral tab once daily [Inactive]; [facility] 13:42 Home Meds: ferrous sulfate 325 mg (65 mg iron) Oral tab twice a day [Inactive]; [facility] 13:42 Home Meds: hydrocodone-acetaminophen 10-325 mg Oral tab 1 tab every 6 hours iw [Inactive]; 13:42 Home Meds: hyoscyamine sulfate 0.125 mg SL subl twice a day [Inactive]; iw 13:42 Home Meds: ipratropium-albuterol 0.5 mg-3 mg(2.5 mg base)/3 mL Inhl nebu 3 mL 4 iw times per day [Inactive]; 13:42 Home Meds: levothyroxine 100 mcg tab 1 tab once daily [Inactive]; iw 13:42 Home Meds: lorazepam 0.5 mg Oral tab nightly [Inactive]; iw 13:42 Home Meds: melatonin 3 mg Oral tab twice a day [Inactive]; iw 13:42 Home Meds: ondansetron HCl 4 mg Oral tab every 6 hours [Inactive]; iw 13:42 Home Meds: pantoprazole 40 mg Oral TbEC 1 tab once daily [Inactive]; iw 13:42 Home Meds: potassium chloride 10 mEq Oral cpER 1 cap once daily [Inactive]; iw 13:42 Home Meds: primidone 50 mg Oral tab twice a day [Inactive]; iw 13:42 Home Meds: Senokot 8.6 mg Oral tab 2 tabs once daily [Inactive]; iw 13:42 Home Meds: Simethicone Oral every 6 hours [Inactive]; iw 13:42 Home Meds: tamsulosin 0.4 mg Oral cp24 1 cap once daily [Inactive]; iw 13:42 Home Meds: Ultram 50 mg Oral tab 1 tab every 6 hours [Inactive]; iw 13:42 Home Meds: amiodarone 400 mg Oral tab 1 tab twice a day [Inactive]; iw 13:42 Home Meds: Aricept 23 mg Oral tab 1 tab once daily [Inactive]; iw 13:42 Home Meds: Ativan 0.5 mg Oral tab at bedtime [Inactive]; iw 13:42 Home Meds: Bentyl 20 mg Oral tab 3 times per day [Inactive]; iw 13:42 Home Meds: vitamin B-100 once a day [Inactive]; iw 13:42 Home Meds: Claritin 10 mg Oral tab 1 tab once daily [Inactive]; iw 13:42 Home Meds: acetaminophen 650 mg Oral TbER every 6 hrs PRN [Inactive]; iw 13:42 Home Meds: Eliquis 5 mg Oral tab 1 tab 2 times per day [Inactive]; iw 13:42 Home Meds: ferrous sulfate 325 mg (65 mg iron) Oral tab twice a day [Inactive]; [facility] 13:42 Home Meds: fludrocortisone 0.1 mg Oral tab once daily [Inactive]; iw 13:42 Home Meds: fluticasone 50 mcg/actuation nasal spsn 2 sprays to each nostril once iw a day [Inactive]; 13:42 Home Meds: gabapentin 600 mg Oral tab 3 times per day [Inactive]; iw 13:42 Home Meds: hydrocodone-acetaminophen 10-325 mg Oral tab every 6 hrs PRN iw [Inactive]; 13:42 Home Meds: levothyroxine 100 mcg tab once daily [Inactive]; iw 13:42 Home Meds: Levsin 0.125 mg Oral tab once a day [Inactive]; [facility] 13:42 Home Meds: melatonin 3 mg Oral tab administer 2 tabs at bedtime [Inactive]; iw 13:42 Home Meds: Merrem 1 gram intravenous solr every 8 hrs for UTI [Inactive]; iw 13:42 Home Meds: metoprolol tartrate 50 mg Oral tab 2 times per day [Inactive]; iw 13:42 Home Meds: Miralax 17 gram/dose Oral powd once daily [Inactive]; iw 13:42 Home Meds: Natural Balance Tears ophthalmic ophthalmic [Inactive]; iw 13:42 Home Meds: prednisone 10 mg Oral tab once daily [Inactive]; iw 13:42 Home Meds: primidone 50 mg Oral tab twice a day [Inactive]; iw 13:42 Home Meds: Protonix 40 mg Oral TbEC 1 tab once daily [Inactive]; iw 13:42 Home Meds: senna 8.6 mg Oral cap 2 caps once daily [Inactive]; iw 13:42 Home Meds: simethicone 80 mg Oral chew take 2 tabs every 6 hrs PRN for Flatulence iw [Inactive]; 13:42 Home Meds: tamsulosin 0.4 mg Oral cp24 1 cap once daily [Inactive]; iw 13:42 Home Meds: Zofran (as hydrochloride) 4 mg Oral tab every 6hrs PRN [Inactive]; iw 15 13:42 PMHx: Dementia [Inactive]; iw 15 13:42 PMHx: Atrial Fib [Inactive]; iw 15 13:42 PMHx: Osteoporosis [Inactive]; iw 15 13:42 PMHx: Chronic Pancreatitis [Inactive]; iw 15 13:42 PMHx: Arthritis [Inactive]; iw 15 13:42 PMHx: CAD [Inactive]; iw 15: 13:42 PMHx: C-diff [Inactive]; iw 15: 13:42 PMHx: Hypothyroidism [Inactive]; iw 15 13:42 PMHx: Hyperlipidemia [Inactive]; iw 15: 13:42 PMHx: Diabetes [Inactive]; iw 15: 13:42 PMHx: 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 [Inactive]; iw 15: 13:42 PMHx: Chronic pain [Inactive]; iw 15: 13:42 PMHx: Current UTI (ESBL) [Inactive]; iw 15: 13:42 PMHx: Hypertension [Inactive]; iw 15: 13:42 PMHx: GERD [Inactive]; iw 15: 13:42 PMHx: Depression [Inactive]; iw 15: 13:42 PMHx: Anemia [Inactive]; iw 15: 13:42 PMHx: Chronic ischemic heart disease [Inactive]; iw 15: 13:42 PMHx: COPD [Inactive]; ch iw 15: 13:42 PMHx: Anxiety [Inactive]; [facility] 15: 13:42 PMHx: insomnia [Inactive]; [facility] 15: 13:42 PMHx: conversion disorder with seizures or convulsions [Inactive]; [facility] 15: 14:09 PMHx: osteoperosis; [facility] 17:56 17:01 Hospitalization Ordered by Annabel Toscano MD for Observation. Preliminary df diagnosis is Anemia, unspecified; Gastrointestinal bleeding; Unspecified systolic (congestive) heart failure. Bed requested for Telemetry/MedSurg (observation). Status is Observation. Condition is Stable. Problem is an acute exacerbation. Symptoms have worsened. UTI on Admission? No. snw 20:15 17:56 07/22/2017 17:01 Hospitalization Ordered by Annabel Toscano MD for Observation. aa1 Preliminary diagnosis is Anemia, unspecified; Gastrointestinal bleeding; Unspecified systolic (congestive) heart failure. Bed requested for Telemetry/MedSurg (observation). Status is Observation. Condition is Stable. Problem is an acute exacerbation. Symptoms have worsened. UTI on Admission? No. df
--- NOTE | 2017-07-22 17:02 | ER ---
Nurse's Notes [facility] Name: Blaire Dunlap Age: 82 yrs Sex: Female : 1935 Arrival Date: 07/22/2017 Time: 13:13 Bed 13 Private MD: Diagnosis: Anemia, unspecified;Gastrointestinal bleeding;Unspecified systolic (congestive) heart failure Presentation: 07/22 13:14 Presenting complaint: EMS states: pt from [facility], being sent for decrease in [employer] from 7.8 to 7.4. pt aaox4, no complaints. Transition of care: patient was not received from another setting of care. Onset of symptoms was July 22, 2017. Risk Assessment: Do you want to hurt yourself or someone else? Patient reports no desire to harm self or others. Initial Sepsis Screen: Does the patient meet any 2 criteria? No. Patient's initial sepsis screen is negative. Does the patient have a suspected source of infection? No. Patient's initial sepsis screen is negative. Note pt wears 2 L NC all the time. Care prior to arrival:. Care prior to arrival: None. 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 [Active]; DuoNeb 0.5 mg-3 mg(2.5 mg base)/3 mL Inhl nebu q 6hrs prn [Active]; 14:42 alendronate 70 mg Oral tab 1 tab once wkly [Active]; iw 15:01 artificial tears(hypromellose) 0.4 % Opht drop 1 drop three times a day for Dry Eye iw [Active]; potassium chloride 10 mEq Oral TbER once daily [Active]; [place] 7.5-325 mg Oral tab 1 tab twice a day [Active]; Ultram 50 mg Oral tab 1 tab every 6 hours for Pain [Active]; primidone 50 mg Oral tab twice a day [Active]; acetaminophen 325 mg oral cap 2 tab every 6 hours for Pain [Active]; ferrous sulfate 325 mg (65 mg iron) Oral tab twice a day [Active]; gabapentin 600 mg Oral tab 1 tab 3 times per day [Active]; levothyroxine 100 mcg tab 1 tab once daily [Active]; prednisone 10 mg Oral tab once daily [Active]; Protonix 40 mg Oral TbEC 1 tab once daily [Active]; senna 8.6 mg Oral cap 2 caps once daily [Active]; Zofran (as hydrochloride) 4 mg Oral tab 1 tabs every 6hrs PRN [Active]; B complex-minerals oral 1 tab oral [Active]; Flomax 0.4 mg Oral cp24 1 cap once daily [Active]; Florinef Acetate Oral 0.1 mg daily [Active]; gas ban as needed [Active]; GlycoLax 17 gram/dose Oral powd as needed [Active]; hyoscyamine sulfate 0.125 mg/5 mL Oral elix 5 mL daily [Active]; Lasix 40 mg Oral tab 1 tab 2 times per day [Active]; loratadine 10 mg Oral tab 1 tab once daily [Active]; lorazepam 0.5 mg Oral tab 1 tab nightly [Active]; melatonin 3 mg oral tab 2 tab nightly [Active]; metoprolol tartrate 25 mg Oral tab 1 tab 2 times per day [Active]; - PMHx: 14:09 allergic rhinitis; iw 15:01 Dementia; Atrial Fib; Osteoporosis; Chronic Pancreatitis; Arthritis; CAD; C-diff; iw Hypothyroidism; Hyperlipidemia; Diabetes; 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 - Social history:: Smoking status: Patient/guardian denies using tobacco. - Ebola Screening: : Patient negative for fever greater than or equal to 101.5 degrees Fahrenheit, and additional compatible Ebola Virus Disease symptoms Patient denies exposure to infectious person Patient denies travel to an Ebola-affected area in the 21 days before illness onset No symptoms or risks identified at this time. Screenin:07 Abuse screen: Denies threats or abuse. Denies injuries from another. Nutritional ch screening: On bland/soft diet. Tuberculosis screening: No symptoms or risk factors identified. Fall Risk No fall in past 12 months (0 pts). Secondary diagnosis (15 points) IV access (20 points). Ambulatory Aid- Crutches/Cane/Walker (15 pts). Gait- Weak (10 pts.). Mental Status- Overestimates/Forgets Limitations (15 pts.). Total Dial Fall Scale indicates High Risk Score (45 or more points). Fall prevention measures have been instituted. Side Rails Up X 2 Frequent Obs/Assessments Occuring Family Present and informed to notify staff if the need to leave the bedside As available patient and family educated on Fall Prevention Program and Strategies. Assessment: 15:07 General: Appears in no apparent distress. comfortable, Behavior is calm, cooperative, ch appropriate for age. Pain: Denies pain. Neuro: Level of Consciousness is awake, alert, obeys commands, Oriented to person, place, Sort Supervisor are equal bilaterally Moves all extremities. Speech is normal, Facial symmetry appears normal, Facial symmetry: tongue is midline, Pupils are PERRLA, sluggish. Cardiovascular: Heart tones S1 S2 present Capillary refill < 3 seconds in bilateral fingers toes Clubbing of nail beds is absent Patient's skin is warm and dry. Pulses are all present. Edema is absent. Respiratory: Airway is patent Respiratory effort is even, unlabored, Breath sounds are clear bilaterally. GI: No signs and/or symptoms were reported involving the gastrointestinal system. Abdomen is round non-distended, Bowel sounds present X 4 quads. Derm: Skin is fragile, has skin tears on R arm, one on L leg mild Skin is pale. Musculoskeletal: No signs and/or symptoms reported regarding the musculoskeletal system. 16:36 Reassessment: Patient appears in no apparent distress at this time. Patient and/or ch family updated on plan of care and expected duration. Pain level reassessed. Patient is alert, oriented x 3, equal unlabored respirations, skin warm/dry/pink. pt placed on bedpan, stool specimen collected. Guiac positive. 19:48 Reassessment: Patient appears in no apparent distress at this time. Patient is alert, aa1 oriented x 3, equal unlabored respirations, skin warm/dry/pink. Report given to Caitie on 2nd floor. Vital Signs: 14:00 BP 122 / 78; Pulse 96; Resp 22; Temp 97.9; Pulse Ox 99% on R/A; Weight 60.33 kg; Height 5 ft. 2 in. (157.48 cm); Pain 0/10; 15:06 BP 136 / 81; Pulse 106; Resp 18; Pulse Ox 97% on R/A; Pain 0/10; ch 19:30 BP 102 / 66; Pulse 89; Resp 18; Pulse Ox 99% on 2 lpm NC; Pain 0/10; aa1 14:00 Body Mass Index 24.33 (60.33 kg, 157.48 cm) ED Course: 13:13 Patient arrived in ED. ch 13:15 Triage completed. ch 13:18 Abdiel Mendieta MD is Attending Physician. rust 13:19 Gwendolyn Iglesias, JOHANNA is Primary Nurse. ch 14:30 No apparent distress. Resting quietly. ch 14:30 No provider procedures requiring assistance completed. Inserted saline lock: 22 gauge ch in left hand, using aseptic technique. Blood collected. Missed attempt(s): 22 gauge in left forearm. Bleeding controlled, band aid applied, catheter tip intact. 14:38 X-ray completed. Portable x-ray completed in exam room. Patient tolerated procedure jb2 well. 14:38 XRAY Chest (1 view) In Process Unspecified. EDMS 14:42 EKG done, by technology director. reviewed by Abdiel Mendieta MD. at1 14:52 Notified ED physician of a critical lab result(s). hgb 7.8. dm5 15:06 Arm band placed on right wrist. Patient placed in an exam room, on a stretcher, on hall monitor, on pulse oximetry. EKG completed in triage. Results shown to . 15:07 Patient has correct armband on for positive identification. Placed in gown. Bed in low ch position. Call light in reach. Side rails up X 1. Adult w/ patient. desk monitor on. Pulse ox on. NIBP on. Warm blanket given. Repositioned patient. Cleaned of incontinence. Linen changed. 16:02 Cassi Ireland, LEONEL-C [facility]. snw 16:58 Annabel Toscano MD is Hospitalizing Provider. snw 19:50 Patient admitted, IV remains in place. aa1 Administered Medications: 15:12 Drug: LaSIX 40 mg Route: PO; Outcome: 17:01 Decision to Hospitalize by Provider. snw 20:15 Patient left the ED. aa1 Signatures: Dispatcher [employer] EDMS Gwendolyn Iglesias, JOHANNA RN Beverly Jara RN RN dm5 Kelley Zamora RN RN aa1 Cassi Ireland FNP-C SURGICAL TECHNOLOGY INSTRUCTOR-[facility] Keshawn Monroe jb2 Netta Quevedo RN RN Jess schultz, scarfer operator EKG Tat1 Abdiel Mendieta MD MD ps1 Corrections: (The following items were deleted from the chart) 15: 13:41 Home Meds: artificial tears(hypromellose) 0.4 % Opht drop three times a day; [facility] 13:42 Home Meds: Vitamin B with Folic Acid daily [Inactive]; [facility] 13:42 Home Meds: bumetanide 0.5 mg Oral tab once daily [Inactive]; [facility] 13:42 Home Meds: dicyclomine 20 mg Oral tab 3 times per day for Chronic Pancreatitis iw [Inactive]; 13:42 Home Meds: Hyoscyamine sulfate 0.125mg every 6 hours PRN for chronic pain iw [Inactive]; 13:42 Home Meds: Lasix 20 mg Oral tab once daily [Inactive]; [facility] 13:42 Home Meds: Neurontin 600 mg Oral tab 3 times per day [Inactive]; [facility] 13:42 Home Meds: potassium chloride 10 mEq Oral TbER once daily [Inactive]; [facility] :42 Home Meds: primidone 50 mg Oral tab twice a day [Inactive]; [facility] 13:42 Home Meds: ranitidine HCl 150 mg Oral cap once daily [Inactive]; [facility] 13:42 Home Meds: Restoril 15 mg Oral cap at bedtime for insomnia [Inactive]; [facility] 13:42 Home Meds: Synthroid 100 mcg Oral tab once daily [Inactive]; iw 13:42 Home Meds: tamsulosin 0.4 mg Oral cp24 once daily [Inactive]; iw 13:42 Home Meds: Miralax 17 gram/dose Oral powd once daily for constipation [Inactive]; [facility] 13:42 Home Meds: lisinopril 5 mg Oral tab once daily [Inactive]; iw 13:42 Home Meds: Claritin 10 mg Oral tab 1 tab once daily [Inactive]; [facility] 13:42 Home Meds: Tylenol 325mg 2 tabs every 8 hours PRN [Inactive]; iw 13:42 Home Meds: Flonase 50 mcg/actuation nasal spsn 2 sprays 2 times per day iw [Inactive]; 13:42 Home Meds: metoprolol succinate 50 mg Oral Tb24 BID [Inactive]; [facility] 13:42 Home Meds: Silenor 6 mg Oral tab 1 tab once daily [Inactive]; [facility] 13:42 Home Meds: alendronate 70 mg Oral tab 1 tab once wkly [Inactive]; [facility] 13:42 Home Meds: lorazepam 0.5 mg Oral tab 3 times per day for Anxiety [Inactive]; [facility] 13:42 Home Meds: [place] 10-325 mg Oral tab every 6 hours for Pain [Inactive]; [facility] 13:42 Home Meds: Ultram 50 mg Oral tab every 6 hours for Pain [Inactive]; [facility] 13:42 Home Meds: promethazine 25 mg Oral tab every 6 hours [Inactive]; iw 13:42 Home Meds: ProAir HFA 90 mcg/actuation inhalation HFAA every 4 hours for SOB iw [Inactive]; 13:42 Home Meds: calcium carbonate 600 mg (1,500 mg) Oral tab daily [Inactive]; [facility] 13:42 Home Meds: Vitamin D Oral 400 unit daily [Inactive]; iw 13:42 Home Meds: citalopram 40 mg Oral tab once daily [Inactive]; [facility] 13:42 Home Meds: ferrous sulfate 325 mg (65 mg iron) Oral tab twice a day [Inactive]; [facility] : 13:42 Home Meds: hydrocodone-acetaminophen 10-325 mg Oral tab 1 tab every 6 hours iw [Inactive]; 13:42 Home Meds: hyoscyamine sulfate 0.125 mg SL subl twice a day [Inactive]; iw 13:42 Home Meds: ipratropium-albuterol 0.5 mg-3 mg(2.5 mg base)/3 mL Inhl nebu 3 mL 4 iw times per day [Inactive]; 13:42 Home Meds: levothyroxine 100 mcg tab 1 tab once daily [Inactive]; iw 13:42 Home Meds: lorazepam 0.5 mg Oral tab nightly [Inactive]; iw 13:42 Home Meds: melatonin 3 mg Oral tab twice a day [Inactive]; iw 13:42 Home Meds: ondansetron HCl 4 mg Oral tab every 6 hours [Inactive]; iw 13:42 Home Meds: pantoprazole 40 mg Oral TbEC 1 tab once daily [Inactive]; iw 13:42 Home Meds: potassium chloride 10 mEq Oral cpER 1 cap once daily [Inactive]; iw 13:42 Home Meds: primidone 50 mg Oral tab twice a day [Inactive]; iw 13:42 Home Meds: Senokot 8.6 mg Oral tab 2 tabs once daily [Inactive]; iw 13:42 Home Meds: Simethicone Oral every 6 hours [Inactive]; iw 13:42 Home Meds: tamsulosin 0.4 mg Oral cp24 1 cap once daily [Inactive]; iw 13:42 Home Meds: Ultram 50 mg Oral tab 1 tab every 6 hours [Inactive]; iw 13:42 Home Meds: amiodarone 400 mg Oral tab 1 tab twice a day [Inactive]; iw 13:42 Home Meds: Aricept 23 mg Oral tab 1 tab once daily [Inactive]; iw 13:42 Home Meds: Ativan 0.5 mg Oral tab at bedtime [Inactive]; iw 13:42 Home Meds: Bentyl 20 mg Oral tab 3 times per day [Inactive]; iw 13:42 Home Meds: vitamin B-100 once a day [Inactive]; iw 13:42 Home Meds: Claritin 10 mg Oral tab 1 tab once daily [Inactive]; iw 13:42 Home Meds: acetaminophen 650 mg Oral TbER every 6 hrs PRN [Inactive]; iw 13:42 Home Meds: Eliquis 5 mg Oral tab 1 tab 2 times per day [Inactive]; iw 13:42 Home Meds: ferrous sulfate 325 mg (65 mg iron) Oral tab twice a day [Inactive]; [facility] 13:42 Home Meds: fludrocortisone 0.1 mg Oral tab once daily [Inactive]; [facility] 13:42 Home Meds: fluticasone 50 mcg/actuation nasal spsn 2 sprays to each nostril once iw a day [Inactive]; 13:42 Home Meds: gabapentin 600 mg Oral tab 3 times per day [Inactive]; iw 13:42 Home Meds: hydrocodone-acetaminophen 10-325 mg Oral tab every 6 hrs PRN iw [Inactive]; 13:42 Home Meds: levothyroxine 100 mcg tab once daily [Inactive]; iw 13:42 Home Meds: Levsin 0.125 mg Oral tab once a day [Inactive]; iw 13:42 Home Meds: melatonin 3 mg Oral tab administer 2 tabs at bedtime [Inactive]; iw 13:42 Home Meds: Merrem 1 gram intravenous solr every 8 hrs for UTI [Inactive]; iw 13:42 Home Meds: metoprolol tartrate 50 mg Oral tab 2 times per day [Inactive]; iw 13:42 Home Meds: Miralax 17 gram/dose Oral powd once daily [Inactive]; iw 13:42 Home Meds: Natural Balance Tears ophthalmic ophthalmic [Inactive]; iw 13:42 Home Meds: prednisone 10 mg Oral tab once daily [Inactive]; iw 15: 13:42 Home Meds: primidone 50 mg Oral tab twice a day [Inactive]; iw 15 13:42 Home Meds: Protonix 40 mg Oral TbEC 1 tab once daily [Inactive]; iw 15: 13:42 Home Meds: senna 8.6 mg Oral cap 2 caps once daily [Inactive]; iw 15: 13:42 Home Meds: simethicone 80 mg Oral chew take 2 tabs every 6 hrs PRN for Flatulence iw [Inactive]; 15: 13:42 Home Meds: tamsulosin 0.4 mg Oral cp24 1 cap once daily [Inactive]; iw 15 13:42 Home Meds: Zofran (as hydrochloride) 4 mg Oral tab every 6hrs PRN [Inactive]; iw 15: 13:42 PMHx: Dementia [Inactive]; iw 15: 13:42 PMHx: Atrial Fib [Inactive]; iw 15 13:42 PMHx: Osteoporosis [Inactive]; iw 15: 13:42 PMHx: Chronic Pancreatitis [Inactive]; iw 15: 13:42 PMHx: Arthritis [Inactive]; iw 15: 13:42 PMHx: CAD [Inactive]; iw 15: 13:42 PMHx: C-diff [Inactive]; iw 15: 13:42 PMHx: Hypothyroidism [Inactive]; iw 15: 13:42 PMHx: Hyperlipidemia [Inactive]; iw 15: 13:42 PMHx: Diabetes [Inactive]; iw 15: 13:42 PMHx: 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 [Inactive]; iw 15: 13:42 PMHx: Chronic pain [Inactive]; iw 15: 13:42 PMHx: Current UTI (ESBL) [Inactive]; iw 15: 13:42 PMHx: Hypertension [Inactive]; iw 15: 13:42 PMHx: GERD [Inactive]; iw 15: 13:42 PMHx: Depression [Inactive]; iw 15: 13:42 PMHx: Anemia [Inactive]; iw 15: 13:42 PMHx: Chronic ischemic heart disease [Inactive]; iw 13:42 PMHx: COPD [Inactive]; iw : PMHx: Anxiety [Inactive]; iw : PMHx: insomnia [Inactive]; iw : PMHx: conversion disorder with seizures or convulsions [Inactive]; iw 14:09 PMHx: osteoperosis; iw
--- NOTE | 2017-07-22 17:47 | P.HP ---
Certification for Inpatient Patient admitted to: Observation With expected LOS: <2 Midnights Patient will require the following post-hospital care: None Practitioner: I am a practitioner with admitting privileges, knowledge of patient current condition, hospital course, and medical plan of care. Services: Services provided to patient in accordance with Admission requirements found in Title 42 Section 412.3 of the Code of Federal Regulations Patient History Date of Service: 07/22/17 Primary Care Provider: OOT Reason for admission: Acute blood loss Anemia History of Present Illness: This is a 82-year-old female with significant past medical history of CHF, COPD , AFib on chronic anti coagulation, GI ulcer, [facility] her hemoglobin was found to be 7.8. Patient stated that she has been having some dark tarry stools x2 days at the facility and thus this admission checked her hemoglobin level which was found to be 7.8 which is down 3 points from 11.2 in about a week ago. Patient stated that she does not have any other associated symptoms with this. Denies having any shortness of breath , dizziness or chest pain at this time. Patient has been seen by GI in the past and has a EGD done with your she was found to have gastritis and gastric ulcer. Patient was also recently admitted to the hospital for extensive period of time for CHF exacerbation and hyponatremia was recently discharged to a alf facility for rehab. She was doing well overall there however because of her hemoglobin drop she was transferred back to the hospital for further care. Patient does take Eliquis for her atrial fibrillation and has been on 5 mg b.i.d. Allergies No Known Allergies Allergy (Unverified 12/12/11 13:27) Home Medications: Acetaminophen [Tylenol] 322 tab PO DAILY PRN 06/24/17 Alendronate Sodium 70 mg PO SEECOM 06/24/17 Dextran 70/Hypromellose [Natural Balance Tears Eye Drop] 15 ml OP Q8H PRN Donepezil HCl [Aricept] 23 mg PO DAILY 06/24/17 Gabapentin [Neurontin*] 600 mg PO TID 06/24/17 Hydrocodone Bit/Acetaminophen [Hydrocodon-Acetaminophn 10-325] 1 each PO Q6H PRN 06/24/17 Hyoscyamine Sulfate [Levsin TAB*] 0.125 mg PO Q6HP PRN 06/24/17 Ipratropium/Albuterol Sulfate [Iprat-Albut 0.5-3(2.5) mg/3 ml] 3 ml IH Q6HP PRN 06/24/17 Levothyroxine Sodium [Unithroid] 100 mcg PO DAILY 06/24/17 Lorazepam [Ativan*] 0.5 mg PO BEDTIME PRN 06/24/17 Melatonin/Pyridoxine HCl (B6) [Melatonin 3 mg Tablet] 2 each PO BEDTIME Menthol [Biofreeze] 118 ml TP Q12H PRN 06/24/17 Metoprolol Succinate 50 mg PO BID 06/24/17 Ondansetron [Zofran (Odt)*] 4 mg PO Q6H PRN 06/24/17 Pantoprazole Sodium [Protonix] 40 mg PO DAILY 06/24/17 Polyethylene Glycol 3350 [Miralax] 17 gm PO DAILY PRN 06/24/17 Primidone [Mysoline *] 50 mg PO BID 06/24/17 Sennosides [Natural Vegetable Laxative] 8.6 mg PO DAILY PRN 06/24/17 Simethicone [Mylicon*] 2 tab PO Q6HP PRN 06/24/17 Tamsulosin [Flomax*] 0.4 mg PO BEDTIME 06/24/17 Tramadol HCl [Ultram] 50 mg PO Q6HP PRN 06/24/17 Tramadol HCl [Ultram] 100 mg PO Q6HP PRN 06/24/17 Vitamin B Complex 100 No.2 [B-100 Complex] 1 tab PO DAILY 06/24/17 Amiodarone HCl [Cordarone*] 400 mg PO BID #120 tab 07/04/17 Apixaban [Eliquis] 5 mg PO BID #60 tablet 07/04/17 Fludrocortisone [Florinef *] 0.1 mg PO DAILY #30 tab 07/04/17 Meropenem [Merrem 1 GM/100 ML NS IVPB] 1 gm IV Q8HR #42 bag 07/04/17 Prednisone [Deltasone*] 10 mg PO BID #60 tab 07/04/17 - Past Medical/Surgical History Diabetic: No -: Atrial Fibrillation -: CAD -: Anuerysm Repair - Family History Dad Notes: no significant hx as claimed Mom Notes: no significant hx as claimed - Social History Alcohol use: No CD- Drugs: No Caffeine use: No Review of Systems General: As per HPI Physical Examination - Physical Exam General: Alert, In no apparent distress HEENT: Atraumatic Neck: Supple, 2+ carotid pulse no bruit, No LAD, Without JVD or thyroid abnormality Respiratory: Normal air movement, Crackles/rales Cardiovascular: Regular rate/rhythm, Normal S1 S2 Gastrointestinal: Normal bowel sounds, No tenderness Musculoskeletal: No tenderness Integumentary: No rashes Neurological: Normal speech, Normal strength at 5/5 x4 extr, Normal tone Lymphatics: No axilla or inguinal lymphadenopathy - Studies Laboratory Data (last 24 hrs) 07/22/17 14:33: PT 18.6 H, INR 1.57, APTT 26.4 07/22/17 14:33: WBC 10.2, Hgb 7.8 L*, Hct 23.6 L, Plt Count 279 07/22/17 14:33: B-Natriuretic Peptide 314 H 07/22/17 14:33: Sodium 133 L, Potassium 3.8, BUN 31 H, Creatinine 1.04 H, Glucose 194 H, Magnesium 1.8, Total Bilirubin 0.7, AST 47 H, ALT 40, Alkaline Phosphatase 78 Assessment and Plan - Problems (Diagnosis) (1) Anemia Current Visit: Yes Status: Acute Plan: Acute Blood Loss Anemia with Hgb of 7.8 and Stool Occult + and Dark tarry stool x 2 in the NH -PPI ggt and Hold eliquis for now -GI consulted. Reccs Awaiting -Pt high risk for any surgical intervention. Educated patient and family on condition -H/h q6h and transfuse if < 7.0 Qualifiers: Anemia type: iron deficiency Iron deficiency anemia type: chronic blood loss Qualified Code(s): D50.0 - Iron deficiency anemia secondary to blood loss (chronic) (2) Afib Current Visit: Yes Status: Acute Plan: Chronic Afib -Currenlty on BB and eliquis -Will restart BB and hold eliquis in lieu of GI bleed -Cardiology consulted. Qualifiers: Atrial fibrillation type: chronic Qualified Code(s): I48.2 - Chronic atrial fibrillation (3) CHF (congestive heart failure) Onset Date: 06/25/17 Current Visit: No Status: Acute Plan: Continue on Home medication -IV protonix with caution to avoid volume overload Qualifiers: Heart failure type: combined systolic and diastolic Heart failure chronicity: chronic Qualified Code(s): I50.42 - Chronic combined systolic ( congestive) and diastolic (congestive) heart failure (4) COPD (chronic obstructive pulmonary disease) Onset Date: 06/25/17 Current Visit: No Status: Chronic Plan: Duonebs, steriods and Oxygen as needed Qualifiers: COPD type: unspecified COPD Qualified Code(s): J44.9 - Chronic obstructive pulmonary disease, unspecified (5) Dementia Onset Date: 06/25/17 Current Visit: No Status: Chronic Plan: Stable. Restart Home medication Qualifiers: Dementia type: Alzheimer's disease Alzheimer's disease onset: other onset Dementia behavioral disturbance: without behavioral disturbance Qualified Code(s): G30.8 - Other Alzheimer's disease; F02.80 - Dementia in other diseases classified elsewhere without behavioral disturbance (6) Diabetes Onset Date: 06/25/17 Current Visit: No Status: Chronic Plan: ISS Qualifiers: Diabetes mellitus type: type 2 Diabetes mellitus custodial insulin use: without parts counterman use Diabetes mellitus complication status: without complication Qualified Code(s): E11.9 - Type 2 diabetes mellitus without complications (7) GERD (gastroesophageal reflux disease) Onset Date: 06/25/17 Current Visit: No Status: Chronic Plan: On Protonix ggt Qualifiers: Esophagitis presence: with esophagitis Qualified Code(s): K21.0 - Gastro- esophageal reflux disease with esophagitis (8) Hyperlipidemia Onset Date: 06/25/17 Current Visit: No Status: Chronic Plan: Restart Home medication Qualifiers: Hyperlipidemia type: unspecified Qualified Code(s): E78.5 - Hyperlipidemia , unspecified (9) Hypothyroidism Onset Date: 06/25/17 Current Visit: No Status: Chronic Plan: Restart Home medication Qualifiers: Hypothyroidism type: acquired Qualified Code(s): E03.9 - Hypothyroidism, unspecified (10) Hyponatremia Onset Date: 06/25/17 Current Visit: No Status: Chronic Plan: Secondary to Adrenal Insuffiency -Start on Steroids home dose Discharge Plan: Correction Plan to discharge in: 48 Hours - Advance Directives Does patient have a Living Will: No Does patient have a Durable POA for Healthcare: No - Code Status/Comfort Care Code Status Assessed: Yes Critical Care: No
[2017-07-22] MEDS: OCTREOTIDE 500 MCG in NA CHLORIDE 0.9% 500 ML IV SCH (20:52)
[2017-07-22] MEDS: PANTOPRAZOLE INJ 80 MG in NA CHLORIDE 0.9% 250 ML IV SCH (20:52)
[2017-07-22 21:18] LABS: Hematocrit 22.8 % (36.0-45.0)
[2017-07-22 23:03] LABS: Urine Blood NEGATIVE (NEG); Urine Glucose NEGATIVE (NEG); Urine Protein NEGATIVE (NEG)
[2017-07-23 02:15] LABS: Hematocrit 23.8 % (36.0-45.0)
[2017-07-23] MEDS: PANTOPRAZOLE INJ 80 MG in NA CHLORIDE 0.9% 250 ML IV SCH ×2 (04:21→14:14)
[2017-07-23 05:21] LABS: Absolute Lymphocytes (CBC) 1.4 K/uL (0.7-4.9); Absolute Monocytes 0.7 K/uL (0.1-1.3); Absolute Neutrophil 6.5 K/uL (1.8-8.0); Basophils % 0.5 % (0-1.3); Hematocrit 23.7 % (36.0-45.0); Lymphocytes % 15.9 % (15.3-44.8); MCH 33.4 pg (27.0-35.0); MPV 9.5 fL (7.6-11.3); Monocytes % 7.8 % (3.3-12.3); RBC Red Blood Cell Count 2.42 M/uL (3.86-4.86)
[2017-07-23 05:39] LABS: Albumin 2.9 g/dL (3.2-5.5); Bilirubin Total 1.2 mg/dL (0.3-1.2); Protein, Total 5.6 g/dL (6.0-8.3)
[2017-07-23 05:46] LABS: Potassium 4.3 mEq/L (3.6-5.0)
[2017-07-23] MEDS ORDERED: MAGNESIUM SULFATE 1 gm IVPB 1 GM/100 ML BAG IV ONE (05:52)
[2017-07-23 09:02] LABS: Hematocrit 23.3 % (36.0-45.0)
[2017-07-23] MEDS: OCTREOTIDE 500 MCG in NA CHLORIDE 0.9% 500 ML IV SCH ×2 (09:05→18:52)
[2017-07-23] MEDS: ACETAMINOPHEN 500 MG TAB PO PRN ×2 (09:06→20:25)
[2017-07-23] MEDS ORDERED: FLUDROCORTISONE 0.1 MG TAB PO PRN (10:33)
--- NOTE | 2017-07-23 11:46 | P.PN ---
Subjective Date of Service: 07/23/17 Primary Care Provider: TED Chief Complaint: Acute blood loss Anemia Patient seen and examined at bedside with RN. Chart reviewed. Case discussed with GI and cardiology. Currently patient has no complaints to offer. States that she feels much better. No episode of dark tarry stools overnight. No nausea and vomiting noted. Review of Systems General: As per HPI Physical Examination - Vital Signs Temperature: 98.2 F Blood Pressure: 112/60 Pulse: 60 Respirations: 16 Pulse Ox (%): 95 - Physical Exam General: Alert, In no apparent distress, Oriented x3, Other (Pale) HEENT: Atraumatic Neck: Supple, JVD distended Respiratory: Normal air movement, Crackles/rales Cardiovascular: Regular rate/rhythm, Normal S1 S2 Gastrointestinal: Normal bowel sounds, Soft and benign, Non-distended, No tenderness Musculoskeletal: No tenderness Integumentary: No rashes Neurological: Normal speech, Normal tone, Normal affect Lymphatics: No axilla or inguinal lymphadenopathy - Studies Laboratory Data (last 24 hrs) 07/22/17 14:33: PT 18.6 H, INR 1.57, APTT 26.4 07/22/17 14:33: WBC 10.2, Hgb 7.8 L*, Hct 23.6 L, Plt Count 279 07/22/17 14:33: B-Natriuretic Peptide 314 H 07/22/17 14:33: Sodium 133 L, Potassium 3.8, BUN 31 H, Creatinine 1.04 H, Glucose 194 H, Magnesium 1.8, Total Bilirubin 0.7, AST 47 H, ALT 40, Alkaline Phosphatase 78 Medications List Reviewed: Yes Assessment & Plan - Problems (Diagnosis) (1) Anemia Onset Date: 07/23/17 Current Visit: Yes Status: Acute Plan: Acute Blood Loss Anemia with Hgb of 7.8 in ED and Stool Occult + and Dark tarry stool x 2 in the NH. -Protonix and octreotide ggt and Stop Eliquis now. -GI consulted. Reccs Awaiting -Pt high risk for any surgical intervention. Educated patient and family on condition -H/H q6h and transfuse if < 7.0 Qualifiers: Anemia type: iron deficiency Iron deficiency anemia type: chronic blood loss Qualified Code(s): D50.0 - Iron deficiency anemia secondary to blood loss (chronic) (2) Afib Onset Date: 07/23/17 Current Visit: Yes Status: Chronic Plan: Chronic Afib -Currenlty on BB and eliquis -Will restart BB and Stop eliquis forever in lieu of recurrent GI bleed per cardiology reccs -ASA for Anticoagulation only. Will start in 48 hrs. -Cardiology consulted. Qualifiers: Atrial fibrillation type: chronic Qualified Code(s): I48.2 - Chronic atrial fibrillation (3) CHF (congestive heart failure) Onset Date: 06/25/17 Current Visit: No Status: Chronic Plan: Continue on Home medication -IV protonix with caution to avoid volume overload Qualifiers: Heart failure type: combined systolic and diastolic Heart failure chronicity: chronic Qualified Code(s): I50.42 - Chronic combined systolic ( congestive) and diastolic (congestive) heart failure (4) COPD (chronic obstructive pulmonary disease) Onset Date: 06/25/17 Current Visit: No Status: Chronic Plan: Duonebs, steriods and Oxygen as needed Qualifiers: COPD type: unspecified COPD Qualified Code(s): J44.9 - Chronic obstructive pulmonary disease, unspecified (5) Dementia Onset Date: 06/25/17 Current Visit: No Status: Chronic Plan: Stable. Restart Home medication Qualifiers: Dementia type: Alzheimer's disease Alzheimer's disease onset: other onset Dementia behavioral disturbance: without behavioral disturbance Qualified Code(s): G30.8 - Other Alzheimer's disease; F02.80 - Dementia in other diseases classified elsewhere without behavioral disturbance (6) Diabetes Onset Date: 06/25/17 Current Visit: No Status: Chronic Plan: ISS Qualifiers: Diabetes mellitus type: type 2 Diabetes mellitus custodial insulin use: without custodial use Diabetes mellitus complication status: without complication Qualified Code(s): E11.9 - Type 2 diabetes mellitus without complications (7) GERD (gastroesophageal reflux disease) Onset Date: 06/25/17 Current Visit: No Status: Chronic Plan: On Protonix ggt Qualifiers: Esophagitis presence: with esophagitis Qualified Code(s): K21.0 - Gastro- esophageal reflux disease with esophagitis (8) Hyperlipidemia Onset Date: 06/25/17 Current Visit: No Status: Chronic Plan: Restart Home medication Qualifiers: Hyperlipidemia type: unspecified Qualified Code(s): E78.5 - Hyperlipidemia , unspecified (9) Hypothyroidism Onset Date: 06/25/17 Current Visit: No Status: Chronic Plan: Restart Home medication Qualifiers: Hypothyroidism type: acquired Qualified Code(s): E03.9 - Hypothyroidism, unspecified (10) Hyponatremia Onset Date: 06/25/17 Current Visit: No Status: Chronic 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
[2017-07-23] MEDS: GABAPENTIN 300 MG CAP PO SCH ×2 (14:15→20:24)
--- NOTE | 2017-07-23 17:22 | CON ---
Date of Consultation: 07/23/2017 Reason For Consultation: Increasing anemia. History Of Present Illness: Ms. Dunlap is an 82-year-old female, who has severe COPD, recent hospit al admission to ICU. She came to the hospital with increasing weakness and shortness of breath. How ever, the patient does not clearly know exactly what brought her to the hospital. She was found to b e very anemic with hemoglobin and hematocrit in the range of 7.8 and 23, Also has decreased albumin. As a result, she got admitted in the hospital. GI bleeding has been suspected, however, no workup could be done because of her severe compromise and comorbidities. As far as the patient is concerned, she denies any abdominal pain, any hematemesis, melena, or hemato chezia. She is hungry. She wants to eat. Past Medical History: In addition to above, history of hypertension questionable history of diabetes . Past Surgical History: Unknown. Family History: Denies any gastrointestinal malignancy in the family. Social History: No alcohol, tobacco. Psychiatric History: None. Allergies: REVIEWED IN THE CHART. Medications: Reviewed in the chart. Review of Systems: General: Slow weight loss poor appetite. No travel no antibiotic recently. GI: As elaborated above. Hepatologic: Denies any history of jaundice, hepatitis, any other liver issues. Pulmonary: Positive for chronic shortness of breath, cough without any expectoration. Cardiac: Palpitation, occasional dizziness, and weakness. Genitourinary: Occasional urinary incontinence. Neuropsychiatric: None. Neuroendocrine: None. Musculoskeletal: Extremely weak and only can ambulate with help. Physical Examination: General: Elderly female, appears to be quite pale. Hemodynamic and respiratory profile at this time within acceptable range. HEENT: Atraumatic, normocephalic. No icterus, however, bilateral pallor noted. Oropharyngeal area looks pale. Neck: Supple. No lymphadenopathy. Trachea central in position. Chest: Clear to auscultation and percussion. Cardiovascular: S1, S2 is irregular and accentuated. Abdomen: Soft, nontender, nondistended. Excellent bowel sounds in all quadrants. Abdomen is scapho id. No hepatomegaly, no splenomegaly. No succussion splash Neurologic: Alert and oriented x2 to 3, sometimes fluctuates. Can move all her extremities with sluggishness. Dermatologic: generalized pallor. Some bruises on the upper extremity from IV attempt. Diagnostic Data: Reviewed and analyzed, as noted above. Impression, Plan, And Recommendation: Ms. Dunlap is an 82-year-old female with history of severe ch ronic obstructive pulmonary disease, anemia, suspected gastrointestinal bleeding, also hypoalbuminemi a that will indicate some degree of gastrointestinal bleeding versus malnutrition. She will ultimately need an EGD. However, she needs anesthesia clearance in advance because of high morbidity issues involved. I have discussed with the patient regarding the indications, contraindications, possible complication s, alternatives of upper GI endoscopy along with anesthesia use and high risk. She is willing to do it if anesthesia clears it. We will write an anesthesia consult and wait for their feedback, in the meanwhile, treat her with PPI, serial hemoglobin and hematocrit, transfuse as needed, and other general measures. Overall her ASA classification at this time, 3, could be 4. GLORIA/BOBBY Voice ID: [id number] Report ID: [id number]
[2017-07-23] MEDS: FUROSEMIDE 40 MG TABLET PO SCH (18:52)
[2017-07-23] MEDS: LORAZEPAM 0.5 MG TABLET PO SCH (20:23)
[2017-07-23] MEDS: METOPROLOL XL 25 MG TAB PO SCH (20:23)
[2017-07-23] MEDS: PRIMIDONE 50 MG TAB PO SCH (20:23)
[2017-07-23] MEDS: DONEPEZIL HCL 5 MG TAB PO SCH (20:24)
[2017-07-23] MEDS: FERROUS SULFATE 325 MG TAB PO SCH (20:24)
[2017-07-23] MEDS: MELATONIN 3 MG TABLET PO SCH (20:25)
[2017-07-23] MEDS ORDERED: TEMAZEPAM 15 MG CAP PO ONE (21:50)
--- NOTE | 2017-07-23 23:28 | CON ---
Date of Consultation: 07/23/[address] Toscano's service on 07/22/2017. The patient was seen by me on 07/23/2017. Reason For Consultation: Atrial fibrillation, congestive heart failure and GI bleed. History Of Present Illness: Ms. Dunlap is an 82-year-old woman with history of coronary artery dise ase, atrial fibrillation, dementia, chronic pancreatitis, C. difficile history, hypertension, dyslipi demia, cerebrovascular accident. She also has a history of seizure disorder, anxiety, COPD, and anem ia. Came in with hemoglobin of 7.8, GI bleed. She is on Eliquis. Chest x-ray showed mild CHF. Ech ocardiogram showed an ejection fraction of 35% approximately a week ago. EKG showed rapid atrial fib rillation. Allergies: NONE. Review of Systems: Negative. Social History: Negative. Family History: Noncontributory. Medications: Include , Protonix, prednisone and metoprolol. Physical Examination: General: She appeared to be in no acute distress. She was in atrial fibrillation Vital Signs: Rate of about 110, afebrile. HEENT: Negative. Neck: Supple with no bruit. Chest: Clear. Cardiac: Revealed atrial fibrillation. Abdomen: Benign. Extremities: Revealed 1+ edema. Diagnostic Data: As stated earlier. Impression And Plan: 1.The patient with atrial fibrillation, rapid use aspirin eventually, but for now, I will not use aspirin and I will definitely discontinue the Eliquis. GI consultation is recommended. 2.Mild exacerbation, acute of chronic systolic congestive heart failure. She may need some diuresis , but if she gets any blood products, she will need some Lasix along with that. 3.Status post abdominal aortic aneurysm repair, stable. 4.Chronic obstructive pulmonary disease. 5.Anxiety. 6.Seizure disorder. 7.Depression. 8.Hypertension, stable. 9.Deep venous thrombosis, stable. 10.Dyslipidemia, stable. 11.Dementia. 12. coronary artery disease. 13. history of chronic pancreatitis. Family history of C. difficile in the past. Again I would DC the Eliquis, not use aspirin from GI. Increase beta-aki, Lasix with transfusion. We w ill follow her along. No further cardiac workup at this point. Case was discussed with Dr. Toscano. SHAILA/BOBBY Voice ID: [id number] Report ID: [id number]
[2017-07-24] MEDS: PANTOPRAZOLE INJ 80 MG in NA CHLORIDE 0.9% 250 ML IV SCH ×3 (00:32→20:19)
[2017-07-24] MEDS: OCTREOTIDE 500 MCG in NA CHLORIDE 0.9% 500 ML IV SCH ×4 (00:32→20:22)
[2017-07-24 05:19] LABS: Absolute Lymphocytes (CBC) 1.3 K/uL (0.7-4.9); Absolute Monocytes 0.6 K/uL (0.1-1.3); Absolute Neutrophil 4.4 K/uL (1.8-8.0); Basophils % 0.7 % (0-1.3); Eosinophils % 2.2 % (0-4.4); Hematocrit 23.5 % (36.0-45.0); Lymphocytes % 19.6 % (15.3-44.8); MCH 33.3 pg (27.0-35.0); MPV 9.1 fL (7.6-11.3); Monocytes % 9.1 % (3.3-12.3); RBC Red Blood Cell Count 2.39 M/uL (3.86-4.86)
[2017-07-24 05:36] LABS: Albumin 2.7 g/dL (3.2-5.5); Bilirubin Total 0.8 mg/dL (0.3-1.2); Magnesium 1.9 mg/dL (1.8-2.5); Potassium 3.9 mEq/L (3.6-5.0); Protein, Total 5.4 g/dL (6.0-8.3)
[2017-07-24] MEDS ORDERED: POTASSIUM 25 MEQ EFFERV TAB PO ONE (05:56)
[2017-07-24] MEDS: LEVOTHYROXINE SOD 0.1 MG TAB PO SCH (06:28)
[2017-07-24] MEDS: ACETAMINOPHEN 500 MG TAB PO PRN ×2 (06:30→10:07)
[2017-07-24] MEDS: FUROSEMIDE 40 MG TABLET PO SCH ×3 (09:00→18:13)
[2017-07-24] MEDS: HYOSCYAMINE SULF 0.125 MG TAB PO SCH (10:05)
[2017-07-24] MEDS: GABAPENTIN 300 MG CAP PO SCH ×3 (10:05→20:20)
[2017-07-24] MEDS: METOPROLOL XL 25 MG TAB PO SCH ×2 (10:05→20:19)
[2017-07-24] MEDS: PRIMIDONE 50 MG TAB PO SCH ×2 (10:05→20:21)
[2017-07-24] MEDS: CALCIUM CARBONATE 500 MG TAB PO SCH (10:05)
[2017-07-24] MEDS: FERROUS SULFATE 325 MG TAB PO SCH ×2 (10:07→20:20)
[2017-07-24] MEDS: TAMSULOSIN 0.4 MG SR CAP PO SCH (10:07)
[2017-07-24] MEDS: LORATADINE 10 MG TAB PO SCH (10:07)
[2017-07-24] MEDS: predniSONE 10 MG TAB PO SCH (10:07)
[2017-07-24] MEDS: CITALOPRAM 10 MG TABLET PO SCH (10:07)
[2017-07-24] MEDS: DONEPEZIL HCL 5 MG TAB PO SCH ×2 (10:07→20:20)
[2017-07-24] MEDS: VITAMIN B COMPLEX 1 CAP PO SCH (10:17)
--- NOTE | 2017-07-24 13:49 | P.PN ---
Subjective Date of Service: 07/24/17 Primary Care Provider: TED Chief Complaint: Acute blood loss Anemia Patient seen and examined at bedside with RN. Chart reviewed. Case discussed with GI and cardiology. Currently patient has no complaints to offer. States that she feels much better. No episode of dark tarry stools overnight. No nausea and vomiting noted. Currently Awaiting Consult from Anesthesia to clear her for EGD Review of Systems General: As per HPI Physical Examination - Vital Signs Temperature: 98.5 F Blood Pressure: 120/76 Pulse: 87 Respirations: 17 Pulse Ox (%): 99 - Physical Exam General: Alert, In no apparent distress HEENT: Atraumatic, PERRLA, EOMI Neck: Supple, JVD not distended Respiratory: Clear to auscultation bilaterally, Normal air movement Cardiovascular: Normal S1 S2, Irregular heart rate/rhythm Gastrointestinal: Normal bowel sounds, No tenderness Musculoskeletal: No tenderness Integumentary: No rashes Neurological: Normal speech, Normal tone, Normal affect Lymphatics: No axilla or inguinal lymphadenopathy - Studies Medications List Reviewed: Yes Assessment & Plan - Problems (Diagnosis) (1) Anemia Onset Date: 07/23/17 Current Visit: Yes Status: Acute Plan: Acute Blood Loss Anemia with Hgb of 7.8 in ED and Stool Occult + and Dark tarry stool x 2 in the NH. -hemoglobin up to 8.1 today -Protonix and octreotide ggt and Stop Eliquis now. -GI consulted. Reccs anesthesia clearance before surgery -Pt high risk for any surgical intervention. Educated patient and family on condition -H/H q6h and transfuse if < 7.0 Qualifiers: Anemia type: iron deficiency Iron deficiency anemia type: chronic blood loss Qualified Code(s): D50.0 - Iron deficiency anemia secondary to blood loss (chronic) (2) Afib Onset Date: 07/23/17 Current Visit: Yes Status: Chronic Plan: Chronic Afib -Currenlty on BB and eliquis -Will restart BB and Stop eliquis forever in lieu of recurrent GI bleed per cardiology reccs -ASA for Anticoagulation only. Will start in 48 hrs. -Cardiology consulted. Qualifiers: Atrial fibrillation type: chronic Qualified Code(s): I48.2 - Chronic atrial fibrillation (3) CHF (congestive heart failure) Onset Date: 06/25/17 Current Visit: No Status: Chronic Plan: Continue on Home medication -IV protonix with caution to avoid volume overload Qualifiers: Heart failure type: combined systolic and diastolic Heart failure chronicity: chronic Qualified Code(s): I50.42 - Chronic combined systolic ( congestive) and diastolic (congestive) heart failure (4) COPD (chronic obstructive pulmonary disease) Onset Date: 06/25/17 Current Visit: No Status: Chronic Plan: Duonebs, steriods and Oxygen as needed Qualifiers: COPD type: unspecified COPD Qualified Code(s): J44.9 - Chronic obstructive pulmonary disease, unspecified (5) Dementia Onset Date: 06/25/17 Current Visit: No Status: Chronic Plan: Stable. Restart Home medication Qualifiers: Dementia type: Alzheimer's disease Alzheimer's disease onset: other onset Dementia behavioral disturbance: without behavioral disturbance Qualified Code(s): G30.8 - Other Alzheimer's disease; F02.80 - Dementia in other diseases classified elsewhere without behavioral disturbance (6) Diabetes Onset Date: 06/25/17 Current Visit: No Status: Chronic Plan: ISS Qualifiers: Diabetes mellitus type: type 2 Diabetes mellitus termite exterminator insulin use: without termite exterminator use Diabetes mellitus complication status: without complication Qualified Code(s): E11.9 - Type 2 diabetes mellitus without complications (7) GERD (gastroesophageal reflux disease) Onset Date: 06/25/17 Current Visit: No Status: Chronic Plan: On Protonix ggt Qualifiers: Esophagitis presence: with esophagitis Qualified Code(s): K21.0 - Gastro- esophageal reflux disease with esophagitis (8) Hyperlipidemia Onset Date: 06/25/17 Current Visit: No Status: Chronic Plan: Restart Home medication Qualifiers: Hyperlipidemia type: unspecified Qualified Code(s): E78.5 - Hyperlipidemia , unspecified (9) Hypothyroidism Onset Date: 06/25/17 Current Visit: No Status: Chronic Plan: Restart Home medication Qualifiers: Hypothyroidism type: acquired Qualified Code(s): E03.9 - Hypothyroidism, unspecified (10) Hyponatremia Onset Date: 06/25/17 Current Visit: No Status: Chronic 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
[2017-07-24] MEDS: MELATONIN 3 MG TABLET PO SCH (20:19)
[2017-07-24] MEDS: LORAZEPAM 0.5 MG TABLET PO SCH (20:20)
[2017-07-25] MEDS: ACETAMINOPHEN 500 MG TAB PO PRN (02:21)
[2017-07-25 04:58] LABS: Absolute Lymphocytes (CBC) 1.3 K/uL (0.7-4.9); Absolute Monocytes 0.6 K/uL (0.1-1.3); Absolute Neutrophil 4.9 K/uL (1.8-8.0); Basophils % 0.8 % (0-1.3); Eosinophils % 1.4 % (0-4.4); Hematocrit 22.3 % (36.0-45.0); Lymphocytes % 18.9 % (15.3-44.8); MCV 96.8 fL (80-100)
[2017-07-25] MEDS: PANTOPRAZOLE INJ 80 MG in NA CHLORIDE 0.9% 250 ML IV SCH (05:01)
[2017-07-25] MEDS: LEVOTHYROXINE SOD 0.1 MG TAB PO SCH (05:02)
[2017-07-25 05:23] LABS: Albumin 2.6 g/dL (3.2-5.5); Bilirubin Total 0.9 mg/dL (0.3-1.2); Phosphorus 2.6 mg/dL (2.5-4.3); Potassium 3.6 mEq/L (3.6-5.0); Protein, Total 5.1 g/dL (6.0-8.3)
[2017-07-25] MEDS: CITALOPRAM 10 MG TABLET PO SCH (08:31)
[2017-07-25] MEDS: GABAPENTIN 300 MG CAP PO SCH ×3 (08:31→20:19)
[2017-07-25] MEDS: HYOSCYAMINE SULF 0.125 MG TAB PO SCH (08:31)
[2017-07-25] MEDS: PRIMIDONE 50 MG TAB PO SCH ×2 (08:31→20:19)
[2017-07-25] MEDS: predniSONE 10 MG TAB PO SCH (08:31)
[2017-07-25] MEDS: DONEPEZIL HCL 5 MG TAB PO SCH ×2 (08:31→20:19)
[2017-07-25] MEDS: FUROSEMIDE 40 MG TABLET PO SCH ×2 (08:31→17:00)
[2017-07-25] MEDS: FERROUS SULFATE 325 MG TAB PO SCH ×2 (08:31→20:19)
[2017-07-25] MEDS: LORATADINE 10 MG TAB PO SCH (08:31)
[2017-07-25] MEDS: CALCIUM CARBONATE 500 MG TAB PO SCH (08:31)
[2017-07-25] MEDS: TAMSULOSIN 0.4 MG SR CAP PO SCH (08:31)
[2017-07-25] MEDS: VITAMIN B COMPLEX 1 CAP PO SCH (08:31)
[2017-07-25] MEDS: OCTREOTIDE 500 MCG in NA CHLORIDE 0.9% 500 ML IV SCH (08:41)
[2017-07-25] MEDS: METOPROLOL XL 25 MG TAB PO SCH ×2 (08:42→20:19)
[2017-07-25] MEDS ORDERED: KCL 20 MEQ/100 mL IVPB 20 MEQ/100 ML BAG IV SCH (09:00)
[2017-07-25] MEDS ORDERED: Ringers Lactate 1,000 ML IV ONE (09:20)
[2017-07-25] MEDS ORDERED: NA CHLORIDE 0.9% 250 ML ONE (10:02)
[2017-07-25] MEDS ORDERED: LIDOCAINE 1% MPF 5 ML VIAL ONE (10:16)
[2017-07-25] MEDS ORDERED: PROPOFOL 200 MG/20 ML VIAL IV ONE (10:16)
[2017-07-25] MEDS ORDERED: GLYCOPYRROLATE 0.2 MG/ML SYR ONE (10:20)
[2017-07-25] MEDS ORDERED: EPHEDRINE SULF 50 MG/ML SYR ONE (10:20)
[2017-07-25] MEDS ORDERED: Phenylephrine HCl 10 MG/ML 1 ML VIAL ONE (10:20)
--- NOTE | 2017-07-25 11:58 | OP ---
Surgeon: Lev Richardson MD Procedure: Esophagogastroduodenoscopy. Indications For Procedure: Anemia suspected GI bleed. Plan For Anesthesia: Monitored anesthesia care. Complexity: Very high due to severe CHF and severe COPD, recently requiring intubation and prolonged hospitalization, and is a significant risk for cardiorespiratory compromise. This have been discuss ed in detail with the patient and family. Also, Anesthesiology has seen the patient and they have ag berenice to do the case here. Technique: After obtaining informed consent from the patient and explaining risks and complications which include, but are not limited to bleeding, infection, perforation, and anesthesia complications, the patient was placed in a left lateral position and sedation was given. From then on, the scope w as advanced into the mouth and carefully guided up till the second portion of the duodenum. As soon as we reached the duodenum, the patient did have some desaturation, at which time, the scope was imme diately withdrawn and the patient bagged, which quickly return the saturation into normal. Subsequen tly, the scope was reinserted. After completion of examination and therapeutic procedures, the scope and equipment were withdrawn and procedure terminated in a safe manner. Findings: Esophagus: Evidence of mild Thea esophagitis was seen. A small hiatal hernia seen in the distal esophagus. Stomach: Moderate diffuse erythema seen in the body and antrum. Biopsies were taken. No evidence o f angiodysplasias or ulcers. Duodenum: The bulb appeared normal; however, in the second portion, there was a medium-sized AVM and a small AVM that was seen. These both were ablated with APC. Complications: None. Tolerance To Anesthesia: Acceptable, however, she did have transient desaturation during the procedu re. Plan: 1.Await pathology results. 2.Oral PPI twice a day. 3.Short course of fluconazole for the Thea. 4.We will leave it up to Cardiology the need and requirement for anticoagulation. At least aspirin should be okay from GI point of view as long as the patient stays on a PPI. Doing any more procedure s on her given the difficulty, we today still be considered high risk. This was discussed with the [facility] care team as well and the patient and family. /BOBBY Voice ID: [id number] Report ID: [id number]
[2017-07-25] MEDS: FLUCONAZOLE 200mg IVPB 200 MG/100 ML BAG IV SCH (15:48)
[2017-07-25] MEDS: FUROSEMIDE 20 MG/ 2ML VIAL IV PRN ×2 (16:22→20:08)
--- NOTE | 2017-07-25 16:59 | P.PN ---
Subjective Date of Service: 07/25/17 Primary Care Provider: TED Chief Complaint: Acute blood loss Anemia no abdominal pain, no nausea or vomiting after EGD procedure. Physical Examination - Vital Signs Temperature: 98.1 F Blood Pressure: 103/59 Pulse: 81 Respirations: 16 Pulse Ox (%): 98 - Physical Exam General: Alert, In no apparent distress HEENT: Atraumatic, PERRLA, EOMI Neck: Supple, JVD not distended Respiratory: Clear to auscultation bilaterally, Normal air movement Cardiovascular: Normal S1 S2, No gallops Gastrointestinal: Normal bowel sounds, No tenderness Musculoskeletal: No tenderness Integumentary: No rashes Neurological: Normal speech, Normal tone, Normal affect - Studies Medications List Reviewed: Yes Assessment And Plan - Current Problems (Diagnosis) (1) Anemia due to blood loss Current Visit: Yes Status: Acute (2) GIB (gastrointestinal bleeding) Current Visit: Yes Status: Acute Qualifiers: GI bleed type/associated pathology: melena Qualified Code(s): K92.1 - Melena (3) Afib Onset Date: 07/23/17 Current Visit: Yes Status: Chronic Qualifiers: Atrial fibrillation type: chronic Qualified Code(s): I48.2 - Chronic atrial fibrillation (4) COPD (chronic obstructive pulmonary disease) Onset Date: 06/25/17 Current Visit: No Status: Chronic Qualifiers: COPD type: unspecified COPD Qualified Code(s): J44.9 - Chronic obstructive pulmonary disease, unspecified (5) Dementia Onset Date: 06/25/17 Current Visit: No Status: Chronic Qualifiers: Dementia type: Alzheimer's disease Alzheimer's disease onset: other onset Dementia behavioral disturbance: without behavioral disturbance Qualified Code(s): G30.8 - Other Alzheimer's disease; F02.80 - Dementia in other diseases classified elsewhere without behavioral disturbance (6) Diabetes Onset Date: 06/25/17 Current Visit: No Status: Chronic Qualifiers: Diabetes mellitus type: type 2 Diabetes mellitus fci insulin use: without fci use Diabetes mellitus complication status: without complication Qualified Code(s): E11.9 - Type 2 diabetes mellitus without complications - Plan #1 Acute anemia: due to blood loss, secondary to GIB. She is receiving 2 UNITS of PRBC's. Will re-check HH after transfusion is done. #2 GIB: S/P EGD, remarkable for duodenal AVM's, and esophageal candidiasis. Continue oral PPI's #3 esophageal candidiasis: will start IV Fluconazole. #4 COPD: no signs of acute exacerbation. Continue breathing treatments. She is chronically on steroids as part of her treatment. plan: D/C home tomorrow if remain stable, without signs of acting bleeding. - Code Status/Comfort Care Code Status Assessed: Yes Code Status: Full Code
[2017-07-25] MEDS ORDERED: NA CHLORIDE 0.9% 50 ML ONE (17:08)
[2017-07-25] MEDS: PANTOPRAZOLE 40MG TABLET PO SCH (17:10)
[2017-07-25] MEDS: LORAZEPAM 0.5 MG TABLET PO SCH (20:18)
[2017-07-25] MEDS: MELATONIN 3 MG TABLET PO SCH (20:19)
[2017-07-26] MEDS: ACETAMINOPHEN 500 MG TAB PO PRN (00:01)
[2017-07-26 00:08] LABS: Hematocrit 32.1 % (36.0-45.0)
[2017-07-26 05:28] LABS: Absolute Lymphocytes (CBC) 1.7 K/uL (0.7-4.9); Absolute Monocytes 0.7 K/uL (0.1-1.3); Absolute Neutrophil 5.5 K/uL (1.8-8.0); Basophils % 1.2 % (0-1.3); Eosinophils % 1.7 % (0-4.4); MCV 92.5 fL (80-100); Monocytes % 8.5 % (3.3-12.3); RBC Red Blood Cell Count 3.46 M/uL (3.86-4.86)
[2017-07-26 05:48] LABS: Magnesium 1.7 mg/dL (1.8-2.5); Potassium 3.5 mEq/L (3.6-5.0)
[2017-07-26 06:17] LABS: Blood Morphology Comment NOT SEEN (NOT SEEN); Urine White Blood Cell Casts OK
[2017-07-26 06:18] LABS: Platelet Estimate ADEQ
[2017-07-26] MEDS ORDERED: MAGNESIUM SULFATE 1 gm IVPB 1 GM/100 ML BAG IV ONE (06:31)
[2017-07-26] MEDS: TOLTERODINE LA 4 MG CAP PO SCH ×2 (07:31→09:19)
[2017-07-26] MEDS: LEVOTHYROXINE SOD 0.1 MG TAB PO SCH (07:31)
[2017-07-26] MEDS ORDERED: POTASSIUM CL SA 10 MEQ TAB PO ONE (09:00)
[2017-07-26] MEDS: PANTOPRAZOLE 40MG TABLET PO SCH ×2 (09:16→16:26)
[2017-07-26] MEDS: DONEPEZIL HCL 5 MG TAB PO SCH ×2 (09:17→21:53)
[2017-07-26] MEDS: LORATADINE 10 MG TAB PO SCH (09:18)
[2017-07-26] MEDS: CITALOPRAM 10 MG TABLET PO SCH (09:18)
[2017-07-26] MEDS: VITAMIN B COMPLEX 1 CAP PO SCH (09:18)
[2017-07-26] MEDS: predniSONE 10 MG TAB PO SCH (09:19)
[2017-07-26] MEDS: FERROUS SULFATE 325 MG TAB PO SCH ×2 (09:20→21:52)
[2017-07-26] MEDS: TAMSULOSIN 0.4 MG SR CAP PO SCH (09:20)
[2017-07-26] MEDS: FUROSEMIDE 40 MG TABLET PO SCH ×2 (09:20→16:26)
[2017-07-26] MEDS: HYOSCYAMINE SULF 0.125 MG TAB PO SCH (09:20)
[2017-07-26] MEDS: GABAPENTIN 300 MG CAP PO SCH ×3 (09:21→21:53)
[2017-07-26] MEDS: PRIMIDONE 50 MG TAB PO SCH ×2 (09:21→21:53)
[2017-07-26] MEDS: METOPROLOL XL 25 MG TAB PO SCH ×2 (09:21→21:53)
[2017-07-26] MEDS: CALCIUM CARBONATE 500 MG TAB PO SCH (09:21)
[2017-07-26 14:15] LABS: Urine Appearance CLEAR; Urine Bilirubin NEGATIVE (NEG); Urine Blood NEGATIVE (NEG); Urine Color YELLOW; Urine Glucose NEGATIVE (NEG); Urine Protein NEGATIVE (NEG); Urine Specific Gravity <=1.005 (1.005-1.030); Urine pH 7.5 (5.0-7.0)
[2017-07-26 14:28] LABS: Urine Bacteria <20 /HPF (<20); Urine RBC <5 /HPF (NONE SEEN)
[2017-07-26 14:29] LABS: Urine Culture Reflex Order NOT NEEDED; Urine Mucus SL /HPF (NONE SEEN); Urine Yeast FEW (NONE SEEN)
[2017-07-26] MEDS: FLUCONAZOLE 200mg IVPB 200 MG/100 ML BAG IV SCH (16:26)
--- NOTE | 2017-07-26 16:34 | P.PN ---
Subjective Date of Service: 07/26/17 Primary Care Provider: TED Chief Complaint: Acute blood loss Anemia feels better, but she cannot urinate. No bleedings today Physical Examination - Vital Signs Temperature: 98.1 F Blood Pressure: 124/70 Pulse: 64 Respirations: 16 Pulse Ox (%): 98 - Physical Exam General: Alert, In no apparent distress HEENT: Atraumatic, PERRLA, EOMI Neck: Supple, JVD not distended Respiratory: Clear to auscultation bilaterally, Normal air movement Cardiovascular: Regular rate/rhythm, Normal S1 S2 Gastrointestinal: Normal bowel sounds, No tenderness Musculoskeletal: No tenderness Integumentary: No rashes Neurological: Normal speech, Normal tone, Normal affect Lymphatics: No axilla or inguinal lymphadenopathy - Studies Medications List Reviewed: Yes Assessment And Plan - Current Problems (Diagnosis) (1) Anemia due to blood loss Current Visit: Yes Status: Acute (2) GIB (gastrointestinal bleeding) Current Visit: Yes Status: Acute Qualifiers: GI bleed type/associated pathology: melena Qualified Code(s): K92.1 - Melena (3) Atrial fibrillation with RVR Onset Date: 06/25/17 Current Visit: No Status: Acute (4) CHF (congestive heart failure) Onset Date: 06/25/17 Current Visit: No Status: Chronic Qualifiers: Heart failure type: combined systolic and diastolic Heart failure chronicity: chronic Qualified Code(s): I50.42 - Chronic combined systolic ( congestive) and diastolic (congestive) heart failure (5) COPD (chronic obstructive pulmonary disease) Onset Date: 06/25/17 Current Visit: No Status: Chronic Qualifiers: COPD type: unspecified COPD Qualified Code(s): J44.9 - Chronic obstructive pulmonary disease, unspecified (6) Diabetes Onset Date: 06/25/17 Current Visit: No Status: Chronic Qualifiers: Diabetes mellitus type: type 2 Diabetes mellitus [facility] insulin use: without [facility] use Diabetes mellitus complication status: without complication Qualified Code(s): E11.9 - Type 2 diabetes mellitus without complications (7) Hyperlipidemia Onset Date: 06/25/17 Current Visit: No Status: Chronic Qualifiers: Hyperlipidemia type: unspecified Qualified Code(s): E78.5 - Hyperlipidemia , unspecified - Plan --Straight cath today --Send UA --On Diflucan --Replace Mag --Monitor Hct --DC tomorrow
[2017-07-26] MEDS: HYDROCODONE/APAP 10/325 TAB PO PRN (16:55)
[2017-07-26] MEDS: MELATONIN 3 MG TABLET PO SCH (21:00)
[2017-07-26] MEDS: LORAZEPAM 0.5 MG TABLET PO SCH (21:53)
[2017-07-27] MEDS ORDERED: POLYETHYL GLY 3350 17 GM/DOSE PO PRN (05:09)
[2017-07-27] MEDS ORDERED: ONDANSETRON 4 MG (ODT) TAB PO PRN (05:09)
[2017-07-27] MEDS ORDERED: ACETAMINOPHEN 325 MG TABLET PO PRN (05:09)
[2017-07-27] MEDS: PANTOPRAZOLE 40MG TABLET PO SCH ×3 (05:42→16:32)
[2017-07-27] MEDS: LEVOTHYROXINE SOD 0.1 MG TAB PO SCH (05:42)
[2017-07-27 05:53] LABS: Albumin 2.8 g/dL (3.2-5.5); Bilirubin Total 0.8 mg/dL (0.3-1.2); Magnesium 1.7 mg/dL (1.8-2.5); Potassium 4.2 mEq/L (3.6-5.0); Protein, Total 5.2 g/dL (6.0-8.3)
[2017-07-27 06:19] LABS: Absolute Lymphocytes (CBC) 1.3 K/uL (0.7-4.9); Absolute Monocytes 0.7 K/uL (0.1-1.3); Absolute Neutrophil 5.5 K/uL (1.8-8.0); Basophils % 0.6 % (0-1.3); Eosinophils % 0.9 % (0-4.4); Hematocrit 30.7 % (36.0-45.0); MCH 31.3 pg (27.0-35.0); MCV 92.2 fL (80-100); MPV 9.5 fL (7.6-11.3); Monocytes % 8.9 % (3.3-12.3); RBC Red Blood Cell Count 3.33 M/uL (3.86-4.86)
[2017-07-27] MEDS ORDERED: MAGNESIUM SULFATE 1 gm IVPB 1 GM/100 ML BAG IV ONE (06:30)
[2017-07-27 07:20] LABS: Protime INR 0.99
[2017-07-27] MEDS: HOME MED 1 EA UNK (Fluticasone/Vilanterol [Breo Ellipta 100-25 Mcg Inh] 1 PUFF) IH SCH (08:46)
[2017-07-27] MEDS: METOPROLOL XL 25 MG TAB PO SCH ×2 (08:47→20:49)
[2017-07-27] MEDS: VITAMIN B COMPLEX 1 CAP PO SCH (08:55)
[2017-07-27] MEDS: CITALOPRAM 10 MG TABLET PO SCH (08:55)
[2017-07-27] MEDS: DONEPEZIL HCL 5 MG TAB PO SCH ×2 (08:55→20:50)
[2017-07-27] MEDS: LORATADINE 10 MG TAB PO SCH (08:56)
[2017-07-27] MEDS: TOLTERODINE LA 4 MG CAP PO SCH (08:57)
[2017-07-27] MEDS: predniSONE 10 MG TAB PO SCH (08:57)
[2017-07-27] MEDS: TAMSULOSIN 0.4 MG SR CAP PO SCH (08:57)
[2017-07-27] MEDS: FERROUS SULFATE 325 MG TAB PO SCH ×2 (08:57→20:49)
[2017-07-27] MEDS: POTASSIUM CL SA 10 MEQ TAB PO SCH (08:58)
[2017-07-27] MEDS: HYOSCYAMINE SULF 0.125 MG TAB PO SCH (08:58)
[2017-07-27] MEDS: FUROSEMIDE 40 MG TABLET PO SCH ×2 (08:58→16:32)
[2017-07-27] MEDS: GABAPENTIN 300 MG CAP PO SCH ×3 (08:59→20:49)
[2017-07-27] MEDS: HYDROCODONE/APAP 7.5/325 MG TAB PO SCH ×2 (08:59→20:49)
[2017-07-27] MEDS: PRIMIDONE 50 MG TAB PO SCH ×2 (08:59→20:50)
[2017-07-27] MEDS: CALCIUM CARBONATE 500 MG TAB PO SCH (09:00)
[2017-07-27] MEDS: SENOSIDES 8.6 MG TAB PO SCH (09:00)
[2017-07-27] MEDS: HYDROCODONE/APAP 10/325 TAB PO PRN (16:32)
[2017-07-27] MEDS: FLUCONAZOLE 200mg IVPB 200 MG/100 ML BAG IV SCH (16:33)
[2017-07-27] MEDS: LORAZEPAM 0.5 MG TABLET PO SCH (20:50)
[2017-07-27] MEDS: MELATONIN 3 MG TABLET PO SCH (20:50)
[2017-07-27 21:41] VITALS: O2SAT 98
[2017-07-28 04:51] LABS: Potassium 4.9 mEq/L (3.6-5.0)
[2017-07-28] MEDS: PANTOPRAZOLE 40MG TABLET PO SCH ×2 (05:47→08:35)
[2017-07-28] MEDS: LEVOTHYROXINE SOD 0.1 MG TAB PO SCH (05:47)
[2017-07-28] MEDS: HYDROCODONE/APAP 10/325 TAB PO PRN ×2 (05:52→15:07)
[2017-07-28 07:16] VITALS: BMI 25.7
[2017-07-28] MEDS: DONEPEZIL HCL 5 MG TAB PO SCH (08:35)
[2017-07-28] MEDS: VITAMIN B COMPLEX 1 CAP PO SCH (08:35)
[2017-07-28] MEDS: CITALOPRAM 10 MG TABLET PO SCH (08:36)
[2017-07-28] MEDS: predniSONE 10 MG TAB PO SCH (08:37)
[2017-07-28] MEDS: LORATADINE 10 MG TAB PO SCH (08:37)
[2017-07-28] MEDS: TOLTERODINE LA 4 MG CAP PO SCH (08:37)
[2017-07-28] MEDS: FERROUS SULFATE 325 MG TAB PO SCH (08:37)
[2017-07-28] MEDS: TAMSULOSIN 0.4 MG SR CAP PO SCH (08:38)
[2017-07-28] MEDS: HOME MED 1 EA UNK (Fluticasone/Vilanterol [Breo Ellipta 100-25 Mcg Inh] 1 PUFF) IH SCH (08:38)
[2017-07-28] MEDS: POTASSIUM CL SA 10 MEQ TAB PO SCH (08:39)
[2017-07-28] MEDS: PRIMIDONE 50 MG TAB PO SCH (08:39)
[2017-07-28] MEDS: FUROSEMIDE 40 MG TABLET PO SCH (08:39)
[2017-07-28] MEDS: GABAPENTIN 300 MG CAP PO SCH ×2 (08:40→13:19)
[2017-07-28] MEDS: HYDROCODONE/APAP 7.5/325 MG TAB PO SCH (08:41)
[2017-07-28] MEDS: CALCIUM CARBONATE 500 MG TAB PO SCH (08:41)
[2017-07-28] MEDS: SENOSIDES 8.6 MG TAB PO SCH (08:42)
[2017-07-28] MEDS: METOPROLOL XL 25 MG TAB PO SCH (08:42)
[2017-07-28] MEDS: HYOSCYAMINE SULF 0.125 MG TAB PO SCH (08:43)
--- NOTE | 2017-07-28 09:09 | P.PN ---
Subjective Date of Service: 07/27/17 Patient is improving. Plan to get her out of bed to a chair and work on transferring. If she does well with this then possible discharge home today. Review of Systems 10-point ROS is otherwise unremarkable Physical Examination - Vital Signs Temperature: 98.9 F Blood Pressure: 112/71 Pulse: 89 Respirations: 17 Pulse Ox (%): 97 - Physical Exam General: Alert, In no apparent distress, Oriented x3 Respiratory: Clear to auscultation bilaterally, Normal air movement Cardiovascular: Regular rate/rhythm, Normal S1 S2, No murmurs Gastrointestinal: Normal bowel sounds, Soft and benign, Non-distended, No tenderness, No rebound, No guarding Musculoskeletal: No clubbing, No swelling, No tenderness Neurological: Normal speech, Normal tone, Sensation intact, Cranial nerves 3-12 intact, Normal affect - Studies Medications List Reviewed: Yes Assessment & Plan - Problems (Diagnosis) (1) Anemia Onset Date: 07/23/17 Current Visit: Yes Status: Acute Qualifiers: Anemia type: iron deficiency Iron deficiency anemia type: chronic blood loss Qualified Code(s): D50.0 - Iron deficiency anemia secondary to blood loss (chronic) (2) Anemia due to blood loss Current Visit: Yes Status: Acute (3) GIB (gastrointestinal bleeding) Current Visit: Yes Status: Acute Qualifiers: GI bleed type/associated pathology: melena Qualified Code(s): K92.1 - Melena (4) Afib Onset Date: 07/23/17 Current Visit: Yes Status: Chronic Qualifiers: Atrial fibrillation type: chronic Qualified Code(s): I48.2 - Chronic atrial fibrillation (5) Atrial fibrillation with RVR Onset Date: 06/25/17 Current Visit: No Status: Acute (6) COPD (chronic obstructive pulmonary disease) Onset Date: 06/25/17 Current Visit: No Status: Chronic Qualifiers: COPD type: unspecified COPD Qualified Code(s): J44.9 - Chronic obstructive pulmonary disease, unspecified (7) Dementia Onset Date: 06/25/17 Current Visit: No Status: Chronic Qualifiers: Dementia type: Alzheimer's disease Alzheimer's disease onset: other onset Dementia behavioral disturbance: without behavioral disturbance Qualified Code(s): G30.8 - Other Alzheimer's disease; F02.80 - Dementia in other diseases classified elsewhere without behavioral disturbance (8) Diabetes Onset Date: 06/25/17 Current Visit: No Status: Chronic Qualifiers: Diabetes mellitus type: type 2 Diabetes mellitus technician terminal and repeater insulin use: without technician terminal and repeater use Diabetes mellitus complication status: without complication Qualified Code(s): E11.9 - Type 2 diabetes mellitus without complications (9) Hyperlipidemia Onset Date: 06/25/17 Current Visit: No Status: Chronic Qualifiers: Hyperlipidemia type: unspecified Qualified Code(s): E78.5 - Hyperlipidemia , unspecified (10) Hyponatremia Onset Date: 06/25/17 Current Visit: No Status: Chronic (11) Hypothyroidism Onset Date: 06/25/17 Current Visit: No Status: Chronic Qualifiers: Hypothyroidism type: acquired Qualified Code(s): E03.9 - Hypothyroidism, unspecified (12) Respiratory failure Onset Date: 06/25/17 Current Visit: No Status: Resolved Qualifiers: Chronicity: acute on chronic Respiratory failure complication: hypoxia and hypercapnia Qualified Code(s): J96.21 - Acute and chronic respiratory failure with hypoxia; J96.22 - Acute and chronic respiratory failure with hypercapnia - Plan Plan: 1. Continue with IV hydration and PPI twice daily 2. Continue with IV antibiotics; Hep-Lock in the morning 3. Continue with pain control 4. Advanced diet as tolerated 5. Outpatient follow with GI 6. Serial H&H; anticipate discharge home today or in the morning 7. GI and DVT prophylaxis Discharge Plan: Home Plan to discharge in: 24 Hours - Advance Directives Does patient have a Living Will: No Does patient have a Durable POA for Healthcare: No - Code Status/Comfort Care Code Status: Full Code Critical Care: No Time Spent Managing PTS Care (In Minutes): 30
--- NOTE | 2017-07-28 09:13 | P.PN ---
Subjective Date of Service: 07/28/17 Patient did not get out of bed yesterday. Patient was not transferred yesterday. At this time will get her out of bed today and possible discharge home later this morning Review of Systems 10-point ROS is otherwise unremarkable Physical Examination - Vital Signs Temperature: 98.9 F Blood Pressure: 112/71 Pulse: 89 Respirations: 17 Pulse Ox (%): 97 - Physical Exam General: Alert, In no apparent distress, Oriented x3 Respiratory: Clear to auscultation bilaterally, Normal air movement Cardiovascular: Regular rate/rhythm, Normal S1 S2, Abnormal S3, No murmurs Gastrointestinal: Normal bowel sounds, Soft and benign, Non-distended, No tenderness Musculoskeletal: No clubbing - Studies Medications List Reviewed: Yes Assessment & Plan - Problems (Diagnosis) (1) Anemia Onset Date: 07/23/17 Current Visit: Yes Status: Acute Qualifiers: Anemia type: iron deficiency Iron deficiency anemia type: chronic blood loss Qualified Code(s): D50.0 - Iron deficiency anemia secondary to blood loss (chronic) (2) Anemia due to blood loss Current Visit: Yes Status: Acute (3) GIB (gastrointestinal bleeding) Current Visit: Yes Status: Acute Qualifiers: GI bleed type/associated pathology: melena Qualified Code(s): K92.1 - Melena (4) Afib Onset Date: 07/23/17 Current Visit: Yes Status: Chronic Qualifiers: Atrial fibrillation type: chronic Qualified Code(s): I48.2 - Chronic atrial fibrillation (5) Atrial fibrillation with RVR Onset Date: 06/25/17 Current Visit: No Status: Acute (6) COPD (chronic obstructive pulmonary disease) Onset Date: 06/25/17 Current Visit: No Status: Chronic Qualifiers: COPD type: unspecified COPD Qualified Code(s): J44.9 - Chronic obstructive pulmonary disease, unspecified (7) Dementia Onset Date: 06/25/17 Current Visit: No Status: Chronic Qualifiers: Dementia type: Alzheimer's disease Alzheimer's disease onset: other onset Dementia behavioral disturbance: without behavioral disturbance Qualified Code(s): G30.8 - Other Alzheimer's disease; F02.80 - Dementia in other diseases classified elsewhere without behavioral disturbance (8) Diabetes Onset Date: 06/25/17 Current Visit: No Status: Chronic Qualifiers: Diabetes mellitus type: type 2 Diabetes mellitus shelter insulin use: without computer terminal operator use Diabetes mellitus complication status: without complication Qualified Code(s): E11.9 - Type 2 diabetes mellitus without complications (9) Hyperlipidemia Onset Date: 06/25/17 Current Visit: No Status: Chronic Qualifiers: Hyperlipidemia type: unspecified Qualified Code(s): E78.5 - Hyperlipidemia , unspecified (10) Hyponatremia Onset Date: 06/25/17 Current Visit: No Status: Chronic (11) Hypothyroidism Onset Date: 06/25/17 Current Visit: No Status: Chronic Qualifiers: Hypothyroidism type: acquired Qualified Code(s): E03.9 - Hypothyroidism, unspecified (12) Respiratory failure Onset Date: 06/25/17 Current Visit: No Status: Resolved Qualifiers: Chronicity: acute on chronic Respiratory failure complication: hypoxia and hypercapnia Qualified Code(s): J96.21 - Acute and chronic respiratory failure with hypoxia; J96.22 - Acute and chronic respiratory failure with hypercapnia - Plan Plan: Continues to do well. Out of bed and ambulate or out of bed and transfer to wheelchair today. If no clinical worsening then anticipate discharge home: Follow plan of care as mentioned below; 2. Continue with IV antibiotics; Hep-Lock in the morning 3. Continue with pain control 4. Advanced diet as tolerated 5. Outpatient follow with GI 6. Serial H&H; anticipate discharge home today or in the morning 7. GI and DVT prophylaxis Discharge Plan: Home Plan to discharge in: 24 Hours - Advance Directives Does patient have a Living Will: No Does patient have a Durable POA for Healthcare: No - Code Status/Comfort Care Code Status: Full Code Critical Care: No Time Spent Managing PTS Care (In Minutes): 30
[2017-07-28 17:53] VITALS: BP 111/70; TEMP 97.9
[2017-07-30] MEDS ORDERED: ALENDRONATE 70 MG TAB PO SCH (06:30)
--- NOTE | 2017-08-12 05:27 | P.DS ---
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 Qualified Code(s): D50.0 - Iron deficiency anemia secondary to blood loss (chronic) (2) Anemia due to blood loss Status: Acute (3) GIB (gastrointestinal bleeding) Status: Acute Qualifiers: GI bleed type/associated pathology: melena Qualified Code(s): K92.1 - Melena (4) Afib Onset Date: 07/23/17 Status: Chronic Qualifiers: Atrial fibrillation type: chronic Qualified Code(s): I48.2 - Chronic atrial fibrillation (5) Atrial fibrillation with RVR Onset Date: 08/08/17 Status: Acute (6) COPD (chronic obstructive pulmonary disease) Onset Date: 08/08/17 Status: Acute Qualifiers: COPD type: unspecified COPD Qualified Code(s): J44.9 - Chronic obstructive pulmonary disease, unspecified (7) Dementia Onset Date: 08/08/17 Status: Chronic Qualifiers: Dementia type: Alzheimer's disease Alzheimer's disease onset: other onset Dementia behavioral disturbance: without behavioral disturbance Qualified Code(s): G30.8 - Other Alzheimer's disease; F02.80 - Dementia in other diseases classified elsewhere without behavioral disturbance (8) Diabetes Onset Date: 08/08/17 Status: Chronic Qualifiers: Diabetes mellitus type: type 2 Diabetes mellitus half-way insulin use: without half-way use Diabetes mellitus complication status: without complication Qualified Code(s): E11.9 - Type 2 diabetes mellitus without complications (9) Hyperlipidemia Onset Date: 08/08/17 Status: Chronic Qualifiers: Hyperlipidemia type: unspecified Qualified Code(s): E78.5 - Hyperlipidemia , unspecified (10) Hyponatremia Onset Date: 08/08/17 Status: Chronic (11) Hypothyroidism Onset Date: 08/08/17 Status: Chronic Qualifiers: Hypothyroidism type: acquired Qualified Code(s): E03.9 - Hypothyroidism, unspecified (12) Respiratory failure Onset Date: 06/25/17 Status: Resolved Qualifiers: Chronicity: acute on chronic Respiratory failure complication: hypoxia and hypercapnia Qualified Code(s): J96.21 - Acute and chronic respiratory failure with hypoxia; J96.22 - Acute and chronic respiratory failure with hypercapnia Brief History of Present Illness: This is a 82-year-old female with significant past medical history of CHF, COPD , AFib on chronic anti coagulation, GI ulcer, presented to the ED from the care home after her hemoglobin was found to be 7.8. Patient stated that she has been having some dark tarry stools x2 days at the facility and thus this admission checked her hemoglobin level which was found to be 7.8 which is down 3 points from 11.2 in about a week ago. Patient stated that she does not have any other associated symptoms with this. Denies having any shortness of breath , dizziness or chest pain at this time. Patient has been seen by GI in the past and has a EGD done with your she was found to have gastritis and gastric ulcer. Patient was also recently admitted to the hospital for extensive period of time for CHF exacerbation and hyponatremia was recently discharged to a custodial facility for rehab. She was doing well overall there however because of her hemoglobin drop she was transferred back to the hospital for further care. Patient does take Eliquis for her atrial fibrillation and has been on 5 mg b.i.d. Hospital Course: Patient is clinically improving. No more bleeding. We have held her anti coagulation. Patient was able to get out of bed and transfer to a wheelchair. Her strength is slowly improving. She will be discharged home with follow-up as an outpatient in 1-2weeks Vital Signs/Physical Exam: Temp Pulse Resp BP Pulse Ox 97.9 F 100 H 17 111/70 96 07/28/17 15:30 07/28/17 15:30 07/28/17 15:30 07/28/17 15:30 07/28/17 15:30 General: Alert, In no apparent distress, Oriented x3 Laboratory Data at Discharge: WBC 7.5 K/uL (4.3-10.9) 07/27/17 05:01 Hgb 10.4 g/dL (12.0-15.0) L 07/27/17 05:01 Hct 30.7 % (36.0-45.0) L 07/27/17 05:01 Plt Count 272 K/uL (152-406) 07/27/17 05:01 PT 11.7 SECONDS (9.5-12.5) 07/27/17 06:27 INR 0.99 07/27/17 06:27 APTT 23.4 SECONDS (24.3-36.9) L 07/27/17 06:27 Sodium 128 mEq/L (135-145) L 07/28/17 03:49 Potassium 4.9 mEq/L (3.6-5.0) 07/28/17 03:49 BUN 19 mg/dL (6-20) 07/28/17 03:49 Creatinine 1.00 mg/dL (0.44-1.00) 07/28/17 03:49 Glucose 94 mg/dL (65-120) 07/28/17 03:49 Phosphorus Cancelled 07/25/17 05:00 Magnesium 2.0 mg/dL (1.8-2.5) 07/28/17 03:49 Total Bilirubin 0.8 mg/dL (0.3-1.2) 07/27/17 05:01 AST 23 IU/L (10-42) 07/27/17 05:01 ALT 23 IU/L (10-60) 07/27/17 05:01 Alkaline Phosphatase 71 IU/L (42-121) 07/27/17 05:01 B-Natriuretic Peptide 314 pg/ml (<=100) H 07/22/17 14:33 Home Medications: Acetaminophen [Tylenol*] 2 tab PO Q6HP PRN 07/23/17 Alendronate Sodium [Fosamax] 70 mg PO EVERY 7TH DAY 07/23/17 Donepezil HCl [Aricept] 1 tab PO DAILY 07/23/17 Ferrous Sulfate [Ferrous Sulfate*] 325 mg PO BID 07/23/17 Fludrocortisone [Florinef *] 1 tab PO DAILY 07/23/17 Furosemide [Lasix] 40 mg PO BID 07/23/17 Gabapentin 600 mg PO TID 07/23/17 Hydrocodone 7.5/APAP 325 [[place] 7.5/325 mg*] 1 tab PO BID 07/23/17 Hyoscyamine Sulfate [Levsin TAB*] 0.125 mg PO DAILY 07/23/17 LORazepam [Ativan*] 1 tab PO BEDTIME 07/23/17 Levothyroxine [Synthroid*] 100 mcg PO [id number] 07/23/17 Loratadine [Claritin*] 1 tab PO DAILY 07/23/17 Melatonin 2 tab PO BEDTIME 07/23/17 Metoprolol Succinate [Toprol Xl*] 25 mg PO BID 07/23/17 Ondansetron HCl [Zofran] 4 mg PO Q6HP PRN 07/23/17 Pantoprazole Sodium [Protonix] 40 mg PO [id number] 07/23/17 Polyvinyl Alcohol [Artificial Tears] 2 drop OP Q8HP PRN 07/23/17 Potassium Chloride [Micro-K] 10 meq PO DAILY 07/23/17 Primidone [Mysoline *] 50 mg PO BID 07/23/17 Sennosides [Senna] 2 cap PO DAILY 07/23/17 Tamsulosin [Flomax*] 0.4 mg PO DAILY 07/23/17 Tramadol HCl [Ultram] 100 mg PO Q6H PRN 07/23/17 Vitamin B Complex [B Complex] 1 tab PO DAILY 07/23/17 predniSONE [Deltasone*] 10 mg PO DAILY 07/23/17 Arformoterol Tartrate [Brovana] 15 mcg IH BID 30 Days #60 vial.neb 08/08/17 Calcium Carbonate [Tums Regular] 500 mg PO DAILY 08/08/17 Ciprofloxacin HCl [Cipro 250 MG Tablet*] 250 mg PO BID 08/08/17 Citalopram Hydrobromide [Citalopram HBr] 40 mg PO DAILY 08/08/17 Ipratropium/Albuterol Sulfate [Iprat-Albut 0.5-3(2.5) mg/3 ml] 3 ml IH Q6HP PRN 08/08/17 Polyethyl Gly 3350 [Glycolax*] 17 gm PO DAILYPRN PRN 08/08/17 Apixaban [Eliquis] 5 mg PO BID #0 tablet 08/10/17 Lisinopril [Prinivil*] 5 mg PO BEDTIME tab 08/10/17 Metoprolol Succinate [Toprol Xl] 50 mg PO BID #60 tab.er.24h 08/10/17 Patient Discharge Instructions: OK TO DC IV AND DC HOME IF TRANSFERS WITHOUT ANY DIFFICULTY. FOLLOW-UP WITH PRIMARY CARE PROVIDER IN 1-2 WEEKS. FOLLOW-UP WITH 1-2 WEEKS. RETURN TO THE ER IF symptoms worsen. CALL or TEXT DR. WALLIS AT [phone] IF ANY QUESTIONS REGARDING HOSPITAL STAY. PLEASE CALL THE FLOOR AT [phone] IF ANY MEDICATION OR NURSING QUESTIONS. Diet: Renal Activity: Ad tiago Followup: Lev Richardson MD [ACTIVE - CAN ADMIT] - 1-2 Weeks (Follow up in [facility] in 1 -2 weeks. Call to schedule an appointment. ) Time spent managing pt's care (in minutes): 30
== END 2017-07-28 15:40 | DRG 378 ==
LOC: ER 13:09 → ERHOLD 17:03 → OBSVTOIN 17:03 → 2ND 19:24
PROVIDERS: ADMIT Family Medicine; ATTEND Family Medicine
PROC: 30233N1 Transfusion of Nonautologous Red Blood Cells into Peripheral Vein, Percutaneous Approach (ICD-10-PCS; 2017-07-25)
PROC: 0D568ZZ Destruction of Stomach, Via Natural or Artificial Opening Endoscopic (ICD-10-PCS; principal; 2017-07-25 12:00)
DX: K92.1 Melena (principal); D62 Acute posthemorrhagic anemia; B37.81 Candidal esophagitis; I50.42 Chronic combined systolic (congestive) and diastolic (congestive) heart failure; E87.1 Hypo-osmolality and hyponatremia; Q27.33 Arteriovenous malformation of digestive system vessel; K44.9 Diaphragmatic hernia without obstruction or gangrene; I48.2 Chronic atrial fibrillation; I25.10 Atherosclerotic heart disease of native coronary artery without angina pectoris; J44.9 Chronic obstructive pulmonary disease, unspecified; Z79.01 Long term (current) use of anticoagulants; G30.9 Alzheimer's disease, unspecified; F02.80 Dementia in other diseases classified elsewhere, unspecified severity, without behavioral disturbance, psychotic disturbance, mood disturbance, and anxiety; E11.9 Type 2 diabetes mellitus without complications; K21.0 Gastro-esophageal reflux disease with esophagitis; E78.5 Hyperlipidemia, unspecified; E03.9 Hypothyroidism, unspecified
CPT/HCPCS: 36415; 71045; 80048; 80053; 80076; 81001; 81003; 81015; 82550; 82553; 83735; 83880; 84100; 85014; 85018; 85025; 85610; 85730; 86850; 86900; 86901; 87045; 87046; 87077; 87086; 87088; 87186; 88305; 88312; 93005; 99285; C9113; J1450; J1940; J2354; J2370; J3475; J7512; P9016

== ENCOUNTER 2017-08-07 20:14 | Inpatient (IN) | payer OTHER ==
[2017-08-07] MEDS ORDERED: IPRATROPIUM BROM 0.5MG/2.5ML ONE (21:16)
[2017-08-07] MEDS ORDERED: LEVALBUTEROL 1.25 MG/3 ML NEB ONE ×2 (21:16→22:24)
[2017-08-07] MEDS ORDERED: METHYLPREDNISOLONE 125 MG INJ ONE (21:16)
[2017-08-07 21:48] LABS: Protime INR 1.48
[2017-08-07 21:50] LABS: Absolute Lymphocytes (CBC) 0.7 K/uL (0.7-4.9); Absolute Monocytes 0.4 K/uL (0.1-1.3); Absolute Neutrophil 4.7 K/uL (1.8-8.0); Basophils % 0.7 % (0-1.3); Eosinophils % 0.2 % (0-4.4); Hematocrit 32.1 % (36.0-45.0); Lymphocytes % 11.8 % (15.3-44.8); MCH 31.9 pg (27.0-35.0); MCV 94.3 fL (80-100); MPV 8.8 fL (7.6-11.3); Monocytes % 7.2 % (3.3-12.3); RBC Red Blood Cell Count 3.41 M/uL (3.86-4.86)
[2017-08-07 22:02] LABS: Bilirubin Direct 0.2 mg/dL (0-0.2); Bilirubin Total 0.5 mg/dL (0.2-1.0); Magnesium 2.2 mg/dL (1.8-2.4); Potassium 3.8 mmol/L (3.5-5.1); Protein, Total 6.9 g/dL (6.4-8.2)
--- NOTE | 2017-08-07 22:20 | ER ---
Nurse's Notes [facility] Name: Blaire Dunlap Age: 82 yrs Sex: Female : 1935 Arrival Date: 08/07/2017 Time: 20:16 Bed 2 Private MD: Diagnosis: Atrial fibrillation and flutter;Dyspnea;Bronchitis, not specified as acute or chronic;Chronic obstructive pulmonary disease with (acute) exacerbation Presentation: 08/07 20:17 Presenting complaint: EMS states: Patient reported heart palpitations that comes and ao goes for 25 to 30 min. On scene HR was in between 98 to 160. Patient also had a cough that started few days ago. Transition of care: patient was not received from another setting of care. Onset of symptoms is unknown. Risk Assessment: Do you want to hurt yourself or someone else? Patient reports no desire to harm self or others. Initial Sepsis Screen: Does the patient meet any 2 criteria? RR > 20 per min. HR > 90 bpm. Yes Does the patient have a suspected source of infection? No. Patient's initial sepsis screen is negative. Care prior to arrival: None. 20:17 Method Of Arrival: EMS: [facility] ao 20:17 Acuity: BRUNA 2 ao Historical: - Allergies: 20:27 NKA; ao - Home Meds: 23:34 potassium chloride 10 mEq Oral TbER once daily [Active]; prednisone 10 mg Oral tab once ao daily [Active]; senna 8.6 mg Oral cap 2 caps once daily [Active]; Protonix 40 mg Oral TbEC 1 tab once daily [Active]; levothyroxine 100 mcg tab 1 tab once daily [Active]; metoprolol tartrate 25 mg Oral tab 1 tab 2 times per day [Active]; Ultram 50 mg Oral tab 1 tab every 6 hours for Pain [Active]; B complex-minerals 1 tab Oral [Active]; Zofran (as hydrochloride) 4 mg Oral tab 1 tabs every 6hrs PRN [Active]; Breo Ellipta 100-25 mcg/dose inhalation dsdv 1 puff once daily [Active]; calcium vitamin D 600-200 mg-unit once a day [Active]; Cipro 250 mg Oral tab 1 tab every 12 hours [Active]; citalopram 20 mg tab 2 tabs once daily [Active]; Claritin 10 mg Oral tab 1 tab once daily [Active]; ferrous sulfate 325 mg (65 mg iron) Oral tab twice a day [Active]; Flomax 0.4 mg Oral cp24 1 cap once daily [Active]; fludrocortisone 0.1 mg oral tab 1 tab once daily [Active]; Lasix 40 mg Oral tab 1 tab 2 times per day [Active]; gabapentin 600 mg Oral tab 1 tab 3 times per day [Active]; DuoNeb 0.5 mg-3 mg(2.5 mg base)/3 mL Inhl nebu q 6hrs prn [Active]; hyoscyamine sulfate 0.125 mg/5 mL Oral elix 5 mL daily [Active]; melatonin 3 mg Oral tab 2 tab nightly [Active]; Lebo 7.5-325 mg Oral tab 1 tab twice a day for Pain [Active]; GlycoLax 17 gram/dose Oral powd as needed [Active]; acetaminophen 325 mg Oral cap 2 tab every 6 hours for Pain [Active]; alendronate 70 mg Oral tab 1 tab once wkly [Active]; Aricept 23 mg Oral tab once daily for Mild to Moderate Alzheimer's Type Dementia [Active]; artificial tears(hypromellose) 0.4 % Opht drop 1 drop three times a day for Dry Eye [Active]; lorazepam 0.5 mg Oral tab 1 tab nightly [Active]; Mysoline 50 mg Oral tab 5 tabs 4 times per day [Active]; - PMHx: 20:27 Allergic rhinitis; Anemia; Anxiety; Arthritis; Atrial Fib; CAD; C-diff; Chronic ao ischemic heart disease; Chronic pain; Chronic Pancreatitis; conversion disorder with seizures or convulsions; COPD; Current UTI (ESBL); Dementia; Depression; Diabetes; GERD; Hypertension; Hypothyroidism; insomnia; 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 - Social history:: Smoking status: Patient/guardian denies using tobacco, Patient/guardian denies using alcohol, street drugs. - Ebola Screening: : Patient negative for fever greater than or equal to 101.5 degrees Fahrenheit, and additional compatible Ebola Virus Disease symptoms Patient denies exposure to infectious person Patient denies travel to an Ebola-affected area in the 21 days before illness onset. Screenin:28 Abuse screen: Denies threats or abuse. Denies injuries from another. Nutritional ao screening: No deficits noted. Tuberculosis screening: No symptoms or risk factors identified. Fall Risk Fall in past 12 months (25 points). Assessment: 20:29 General: Appears in no apparent distress. comfortable, Behavior is calm, cooperative. ao Pain: Complains of pain in back. Neuro: Level of Consciousness is awake, alert, obeys commands, Oriented to person, time, situation. Cardiovascular: Capillary refill < 3 seconds Patient's skin is warm and dry. Respiratory: Airway is patent Respiratory effort is unlabored, Respiratory pattern is tachypnea Breath sounds with wheezes in right middle lobe, left lower lobe and right lower lobe. GI: Abdomen is non-distended. GI: Bowel sounds present X 4 quads. : No signs and/or symptoms were reported regarding the genitourinary system. EENT: No signs and/or symptoms were reported regarding the EENT system. Derm: Skin is intact, Skin is pink, warm \T\ dry. Skin temperature is warm Wound noted. Musculoskeletal: No signs and/or symptoms reported regarding the musculoskeletal system. 22:00 Neuro: Level of Consciousness is awake, alert, obeys commands. Respiratory: Airway is lp1 patent Respiratory effort is even, Respiratory pattern is regular, Breath sounds with wheezes bilaterally. Some improvement noted. Derm: Skin is intact, Skin is normal, Skin temperature is warm. 22:30 Reassessment: Report given to Daniella at [facility] for patient discharge. lp1 23:15 Reassessment: On arrival of EMS for transport back to [place], patient HR to 130's, lp1 resting, eyes closed, respirations unlabored; Provider notified. 23:40 Reassessment: Spoke with Daniella from [facility], aware of patient not being lp1 discharged. 08/08 00:30 Reassessment: Patient appears in no apparent distress at this time. Patient and/or ao family updated on plan of care and expected duration. Pain level reassessed. Patient is alert, oriented x 3, equal unlabored respirations, skin warm/dry/pink. Patient to stay in the hospital per Dr Noel. Patient to get a Salgado and medications. 01:08 Reassessment: Patient and/or family updated on plan of care and expected duration. Pain ao level reassessed. Waiting on DR Admission orders to take patient to her room. Vital Signs: 08/07 20:20 BP 117 / 87; Pulse 108; Resp 24; Temp 98.5(TE); Pulse Ox 92% on 2 lpm NC; Weight 46.72 ao kg (R); Height 5 ft. 4 in. (162.56 cm); Pain 7/10; 22:11 BP 119 / 82; Pulse 107; Resp 25; Pulse Ox 93% on 2 lpm NC; lp1 22:11 BP 124 / 85; Pulse 110; Resp 19; Pulse Ox 97% on 2 lpm NC; lp1 23:43 lp1 23:43 BP 115 / 79; Pulse 112; Resp 20; Pulse Ox 93% on 35% Venturi mask; lp1 08/08 00:30 BP 129 / 77; Pulse 109; Resp 24; Pulse Ox 94% on 4 lpm NC; ao 01:08 BP 125 / 87; Pulse 98; Resp 22; Pulse Ox 100% on 12% Nebulizer Mask; Pain 0/10; ao 01:49 BP 129 / 87; Pulse 112; Resp 20; Temp 97.7(O); Pulse Ox 99% on 35% Venturi mask; lp1 08/07 20:20 Body Mass Index 17.68 (46.72 kg, 162.56 cm) ao 08/07 23:43 Patient 86% O2 on 2L NC while sleeping lp1 ED Course: 20:16 Patient arrived in ED. ao 20:20 Triage completed. ao 20:22 Arm band placed on right wrist. Patient placed in an exam room, Patient notified of ao wait time. 20:28 Patient has correct armband on for positive identification. staffing manager on. Pulse ao ox on. NIBP on. 20:42 Jez Doshi PA is PHCP. jr8 20:42 Oli Noel MD is Attending Physician. jr8 21:18 X-ray completed. Portable x-ray completed in exam room. Patient tolerated procedure ml well. 21:18 XRAY Chest (1 view) In Process Unspecified. EDMS 21:39 Inserted saline lock: 22 gauge in right forearm, using aseptic technique. lp1 22:11 Rosemarie Hurt, RN is Primary Nurse. lp1 22:17 Cleaned of incontinence. Brief changed. lp1 23:12 Gottlieb, Jurgen, RN is Primary Nurse. ao 23:41 Mark Curran MD is Hospitalizing Provider. quita 08/08 00:40 Salgado cath inserted, using sterile technique, 16 Fr., by me, balloon inflated, to mg2 gravity drainage, urine specimen collected. 01:46 No provider procedures requiring assistance completed. Patient admitted, IV remains in lp1 place. Administered Medications: 08/07 21:38 Drug: SOLU-Medrol 125 mg Route: IVP; Site: right forearm; lp1 22:17 Follow up: Response: No adverse reaction lp1 08/08 02:01 Follow up: Response: No adverse reaction ao 08/07 21:39 Drug: Xopenex (3) 1.25 mg Route: Inhalation; lp1 08/08 02:00 Follow up: Response: No adverse reaction ao 08/07 21:39 Drug: AtroVENT Aerosol 0.5 mg Route: Inhalation; lp1 08/08 02:01 Follow up: Response: No adverse reaction ao 08/07 22:24 Drug: Xopenex 1.25 mg Route: Inhalation; lp1 08/08 02:02 Follow up: Response: No adverse reaction ao 08/07 23:41 CANCELLED (Duplicate Order): Lovenox 1 mg/kg Sub-Q once quita 23:45 Drug: ProTONIX 40 mg Route: IVP; Site: right antecubital; ao 08/08 01:58 Follow up: Response: No adverse reaction lp1 02:03 Follow up: Response: No adverse reaction ao 00:40 Drug: Lopressor 25 mg Route: PO; ao 02:02 Follow up: Response: No adverse reaction ao 00:40 Drug: Lopressor 2.5 mg Route: IVP; Site: right antecubital; ao 02:03 Follow up: Response: No adverse reaction ao 00:40 Drug: Xopenex 1.25 mg Route: Inhalation; ao 02:03 Follow up: Response: No adverse reaction ao 00:45 Drug: Lasix 20 mg Route: IVP; Site: right antecubital; ao 02:03 Follow up: Response: No adverse reaction ao 01:00 Drug: Lopressor 2.5 mg Route: IVP; Site: right antecubital; ao 02:02 Follow up: Response: No adverse reaction ao Output: 01:49 Urine: 450ml (Salgado); Total: 450ml. lp1 Outcome: 08/07 22:20 Discharge ordered by . shalom 23:43 Decision to Hospitalize by Provider. quita 08/08 01:46 Admitted to Med/surg via stretcher, room 232, with oxygen, with chart, Report called to lp1 JOHANNA Monet Condition: stable Instructed on the need for admit, to patient and daughter 02:04 Patient left the ED. ao Signatures: Dispatcher [employer] EDMS Oli Noel MD MD cha Lopez, Melissa ml Pena, Laura, RN RN lp1 Jez Doshi PA PA jr8 Ortiz, Alex, RN RN Timmy Elias RN RN mg2 Corrections: (The following items were deleted from the chart) 08/07 22:37 21:30 Reassessment: Patient appears in no apparent distress at this time. Patient lp1 and/or family updated on plan of care and expected duration. Pain level reassessed. Patient is alert, oriented x 3, equal unlabored respirations, skin warm/dry/pink. lp1 22:37 22:11 Reassessment: Patient appears in no apparent distress at this time. Patient lp1 and/or family updated on plan of care and expected duration. Pain level reassessed. Patient is alert, oriented x 3, equal unlabored respirations, skin warm/dry/pink. lp1 08/08 01:58 01:49 BP 129 / 87; Pulse 112bpm; Resp 20bpm; Pulse Ox 99% 02 35% Venturi mask; lp1 lp1
--- NOTE | 2017-08-07 22:20 | EDPHYS ---
Physician Documentation [facility] Name: Blaire Dunlap Age: 82 yrs Sex: Female : 1935 Arrival Date: 08/07/2017 Time: 20:16 Bed 2 Private MD: ED Physician Oli Noel HPI: 08/07 22:10 This 82 yrs old Female presents to ER via EMS with complaints of Palpitations.jr8 22:10 The patient presents with a history of irregular heart beat. Context: The symptoms jr8 occur at rest. Onset: The symptoms/episode began/occurred acutely, today. Duration: The patient or guardian reports a single episode. Modifying factors: The symptoms are aggravated by nothing. The symptoms are alleviated by nothing. Associated signs and symptoms: The patient has no apparent associated signs or symptoms. Severity of symptoms: At their worst the symptoms were moderate in the emergency department the symptoms have improved. The patient has experienced similar episodes in the past, a few times. The patient has not recently seen a physician. Patient with history of atrial fibrillation. Stated that she started to feel her heart racing today. Was worried because it was not going away. Stated that she has had a harder time breathing as well . Historical: - Allergies: 20:27 NKA; ao - Home Meds: 23:34 potassium chloride 10 mEq Oral TbER once daily [Active]; prednisone 10 mg Oral tab once ao daily [Active]; senna 8.6 mg Oral cap 2 caps once daily [Active]; Protonix 40 mg Oral TbEC 1 tab once daily [Active]; levothyroxine 100 mcg tab 1 tab once daily [Active]; metoprolol tartrate 25 mg Oral tab 1 tab 2 times per day [Active]; Ultram 50 mg Oral tab 1 tab every 6 hours for Pain [Active]; B complex-minerals 1 tab Oral [Active]; Zofran (as hydrochloride) 4 mg Oral tab 1 tabs every 6hrs PRN [Active]; Breo Ellipta 100-25 mcg/dose inhalation dsdv 1 puff once daily [Active]; calcium vitamin D 600-200 mg-unit once a day [Active]; Cipro 250 mg Oral tab 1 tab every 12 hours [Active]; citalopram 20 mg tab 2 tabs once daily [Active]; Claritin 10 mg Oral tab 1 tab once daily [Active]; ferrous sulfate 325 mg (65 mg iron) Oral tab twice a day [Active]; Flomax 0.4 mg Oral cp24 1 cap once daily [Active]; fludrocortisone 0.1 mg oral tab 1 tab once daily [Active]; Lasix 40 mg Oral tab 1 tab 2 times per day [Active]; gabapentin 600 mg Oral tab 1 tab 3 times per day [Active]; DuoNeb 0.5 mg-3 mg(2.5 mg base)/3 mL Inhl nebu q 6hrs prn [Active]; hyoscyamine sulfate 0.125 mg/5 mL Oral elix 5 mL daily [Active]; melatonin 3 mg Oral tab 2 tab nightly [Active]; [place] 7.5-325 mg Oral tab 1 tab twice a day for Pain [Active]; GlycoLax 17 gram/dose Oral powd as needed [Active]; acetaminophen 325 mg Oral cap 2 tab every 6 hours for Pain [Active]; alendronate 70 mg Oral tab 1 tab once wkly [Active]; Aricept 23 mg Oral tab once daily for Mild to Moderate Alzheimer's Type Dementia [Active]; artificial tears(hypromellose) 0.4 % Opht drop 1 drop three times a day for Dry Eye [Active]; lorazepam 0.5 mg Oral tab 1 tab nightly [Active]; Mysoline 50 mg Oral tab 5 tabs 4 times per day [Active]; - PMHx: 20:27 Allergic rhinitis; Anemia; Anxiety; Arthritis; Atrial Fib; CAD; C-diff; Chronic ao ischemic heart disease; Chronic pain; Chronic Pancreatitis; conversion disorder with seizures or convulsions; COPD; Current UTI (ESBL); Dementia; Depression; Diabetes; GERD; Hypertension; Hypothyroidism; insomnia; 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 - Social history:: Smoking status: Patient/guardian denies using tobacco, Patient/guardian denies using alcohol, street drugs. - Ebola Screening: : Patient negative for fever greater than or equal to 101.5 degrees Fahrenheit, and additional compatible Ebola Virus Disease symptoms Patient denies exposure to infectious person Patient denies travel to an Ebola-affected area in the 21 days before illness onset. ROS: 22:10 Eyes: Negative for injury, pain, redness, and discharge, ENT: Negative for injury, jr8 pain, and discharge, Neck: Negative for injury, pain, and swelling, Abdomen/GI: Negative for abdominal pain, nausea, vomiting, diarrhea, and constipation, Back: Negative for injury and pain, MS/Extremity: Negative for injury and deformity, Skin: Negative for injury, rash, and discoloration, Neuro: Negative for headache, weakness, numbness, tingling, and seizure. 22:10 Cardiovascular: Positive for palpitations, Negative for chest pain, edema, orthopnea. 22:10 Respiratory: Positive for shortness of breath. Exam: 22:10 Eyes: Pupils equal round and reactive to light, extra-ocular motions intact. Lids and jr8 lashes normal. Conjunctiva and sclera are non-icteric and not injected. Cornea within normal limits. Periorbital areas with no swelling, redness, or edema. ENT: Nares patent. No nasal discharge, no septal abnormalities noted. Tympanic membranes are normal and external auditory canals are clear. Oropharynx with no redness, swelling, or masses, exudates, or evidence of obstruction, uvula midline. Mucous membranes moist. Neck: Trachea midline, no thyromegaly or masses palpated, and no cervical lymphadenopathy. Supple, full range of motion without nuchal rigidity, or vertebral point tenderness. No Meningismus. Abdomen/GI: Soft, non-tender, with normal bowel sounds. No distension or tympany. No guarding or rebound. No evidence of tenderness throughout. Back: No spinal tenderness. No costovertebral tenderness. Full range of motion. Skin: Warm, dry with normal turgor. Normal color with no rashes, no lesions, and no evidence of cellulitis. MS/ Extremity: Pulses equal, no cyanosis. Neurovascular intact. Full, normal range of motion. Neuro: Awake and alert, GCS 15, oriented to person, place, time, and situation. Cranial nerves II-XII grossly intact. Motor strength 5/5 in all extremities. Sensory grossly intact. Cerebellar exam normal. Normal gait. 22:10 Cardiovascular: Rate: tachycardic, Rhythm: irregularly irregular, Pulses: Pulses are 2+ in right radial artery and left radial artery. Heart sounds: normal, normal S1and S2, no S3 or S4, no murmur, no rub, no gallop, Edema: is not appreciated, JVD: is not appreciated. 22:10 Respiratory: the patient does not display signs of respiratory distress, Respirations: tachypnea, that is mild, Breath sounds: rhonchi, that are mild, are heard diffusely, wheezing: expiratory that is mild, is heard diffusely. Vital Signs: 20:20 BP 117 / 87; Pulse 108; Resp 24; Temp 98.5(TE); Pulse Ox 92% on 2 lpm NC; Weight 46.72 ao kg (R); Height 5 ft. 4 in. (162.56 cm); Pain 7/10; 22:11 BP 119 / 82; Pulse 107; Resp 25; Pulse Ox 93% on 2 lpm NC; lp1 22:11 BP 124 / 85; Pulse 110; Resp 19; Pulse Ox 97% on 2 lpm NC; lp1 23:43 lp1 23:43 BP 115 / 79; Pulse 112; Resp 20; Pulse Ox 93% on 35% Venturi mask; lp1 08/08 00:30 BP 129 / 77; Pulse 109; Resp 24; Pulse Ox 94% on 4 lpm NC; ao 01:08 BP 125 / 87; Pulse 98; Resp 22; Pulse Ox 100% on 12% Nebulizer Mask; Pain 0/10; ao 01:49 BP 129 / 87; Pulse 112; Resp 20; Temp 97.7(O); Pulse Ox 99% on 35% Venturi mask; lp1 08/07 20:20 Body Mass Index 17.68 (46.72 kg, 162.56 cm) ao 08/07 23:43 Patient 86% O2 on 2L NC while sleeping lp1 MDM: 20:42 Patient medically screened. jr8 22:18 Data reviewed: vital signs, nurses notes, lab test result(s), EKG, radiologic studies, jr8 plain films, and as a result, I will discharge patient. Data interpreted: Pulse oximetry: on room air is 97 %. Interpretation: normal. Counseling: I had a detailed discussion with the patient and/or guardian regarding: the historical points, exam findings, and any diagnostic results supporting the discharge/admit diagnosis, lab results, radiology results, the need for outpatient follow up, a family practitioner, to return to the emergency department if symptoms worsen or persist or if there are any questions or concerns that arise at home. Response to treatment: the patient's symptoms have markedly improved after treatment. ED course: Patient stated that she is feeling much better. Wants to go back to [facility]. Is on continuous oxygen there. Will write for Q6 hour A\T\A treatments. To come back if worse . 08/07 20:42 Order name: Basic Metabolic Panel; Complete Time: 22:[address] [facility] 08/07 20:42 Order name: CBC with Diff; Complete Time: 22:[address] [facility] 08/07 20:42 Order name: LFT's; Complete Time: 22:[address] [facility] 08/07 20:42 Order name: Magnesium; Complete Time: 22:[address] [facility] 08/07 20:42 Order name: PT-INR; Complete Time: 22:[address] [facility] 08/07 20:42 Order name: Troponin (emerg Dept Use Only); Complete Time: 22:[address] [facility] 08/07 20:42 Order name: XRAY Chest (1 view); Complete Time: 23:[address] [facility] 08/07 23:33 Order name: TSH [facility] 08/07 23:34 Order name: Thyroid Stimulating Hormone; Complete Time: 00:02 [facility] 08/07 23:40 Order name: Blood Culture Adult (2) [facility] 08/07 23:49 Order name: RCOP XOPENEX 1.25 MG [facility] 08/08 00:04 Order name: BNP [facility] 08/08 01:46 Order name: NT PRO-BNP; Complete Time: 19:08 [facility] 08/07 20:42 Order name: EKG; Complete Time: 20:[address] [facility] 08/07 20:42 Order name: Cardiac monitoring; Complete Time: 20:[address] [facility] 08/07 20:42 Order name: EKG - Nurse/Tech; Complete Time: 20:[address] [facility] 08/07 20:42 Order name: IV Saline Lock; Complete Time: 21:[address] [facility] 08/07 20:42 Order name: Labs collected and sent; Complete Time: 21:[address] [facility] 08/07 23:49 Order name: CONS Physician Consult [facility] 08/07 20:42 Order name: O2 Per Protocol; Complete Time: 20:[address] [facility] 08/07 20:42 Order name: O2 Sat Monitoring; Complete Time: 20:[address] [facility] 08/08 01:06 Order name: Naomi; Complete Time: 01:06 ao Administered Medications: 21:38 Drug: SOLU-Medrol 125 mg Route: IVP; Site: right forearm; lp1 22:17 Follow up: Response: No adverse reaction lp1 08/08 02:01 Follow up: Response: No adverse reaction ao 08/07 21:39 Drug: Xopenex (3) 1.25 mg Route: Inhalation; lp1 08/08 02:00 Follow up: Response: No adverse reaction ao 08/07 21:39 Drug: AtroVENT Aerosol 0.5 mg Route: Inhalation; lp1 08/08 02:01 Follow up: Response: No adverse reaction ao 08/07 22:24 Drug: Xopenex 1.25 mg Route: Inhalation; lp1 08/08 02:02 Follow up: Response: No adverse reaction ao 08/07 23:41 CANCELLED (Duplicate Order): Lovenox 1 mg/kg Sub-Q once quita 23:45 Drug: ProTONIX 40 mg Route: IVP; Site: right antecubital; ao 08/08 01:58 Follow up: Response: No adverse reaction lp1 02:03 Follow up: Response: No adverse reaction ao 00:40 Drug: Lopressor 25 mg Route: PO; ao 02:02 Follow up: Response: No adverse reaction ao 00:40 Drug: Lopressor 2.5 mg Route: IVP; Site: right antecubital; ao 02:03 Follow up: Response: No adverse reaction ao 00:40 Drug: Xopenex 1.25 mg Route: Inhalation; ao 02:03 Follow up: Response: No adverse reaction ao 00:45 Drug: Lasix 20 mg Route: IVP; Site: right antecubital; ao 02:03 Follow up: Response: No adverse reaction ao 01:00 Drug: Lopressor 2.5 mg Route: IVP; Site: right antecubital; ao 02:02 Follow up: Response: No adverse reaction ao Disposition: 08/07 23:37 Co-signature as Attending Physician, Oli Noel MD I agree with the assessment and quita plan of care. Disposition: 08/07/17 23:43 Hospitalization ordered by Mark Curran for Inpatient Admission. Preliminary diagnosis are Atrial fibrillation and flutter, Dyspnea, Bronchitis, not specified as acute or chronic, Chronic obstructive pulmonary disease with (acute) exacerbation. - Bed requested for Telemetry/MedSurg (Inpatient). - Status is Inpatient Admission. ao - Condition is Fair. - Problem is new. - Symptoms have improved. UTI on Admission? No Signatures: Dispatcher [employer] EDMS Lupe Gant RN RN Oli Corral MD MD cha Pena, Laura RN RN lp1 Jez Doshi PA PA jr8 Jurgen Gottlieb RN RN Francy Mario Corrections: (The following items were deleted from the chart) 21:40 20:42 Urine Dipstick-Ancillary ordered. 8 lp1 22:37 22:20 08/07/2017 22:20 Discharged to Home. Impression: Chronic obstructive pulmonary eb disease with (acute) exacerbation; Atrial fibrillation and flutter. Condition is Stable. Forms are Medication Reconciliation Form, Thank You Letter, Antibiotic Education, Prescription Opioid Use. Follow up: Private Physician; When: 1 - 2 days; Reason: Recheck today's complaints, Continuance of care, Re-evaluation by your physician. Problem is new. Symptoms have improved. [facility] 23:41 23:33 Lovenox 1 mg/kg Sub-Q once ordered. [facility] 23:41 22:37 08/07/2017 22:20 Discharged to Home. Impression: Chronic obstructive pulmonary quita disease with (acute) exacerbation; Atrial fibrillation and flutter. Condition is Stable. Discharge Instructions: Atrial Fibrillation, Chronic Obstructive Pulmonary Disease. Forms are Medication Reconciliation Form, Thank You Letter, Antibiotic Education, Prescription Opioid Use. Follow up: Private Physician; When: 1 - 2 days; Reason: Recheck today's complaints, Continuance of care, Re-evaluation by your physician. Problem is new. Symptoms have improved. 08/08 00:08/07 23:43 Hospitalization Ordered by Mark Curran MD for Inpatient Admission. Preliminary diagnosis is Atrial fibrillation and flutter; Dyspnea; Bronchitis, not specified as acute or chronic; Chronic obstructive pulmonary disease with (acute) exacerbation. Bed requested for Telemetry/MedSurg (Inpatient). Status is Inpatient Admission. Condition is Fair. Problem is new. Symptoms have improved. UTI on Admission? No. [facility] 08/08 02:04 00:06 08/07/2017 23:43 Hospitalization Ordered by Mark Curran MD for Inpatient ao Admission. Preliminary diagnosis is Atrial fibrillation and flutter; Dyspnea; Bronchitis, not specified as acute or chronic; Chronic obstructive pulmonary disease with (acute) exacerbation. Bed requested for Telemetry/MedSurg (Inpatient). Status is Inpatient Admission. Condition is Fair. Problem is new. Symptoms have improved. UTI on Admission? No. mw
--- NOTE | 2017-08-07 22:25 | RAD REPORT ---
EXAM DESCRIPTION: RAD - Chest Single View - 08/07/2017 9:21 pm CLINICAL HISTORY: Chest pain COMPARISON: July 22 TECHNIQUE: AP portable chest image was obtained 2108 hour . FINDINGS: Lung volumes are low. Chronic interstitial lung pattern is not substantially different fro m comparison. Early interstitial edema or infiltrate could easily be masked by the chronic pattern an d shallow inspiration. Heart size within normal limits for shallow inspiration portable exam. Trachea is midline. Sternotomy wires in place. No pneumothorax is present. No large pleural effusion. No zaira ss bony abnormality seen. No acute aortic findings suspected. IMPRESSION: Chronic interstitial lung disease similar to comparison. Lung markings are accentuated b y shallow inspiration. No significant change from prior imaging. Early failure or infiltrate can be masked in this setting.
[2017-08-08] MEDS ORDERED: FUROSEMIDE 20 MG/ 2ML VIAL ONE (00:33)
[2017-08-08] MEDS ORDERED: LEVALBUTEROL 1.25 MG/3 ML NEB ONE (00:34)
[2017-08-08] MEDS ORDERED: METOPROLOL TARTRATE 5 MG/5 ML INJ IV ONE (00:34)
[2017-08-08] MEDS ORDERED: METOPROLOL TAR 25 MG TAB ONE (00:34)
[2017-08-08] MEDS ORDERED: PANTOPRAZOLE 40 MG INJ ONE (00:34)
[2017-08-08] MEDS ORDERED: MAGNESIUM HYDROXIDE 8% 30 ML PO PRN (00:53)
[2017-08-08] MEDS ORDERED: ACETAMINOPHEN 500 MG TAB PO PRN (00:53)
[2017-08-08] MEDS ORDERED: FLUDROCORTISONE 0.1 MG TAB PO PRN (00:56)
[2017-08-08] MEDS ORDERED: METHYLPREDNISOLONE 40 MG INJ IV SCH (01:00)
[2017-08-08] MEDS: IPRATROPIUM BROM 0.5MG/2.5ML NEB SCH ×2 (02:10→07:47)
[2017-08-08] MEDS: ALBUTEROL 2.5 MG/3 ML NEB SOL NEB SCH ×2 (02:10→07:47)
[2017-08-08 02:26] VITALS: BMI 23.8
[2017-08-08 02:50] LABS: Urine Appearance TURBID; Urine Bilirubin NEGATIVE (NEG); Urine Blood 3+ (NEG); Urine Color YELLOW; Urine Glucose NEGATIVE (NEG); Urine Protein 1+ (NEG); Urine pH 7.5 (5.0-7.0)
[2017-08-08 03:25] LABS: Urine Microscopic Reflex ORDER UMIC
[2017-08-08 03:35] LABS: Urine Bacteria >50 /HPF (<20); Urine Culture Reflex Order REFLEXED; Urine RBC <5 /HPF (NONE SEEN)
[2017-08-08 06:02] LABS: Absolute Lymphocytes (CBC) 0.4 K/uL (0.7-4.9); Absolute Monocytes 0.1 K/uL (0.1-1.3); Hematocrit 33.4 % (36.0-45.0); Lymphocytes % 6.9 % (15.3-44.8); MCH 30.8 pg (27.0-35.0); MCV 95.1 fL (80-100); MPV 9.1 fL (7.6-11.3); Monocytes % 1.3 % (3.3-12.3); RBC Red Blood Cell Count 3.51 M/uL (3.86-4.86)
[2017-08-08 06:20] LABS: Albumin 2.9 g/dL (3.4-5.0); Bilirubin Total 0.5 mg/dL (0.2-1.0); Magnesium 2.1 mg/dL (1.8-2.4); Phosphorus 3.3 mg/dL (2.5-4.9); Potassium 3.6 mmol/L (3.5-5.1); Protein, Total 6.7 g/dL (6.4-8.2)
[2017-08-08] MEDS ORDERED: CEFTRIAXONE 1 GM/NS 50 ML 1 GM/50 ML BAG IV ONE (06:25)
--- NOTE | 2017-08-08 06:37 | EKG ---
Test Date: 2017-08-07 Test Time: 20:28:40 Gun Perforator Loader: ADRIA MEASUREMENT RESULTS: Intervals: Rate: 98 SD: QRSD: 88 QT: 244 QTc: 311 [place]: P: SD: QRS: 28 T: 226 INTERPRETIVE STATEMENTS: Atrial fibrillation Nonspecific ST and T wave abnormality Abnormal ECG Compared to ECG 07/22/2017 14:36:21 no significant change from previous ECG Electronically Signed On 08-08-17 06:37:00 CDT by Smith Fontanez
[2017-08-08] MEDS ORDERED: CEFTRIAXONE 1000 MG/VIAL ONE (06:45)
[2017-08-08] MEDS ORDERED: NA CHLORIDE 0.9% 50 ML ONE (06:45)
[2017-08-08] MEDS: PANTOPRAZOLE 40MG TABLET PO SCH (07:09)
[2017-08-08] MEDS: LEVOTHYROXINE SOD 0.1 MG TAB PO SCH (07:09)
[2017-08-08] MEDS: METHYLPREDNISOLONE 40 MG INJ IV SCH ×4 (07:09→23:10)
[2017-08-08] MEDS: TRAMADOL HCL 50 MG TAB PO PRN ×2 (07:24→20:32)
[2017-08-08] MEDS ORDERED: POTASSIUM CL SA 10 MEQ TAB PO ONE (07:25)
--- NOTE | 2017-08-08 07:31 | P.HP ---
Certification for Inpatient Patient admitted to: Inpatient With expected LOS: >2 Midnights Patient will require the following post-hospital care: None Practitioner: I am a practitioner with admitting privileges, knowledge of patient current condition, hospital course, and medical plan of care. Services: Services provided to patient in accordance with Admission requirements found in Title 42 Section 412.3 of the Code of Federal Regulations Patient History Date of Service: 08/08/17 Reason for admission: Shortness of breath History of Present Illness: Patient is an 82-year-old female who came to the hospital with shortness of breath. Patient has a history of COPD as was in atrial fibrillation. Her respiratory status has been worsening over the last couple of days. Patient came into the hospital for further evaluation. In the emergency room patient was given nebs and started on O2. Her clinical status has improved. Her heart rate has also been elevated but this is better controlled. Patient will be admitted to the hospital for further evaluation. Allergies No Known Allergies Allergy (Verified 08/08/17 03:11) Home Medications: Acetaminophen [Tylenol*] 2 tab PO Q6HP PRN 07/23/17 Alendronate Sodium [Fosamax] 70 mg PO EVERY 7TH DAY 07/23/17 Donepezil HCl [Aricept] 1 tab PO DAILY 07/23/17 Ferrous Sulfate [Ferrous Sulfate*] 325 mg PO BID 07/23/17 Fludrocortisone [Florinef *] 1 tab PO DAILY 07/23/17 Fluticasone/Vilanterol [Breo Ellipta 100-25 Mcg INH] 1 puff IH DAILY 07/23/17 Furosemide [Lasix] 40 mg PO BID 07/23/17 Gabapentin 600 mg PO TID 07/23/17 Hydrocodone 7.5/APAP 325 [[place] 7.5/325 mg] 1 tab PO BID 07/23/17 Hyoscyamine Sulfate [Levsin] 0.125 mg PO DAILY 07/23/17 LORazepam [Ativan*] 1 tab PO BEDTIME 07/23/17 Levothyroxine [Synthroid] 100 mcg PO [id number] 07/23/17 Loratadine [Claritin*] 1 tab PO DAILY 07/23/17 Melatonin 2 tab PO BEDTIME 07/23/17 Metoprolol Succinate [Toprol Xl] 25 mg PO BID 07/23/17 Ondansetron HCl [Zofran] 4 mg PO Q6HP PRN 07/23/17 Pantoprazole Sodium [Protonix] 40 mg PO [id number] 07/23/17 Polyvinyl Alcohol [Artificial Tears] 2 drop OP Q8HP PRN 07/23/17 Potassium Chloride [Micro-K] 10 meq PO DAILY 07/23/17 Primidone [Mysoline *] 50 mg PO BID 07/23/17 Sennosides [Senna] 2 cap PO DAILY 07/23/17 Tamsulosin [Flomax*] 0.4 mg PO DAILY 07/23/17 Tramadol HCl [Ultram] 100 mg PO Q6H PRN 07/23/17 Vitamin B Complex [B Complex] 1 tab PO DAILY 07/23/17 predniSONE [Deltasone] 10 mg PO DAILY 07/23/17 Calcium Carbonate [Tums Regular] 500 mg PO DAILY 08/08/17 Ciprofloxacin HCl [Cipro 250 MG Tablet*] 250 mg PO BID 08/08/17 Citalopram Hydrobromide [Citalopram HBr] 40 mg PO DAILY 08/08/17 Ipratropium/Albuterol Sulfate [Iprat-Albut 0.5-3(2.5) mg/3 ml] 3 ml IH Q6HP PRN 08/08/17 Polyethyl Gly 3350 [Glycolax] 17 gm PO DAILYPRN PRN 08/08/17 - Past Medical/Surgical History Has patient received pneumonia vaccine in the past: Yes Diabetic: No -: Atrial Fibrillation -: CAD -: copd -: Anemia -: Anuerysm Repair -: R hip sx - Family History Dad Notes: no significant hx as claimed Mom Notes: no significant hx as claimed - Social History Smoking Status: Former smoker Alcohol use: No CD- Drugs: No Caffeine use: No Place of Residence: Shelter Review of Systems 10-point ROS is otherwise unremarkable Physical Examination - Vital Signs Temperature: 96.6 F Blood Pressure: 126/86 Pulse: 113 Respirations: 22 Pulse Ox (%): 95 - Physical Exam General: Alert, In no apparent distress, Oriented x3 HEENT: Atraumatic, Normocephalic, PERRLA, Mucous membr. moist/pink Neck: Supple, 2+ carotid pulse no bruit, JVD not distended, No Thyromegaly Respiratory: Clear to auscultation bilaterally, Normal air movement Cardiovascular: Regular rate/rhythm, Normal S1 S2, No murmurs Gastrointestinal: Normal bowel sounds, Hypoactive, Soft and benign, Non- distended, No rebound, No guarding Musculoskeletal: No clubbing, No swelling, No contractures, No erythema Integumentary: No rashes Neurological: Normal gait, Normal speech, Normal strength at 5/5 x4 extr, Normal tone, Sensation intact, Cranial nerves 3-12 intact - Studies Laboratory Data (last 24 hrs) 08/07/17 21:30: PT 17.5 H, INR 1.48 08/07/17 21:30: WBC 5.9 D, Hgb 10.9 L, Hct 32.1 L, Plt Count 183 08/07/17 21:30: Sodium 135 L, Potassium 3.8, BUN 17, Creatinine 0.90, Glucose 103, Magnesium 2.2, Total Bilirubin 0.5, AST 23, ALT 30, Alkaline Phosphatase 92 Assessment & Plan - Problems (Diagnosis) (1) Dyspnea on exertion Current Visit: Yes Status: Acute (2) Atrial fibrillation with RVR Onset Date: 06/25/17 Current Visit: No Status: Acute (3) CHF (congestive heart failure) Onset Date: 06/25/17 Current Visit: No Status: Chronic Qualifiers: Heart failure type: combined systolic and diastolic Heart failure chronicity: chronic Qualified Code(s): I50.42 - Chronic combined systolic ( congestive) and diastolic (congestive) heart failure (4) COPD (chronic obstructive pulmonary disease) Onset Date: 06/25/17 Current Visit: No Status: Chronic Qualifiers: COPD type: unspecified COPD Qualified Code(s): J44.9 - Chronic obstructive pulmonary disease, unspecified (5) Dementia Onset Date: 06/25/17 Current Visit: No Status: Chronic Qualifiers: Dementia type: Alzheimer's disease Alzheimer's disease onset: other onset Dementia behavioral disturbance: without behavioral disturbance Qualified Code(s): G30.8 - Other Alzheimer's disease; F02.80 - Dementia in other diseases classified elsewhere without behavioral disturbance (6) Diabetes Onset Date: 06/25/17 Current Visit: No Status: Chronic Qualifiers: Diabetes mellitus type: type 2 Diabetes mellitus joint terminal attack controller insulin use: without joint terminal attack controller use Diabetes mellitus complication status: without complication Qualified Code(s): E11.9 - Type 2 diabetes mellitus without complications (7) GERD (gastroesophageal reflux disease) Onset Date: 06/25/17 Current Visit: No Status: Chronic Qualifiers: Esophagitis presence: with esophagitis Qualified Code(s): K21.0 - Gastro- esophageal reflux disease with esophagitis (8) Hyperlipidemia Onset Date: 06/25/17 Current Visit: No Status: Chronic Qualifiers: Hyperlipidemia type: unspecified Qualified Code(s): E78.5 - Hyperlipidemia , unspecified (9) Hyponatremia Onset Date: 06/25/17 Current Visit: No Status: Chronic (10) Hypothyroidism Onset Date: 06/25/17 Current Visit: No Status: Chronic Qualifiers: Hypothyroidism type: acquired Qualified Code(s): E03.9 - Hypothyroidism, unspecified - Plan Plan: 1. Continue with IV antibiotics 2. Awaiting sputum and blood culture 3. Repeat chest x-ray 4. Cardiology consultation 5. Continue with nebs as needed 6. Check UA, culture and sensitivity as well 7. O2 per protocol 8. Continue with gentle hydration 9. Repeat labs including CBC to monitor hemoglobin, and renal function in a.m. 10. GI and DVT prophylaxis Discharge Plan: Home Plan to discharge in: Greater than 2 days - Advance Directives Does patient have a Living Will: No Does patient have a Durable POA for Healthcare: No - Code Status/Comfort Care Code Status Assessed: Yes Code Status: Full Code Critical Care: No Time Spent Managing PTS Care (In Minutes): 50
[2017-08-08] MEDS ORDERED: ALBUTEROL 2.5 MG/3 ML NEB SOL NEB PRN (07:56)
[2017-08-08] MEDS: ARFORMOTEROL TARTRATE 15 MCG/2 ML VIAL.NEB NEB SCH ×2 (08:00→20:36)
--- NOTE | 2017-08-08 08:10 | P.PN ---
Subjective Date of Service: 08/08/17 Primary Care Provider: [facility] Chief Complaint: Shortness of breath Subjective: Other (Patient doing with better. She has less short of breath. Patient on Venti mask.) Physical Examination - Vital Signs Temperature: 96.6 F Blood Pressure: 126/86 Pulse: 113 Respirations: 22 Pulse Ox (%): 95 - Physical Exam General: Alert, In no apparent distress, Cooperative, Demented (Mild dementia) HEENT: Atraumatic Neck: Supple Respiratory: Expiratory wheezes (Bilateral) Cardiovascular: Irregular heart rate/rhythm (Atrial fibrillation rate above 100) Gastrointestinal: Normal bowel sounds, Soft and benign, Non-distended, No tenderness, No masses, No rebound, No guarding Musculoskeletal: No erythema, No tenderness, No warmth Integumentary: No tenderness/swelling, No erythema, No warmth, No cyanosis Neurological: Normal speech, Normal strength at 5/5 x4 extr, Normal tone, Dementia Urinary: Salgado catheter - Studies Laboratory Data (last 24 hrs) 08/07/17 21:30: PT 17.5 H, INR 1.48 08/07/17 21:30: WBC 5.9 D, Hgb 10.9 L, Hct 32.1 L, Plt Count 183 08/07/17 21:30: Sodium 135 L, Potassium 3.8, BUN 17, Creatinine 0.90, Glucose 103, Magnesium 2.2, Total Bilirubin 0.5, AST 23, ALT 30, Alkaline Phosphatase 92 Medications List Reviewed: Yes Assessment & Plan - Problems (Diagnosis) (1) Adrenal insufficiency Current Visit: Yes Status: Chronic Plan: Will continue with her medication-Florinef. Will monitor closely. (2) Chronic anticoagulation Current Visit: Yes Status: Chronic Plan: On her last admission, Eliquis was restarted. Will need to obtain and verify home medication. Will restart Eliquis at this time due to her history of atrial fibrillation. Cardiology consulted (3) Chronic use of steroids Current Visit: Yes Status: Chronic Plan: Patient to continue with steroids. Patient with COPD exacerbation and adrenal insufficiency. (4) Renal insufficiency Current Visit: Yes Status: Acute Plan: Mild renal insufficiency noted. Much improved since yesterday. Will monitor closely. (5) Anemia Onset Date: 07/23/17 Current Visit: No Status: Chronic Plan: Patient with mild anemia with iron def. Will restart iron and monitor. Qualifiers: Anemia type: iron deficiency Iron deficiency anemia type: chronic blood loss Qualified Code(s): D50.0 - Iron deficiency anemia secondary to blood loss (chronic) (6) Atrial fibrillation with RVR Onset Date: 06/25/17 Current Visit: No Status: Acute Plan: Will continue with her beta-aki therapy. Cardiology consulted for further recommendation. Will restart Eliquis. (7) UTI (urinary tract infection) Current Visit: No Status: Acute Plan: Patient with UTI. Currently on Rocephin. Await urine culture results. Qualifiers: Urinary tract infection type: acute cystitis Hematuria presence: without hematuria Qualified Code(s): N30.00 - Acute cystitis without hematuria (8) CHF (congestive heart failure) Onset Date: 06/25/17 Current Visit: No Status: Chronic Plan: Patient with history of systolic and diastolic dysfunction. Will continue with Lasix. Will monitor closely. Qualifiers: Heart failure type: combined systolic and diastolic Heart failure chronicity: chronic Qualified Code(s): I50.42 - Chronic combined systolic ( congestive) and diastolic (congestive) heart failure (9) COPD (chronic obstructive pulmonary disease) Onset Date: 06/25/17 Current Visit: No Status: Acute Plan: Patient with COPD exacerbation. Will continue with Brovana, IV steroids. Pulmonology consulted further recommendation. Patient with history of chronic steroid use and oxygen-dependent. Qualifiers: COPD type: unspecified COPD Qualified Code(s): J44.9 - Chronic obstructive pulmonary disease, unspecified (10) Dementia Onset Date: 06/25/17 Current Visit: No Status: Chronic Plan: Continue with her medication. Overall stable. Qualifiers: Dementia type: Alzheimer's disease Alzheimer's disease onset: other onset Dementia behavioral disturbance: without behavioral disturbance Qualified Code(s): G30.8 - Other Alzheimer's disease; F02.80 - Dementia in other diseases classified elsewhere without behavioral disturbance (11) GERD (gastroesophageal reflux disease) Onset Date: 06/25/17 Current Visit: No Status: Chronic Plan: Will continue with PPI. Patient with history of esophageal stenosis with recent dilation. Qualifiers: Esophagitis presence: with esophagitis Qualified Code(s): K21.0 - Gastro- esophageal reflux disease with esophagitis (12) Hypothyroidism Onset Date: 06/25/17 Current Visit: No Status: Chronic Plan: Continue with medication Qualifiers: Hypothyroidism type: acquired Qualified Code(s): E03.9 - Hypothyroidism, unspecified (13) Esophageal stricture Current Visit: No Status: Chronic Plan: History of esophageal stricture with dilation. Will continue with PPI. Discharge Plan: [facility] Plan to discharge in: 48 Hours Time Spent Managing Pts Care (In Minutes): 55
[2017-08-08 08:21] LABS: Blood Morphology Comment NOT SEEN (NOT SEEN); Platelet Estimate ADEQ
[2017-08-08] MEDS ORDERED: CITALOPRAM 10 MG TABLET PO SCH (09:00)
[2017-08-08] MEDS ORDERED: POLYVINYL ALCOHOL 1.4% 15 ML OPTH PRN (09:00)
[2017-08-08] MEDS ORDERED: ENOXAPARIN 40 MG/0.4 ML SQ SCH (09:00)
[2017-08-08] MEDS ORDERED: HOME MED 1 EA UNK (Fluticasone/Vilanterol [Breo Ellipta 100-25 Mcg Inh] 1 PUFF) IH SCH (09:00)
[2017-08-08] MEDS: DONEPEZIL HCL 5 MG TAB PO SCH ×2 (09:51→20:33)
[2017-08-08] MEDS: CITALOPRAM 10 MG TABLET PO SCH (09:52)
[2017-08-08] MEDS: APIXABAN 5 MG TABLET PO SCH ×2 (09:52→20:31)
[2017-08-08] MEDS: TAMSULOSIN 0.4 MG SR CAP PO SCH (09:53)
[2017-08-08] MEDS: FERROUS SULFATE 325 MG TAB PO SCH ×2 (09:53→20:31)
[2017-08-08] MEDS: FUROSEMIDE 40 MG TABLET PO SCH ×2 (09:53→20:33)
[2017-08-08] MEDS: PRIMIDONE 50 MG TAB PO SCH ×2 (09:54→20:32)
[2017-08-08] MEDS: HYOSCYAMINE SULF 0.125 MG TAB PO SCH (09:54)
[2017-08-08] MEDS: SENOSIDES 8.6 MG TAB PO SCH (09:55)
[2017-08-08] MEDS: CALCIUM CARBONATE CHEW 500MG TAB PO SCH (09:56)
[2017-08-08] MEDS: METOPROLOL XL 25 MG TAB PO SCH ×2 (09:56→20:34)
--- NOTE | 2017-08-08 13:08 | P.CNS ---
Date of Consult: 08/08/17 Reason for Consult: COPD Primary Care Provider: [facility] Chief Complaint: Shortness of breath History of Present Illness: Patient is 82 years of age admitted with palpitation was found to have AFib patient has COPD quit smoking 2 years ago does not use any prophylactic bronchodilators at home currently doing well on her AFib is controlled lives in a intermediate unable to ambulate is Breo on her chart are not sure if she is using that on a daily basis patient is still wheezing Allergies No Known Allergies Allergy (Verified 08/08/17 03:11) Home Medications: Acetaminophen [Tylenol*] 2 tab PO Q6HP PRN 07/23/17 Alendronate Sodium [Fosamax] 70 mg PO EVERY 7TH DAY 07/23/17 Donepezil HCl [Aricept] 1 tab PO DAILY 07/23/17 Ferrous Sulfate [Ferrous Sulfate*] 325 mg PO BID 07/23/17 Fludrocortisone [Florinef *] 1 tab PO DAILY 07/23/17 Fluticasone/Vilanterol [Breo Ellipta 100-25 Mcg INH] 1 puff IH DAILY 07/23/17 Furosemide [Lasix] 40 mg PO BID 07/23/17 Gabapentin 600 mg PO TID 07/23/17 Hydrocodone 7.5/APAP 325 [[place] 7.5/325 mg] 1 tab PO BID 07/23/17 Hyoscyamine Sulfate [Levsin] 0.125 mg PO DAILY 07/23/17 LORazepam [Ativan*] 1 tab PO BEDTIME 07/23/17 Levothyroxine [Synthroid] 100 mcg PO [id number] 07/23/17 Loratadine [Claritin*] 1 tab PO DAILY 07/23/17 Melatonin 2 tab PO BEDTIME 07/23/17 Metoprolol Succinate [Toprol Xl] 25 mg PO BID 07/23/17 Ondansetron HCl [Zofran] 4 mg PO Q6HP PRN 07/23/17 Pantoprazole Sodium [Protonix] 40 mg PO [id number] 07/23/17 Polyvinyl Alcohol [Artificial Tears] 2 drop OP Q8HP PRN 07/23/17 Potassium Chloride [Micro-K] 10 meq PO DAILY 07/23/17 Primidone [Mysoline *] 50 mg PO BID 07/23/17 Sennosides [Senna] 2 cap PO DAILY 07/23/17 Tamsulosin [Flomax*] 0.4 mg PO DAILY 07/23/17 Tramadol HCl [Ultram] 100 mg PO Q6H PRN 07/23/17 Vitamin B Complex [B Complex] 1 tab PO DAILY 07/23/17 predniSONE [Deltasone] 10 mg PO DAILY 07/23/17 Calcium Carbonate [Tums Regular] 500 mg PO DAILY 08/08/17 Ciprofloxacin HCl [Cipro 250 MG Tablet*] 250 mg PO BID 08/08/17 Citalopram Hydrobromide [Citalopram HBr] 40 mg PO DAILY 08/08/17 Ipratropium/Albuterol Sulfate [Iprat-Albut 0.5-3(2.5) mg/3 ml] 3 ml IH Q6HP PRN 08/08/17 Polyethyl Gly 3350 [Glycolax] 17 gm PO DAILYPRN PRN 08/08/17 - Past Medical/Surgical History Diabetic: No -: Atrial Fibrillation -: CAD -: copd -: Anemia -: Adrenal insufficiency -: Congestive heart failure diminished ejection fraction -: Anuerysm Repair -: R hip sx - Family History Dad Notes: no significant hx as claimed Mom Notes: no significant hx as claimed - Social History Smoking Status: Never smoker Alcohol use: No CD- Drugs: No Caffeine use: No Place of Residence: [facility] Review of Systems 10-point ROS is otherwise unremarkable General: Weakness Respiratory: Shortness of Breath Physical Examination Temp Pulse Resp BP Pulse Ox 96.6 F L 113 H 22 H 126/86 95 08/08/17 08:11 08/08/17 08:11 08/08/17 08:11 08/08/17 08:11 08/08/17 08:11 General: Alert, Oriented x3 HEENT: Atraumatic Neck: Supple Respiratory: Expiratory wheezes Cardiovascular: No edema, Regular rate/rhythm Gastrointestinal: Normal bowel sounds, Soft and benign Musculoskeletal: No clubbing, No swelling Integumentary: No rashes, No breakdown Neurological: Normal speech Laboratory Data (last 24 hrs) 08/07/17 21:30: PT 17.5 H, INR 1.48 08/07/17 21:30: WBC 5.9 D, Hgb 10.9 L, Hct 32.1 L, Plt Count 183 08/07/17 21:30: Sodium 135 L, Potassium 3.8, BUN 17, Creatinine 0.90, Glucose 103, Magnesium 2.2, Total Bilirubin 0.5, AST 23, ALT 30, Alkaline Phosphatase 92 - Problems (1) COPD (chronic obstructive pulmonary disease) Onset Date: 08/08/17 Current Visit: No Status: Acute Plan: Patient is 82 years of age admitted with palpitations she has AFib as active wheezing 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
[2017-08-08] MEDS: LISINOPRIL 5 MG TAB PO SCH (20:34)
[2017-08-08] MEDS: CEFTRIAXONE/SWI 1gm 1 GM/10 ML SYR IV SCH (20:37)
[2017-08-08] MEDS ORDERED: CEFTRIAXONE 1 GM/NS 50 ML 1 GM/50 ML BAG IV SCH (21:00)
[2017-08-08] MEDS ORDERED: LORAZEPAM 0.5 MG TABLET PO SCH (21:00)
[2017-08-08] MEDS: ALPRAZOLAM 0.25 MG TABLET PO PRN (22:32)
--- NOTE | 2017-08-09 02:25 | CON ---
Date of Consultation: 08/08/2017 Additional Admitting Physician: Corby Araiza DO. Reason For Consultation: COPD, atrial fibrillation, and congestive heart failure. History Of Present Illness: Ms. Dunlap is an 82-year-old white woman. She was just in the hospital recently. She has many medical problems including history of GI bleed recently which was secondary to elevated INR. She has a history of atrial fibrillation that is chronic and she has a history of a bdominal aortic aneurysm repair, coronary artery disease, seizure disorder, COPD, has a history of di abetes, dementia, depression, hypertension, cholesterol, and cerebrovascular disease. Comes in mostl y with shortness of breath. Atrial fibrillation is chronic. Cardiomegaly on chest x-ray with mild f ailure, elevated BNP of 6487. Negative troponin. Her AFib was at 113. Hemoglobin 10.8. Her glucos e is 157. Echocardiogram which was done last month shows an ejection fraction of 35% with chronic at rial fibrillation. Past Medical History: As stated above. Allergies: NONE. Review of Systems: Negative. Social History: Negative. Family History: Noncontributory. Medications: At home include Florinef, Lasix, Protonix, Levsin, Ativan, Flomax, Deltasone, Toprol, i nhalers, Aricept, Fosamax. Physical Examination: Vital Signs: Stable. She was in atrial fibrillation at a rate of about 100. HEENT: Negative. Neck: Supple with no bruit, lymphadenopathy, JVD, or thyromegaly. Chest: Revealed wheezing on expiration and bilateral rales. Cardiac: Revealed atrial fibrillation. Abdomen: Benign. Extremities: Revealed 1+ edema. Diagnostic Data: As stated earlier. Impression And Plan: 1.Chronic atrial fibrillation with rapid ventricular response. I would increase her Toprol dose. S he is not on any anticoagulants right now because of recent lower gastrointestinal bleed, but we shou ld probably consider Eliquis on her because she was not compliant with her Coumadin and diltiazem, an d came in with elevated INR and gastrointestinal bleed. She is not anemic now and we should reconsid er anticoagulation. 2.History of CAD that is stable. 3.History of abdominal aortic aneurysm repair. 4.History of seizure. 5.Chronic obstructive pulmonary disease exacerbation. 6.Diabetes. 7.Dementia. 8.Depression. 9.Hypertension, well controlled. 10.Dyslipidemia, well controlled. 11.Cerebrovascular disease that is stable. 12.Acute exacerbation of chronic congestive heart failure. I would increase her Lasix dose, use IV, and watch her I's and O's, creatinine and wait, and hopefull y, we will send her at home in a day or two. JALEN Voice ID: [id number] Report ID: [id number]
[2017-08-09 05:00] LABS: Absolute Lymphocytes (CBC) 0.6 K/uL (0.7-4.9); Absolute Monocytes 0.2 K/uL (0.1-1.3); Absolute Neutrophil 6.1 K/uL (1.8-8.0); Basophils % 0.1 % (0-1.3); Hematocrit 34.5 % (36.0-45.0); Lymphocytes % 8.2 % (15.3-44.8); MCH 30.8 pg (27.0-35.0); MCV 94.9 fL (80-100); MPV 9.6 fL (7.6-11.3); Monocytes % 3.1 % (3.3-12.3); RBC Red Blood Cell Count 3.64 M/uL (3.86-4.86)
[2017-08-09 05:23] LABS: Magnesium 2.1 mg/dL (1.8-2.4); Potassium 3.8 mmol/L (3.5-5.1)
[2017-08-09] MEDS ORDERED: POTASSIUM 25 MEQ EFFERV TAB PO ONE (05:30)
[2017-08-09] MEDS: METHYLPREDNISOLONE 40 MG INJ IV SCH ×3 (05:52→18:37)
[2017-08-09] MEDS: LEVOTHYROXINE SOD 0.1 MG TAB PO SCH (05:52)
[2017-08-09] MEDS: PANTOPRAZOLE 40MG TABLET PO SCH (05:52)
[2017-08-09] MEDS: TRAMADOL HCL 50 MG TAB PO PRN ×3 (05:52→18:36)
[2017-08-09] MEDS: ARFORMOTEROL TARTRATE 15 MCG/2 ML VIAL.NEB NEB SCH ×2 (08:17→19:54)
[2017-08-09] MEDS: FUROSEMIDE 40 MG TABLET PO SCH (09:00)
--- NOTE | 2017-08-09 10:03 | P.PN ---
Subjective Date of Service: 08/09/17 Primary Care Provider: [facility] Chief Complaint: Shortness of breath Subjective: Doing well (Patient appears better. Patient on nasal cannula.) Physical Examination - Vital Signs Temperature: 97.7 F Blood Pressure: 141/80 Pulse: 113 Respirations: 18 Pulse Ox (%): 92 - Physical Exam General: Alert, In no apparent distress, Cooperative HEENT: Atraumatic Neck: Supple Respiratory: Crackles/rales (Bilateral), Expiratory wheezes (Bilateral, slight improvement) Cardiovascular: Irregular heart rate/rhythm (Atrial fibrillation rate slightly elevated) Gastrointestinal: Normal bowel sounds, Soft and benign, Non-distended, No tenderness, No masses, No rebound, No guarding Musculoskeletal: No erythema, No tenderness, No warmth Integumentary: Other (Mild pitting edema noted to the lower extremities.) Neurological: Normal speech, Normal strength at 5/5 x4 extr, Normal tone, Normal affect - Studies Medications List Reviewed: Yes Assessment & Plan - Problems (Diagnosis) (1) Adrenal insufficiency Current Visit: Yes Status: Chronic Plan: Will continue with her medication-Florinef. Will monitor closely. (2) Chronic anticoagulation Current Visit: Yes Status: Chronic Plan: Will continue with Eliquis at this time. Patient with history of atrial fibrillation requiring chronic anti coagulation therapy. Will monitor hemoglobin closely. (3) Chronic use of steroids Current Visit: Yes Status: Chronic Plan: Patient to continue with steroids. Patient with COPD exacerbation and adrenal insufficiency. (4) Renal insufficiency Current Visit: Yes Status: Acute Plan: Mild renal insufficiency noted. Much improved since yesterday. Will monitor closely. (5) Anemia Onset Date: 07/23/17 Current Visit: No Status: Chronic Plan: Patient with mild anemia with iron def. Will continue with iron supplementation. Qualifiers: Anemia type: iron deficiency Iron deficiency anemia type: chronic blood loss Qualified Code(s): D50.0 - Iron deficiency anemia secondary to blood loss (chronic) (6) Atrial fibrillation with RVR Onset Date: 08/08/17 Current Visit: No Status: Acute Plan: Will increase beta-aki therapy. Agree with cardiology recommendation. Continue with Eliquis for chronic anti coagulation therapy. (7) UTI (urinary tract infection) Current Visit: No Status: Acute Plan: Patient with UTI. Continue with IV antibiotics. Urine culture positive for gram negative rods. Qualifiers: Urinary tract infection type: acute cystitis Hematuria presence: without hematuria Qualified Code(s): N30.00 - Acute cystitis without hematuria (8) CHF (congestive heart failure) Onset Date: 08/08/17 Current Visit: No Status: Chronic Plan: Patient with history of systolic and diastolic dysfunction. Will change Lasix to IV as per Cardiology. Qualifiers: Heart failure type: combined systolic and diastolic Heart failure chronicity: chronic Qualified Code(s): I50.42 - Chronic combined systolic ( congestive) and diastolic (congestive) heart failure (9) COPD (chronic obstructive pulmonary disease) Onset Date: 08/08/17 Current Visit: No Status: Acute Plan: Patient with COPD exacerbation. Will continue with Brovana, IV steroids. Will need Brovana/Atrovent nebs at discharge at long term. Qualifiers: COPD type: unspecified COPD Qualified Code(s): J44.9 - Chronic obstructive pulmonary disease, unspecified (10) Dementia Onset Date: 08/08/17 Current Visit: No Status: Chronic Plan: Continue with her medication. Overall stable. Qualifiers: Dementia type: Alzheimer's disease Alzheimer's disease onset: other onset Dementia behavioral disturbance: without behavioral disturbance Qualified Code(s): G30.8 - Other Alzheimer's disease; F02.80 - Dementia in other diseases classified elsewhere without behavioral disturbance (11) GERD (gastroesophageal reflux disease) Onset Date: 08/08/17 Current Visit: No Status: Chronic Plan: Will continue with PPI. Patient with history of esophageal stenosis with recent dilation. Qualifiers: Esophagitis presence: with esophagitis Qualified Code(s): K21.0 - Gastro- esophageal reflux disease with esophagitis (12) Hypothyroidism Onset Date: 08/08/17 Current Visit: No Status: Chronic Plan: Continue with medication Qualifiers: Hypothyroidism type: acquired Qualified Code(s): E03.9 - Hypothyroidism, unspecified (13) Esophageal stricture Current Visit: No Status: Chronic Plan: History of esophageal stricture with dilation. Will continue with PPI. Discharge Plan: [facility] Plan to discharge in: 24 Hours Time Spent Managing Pts Care (In Minutes): 55
--- NOTE | 2017-08-09 10:05 | RAD REPORT ---
EXAM DESCRIPTION: Rosa Single View08/09/2017 6:33 am CLINICAL HISTORY: Chest pain COMPARISON: August 07, 2017 FINDINGS: Postsurgical changes involve the chest The heart is mildly to moderately enlarged. The aorta is tortuous/ectatic. Mild interstitial lung opacities are without significant change. A small left pleural effusion is pre sent
[2017-08-09] MEDS: METOPROLOL XL 50 MG TAB PO SCH ×2 (10:18→20:56)
[2017-08-09] MEDS: HYOSCYAMINE SULF 0.125 MG TAB PO SCH (10:18)
[2017-08-09] MEDS: APIXABAN 5 MG TABLET PO SCH ×2 (10:18→20:55)
[2017-08-09] MEDS: TAMSULOSIN 0.4 MG SR CAP PO SCH (10:18)
[2017-08-09] MEDS: DONEPEZIL HCL 5 MG TAB PO SCH ×2 (10:18→20:54)
[2017-08-09] MEDS: SENOSIDES 8.6 MG TAB PO SCH (10:18)
[2017-08-09] MEDS: FERROUS SULFATE 325 MG TAB PO SCH ×2 (10:18→20:54)
[2017-08-09] MEDS: CITALOPRAM 10 MG TABLET PO SCH (10:18)
[2017-08-09] MEDS: PRIMIDONE 50 MG TAB PO SCH ×2 (10:19→20:54)
[2017-08-09] MEDS: CALCIUM CARBONATE CHEW 500MG TAB PO SCH (10:19)
[2017-08-09] MEDS: CEFTRIAXONE/SWI 1gm 1 GM/10 ML SYR IV SCH ×2 (10:19→20:54)
[2017-08-09] MEDS: FUROSEMIDE 20 MG/ 2ML VIAL IV SCH (18:36)
[2017-08-09] MEDS: LISINOPRIL 5 MG TAB PO SCH (20:55)
[2017-08-10] MEDS: ALPRAZOLAM 0.25 MG TABLET PO PRN
[2017-08-10] MEDS: METHYLPREDNISOLONE 40 MG INJ IV SCH ×4 (00:15→17:30)
[2017-08-10] MEDS: IPRATROPIUM BROM 0.5MG/2.5ML NEB PRN ×2 (00:44→07:46)
[2017-08-10] MEDS: TRAMADOL HCL 50 MG TAB PO PRN ×3 (02:31→16:17)
[2017-08-10] MEDS: ONDANSETRON 4 MG/2 ML VIAL IV PRN ×2 (03:52→09:48)
[2017-08-10 05:15] LABS: Magnesium 2.6 mg/dL (1.8-2.4); Potassium 4.3 mmol/L (3.5-5.1)
[2017-08-10] MEDS: LEVOTHYROXINE SOD 0.1 MG TAB PO SCH (05:20)
[2017-08-10] MEDS: METOPROLOL XL 50 MG TAB PO SCH ×2 (05:20→17:31)
[2017-08-10] MEDS: PANTOPRAZOLE 40MG TABLET PO SCH (05:20)
[2017-08-10 05:21] LABS: Absolute Lymphocytes (CBC) 0.7 K/uL (0.7-4.9); Absolute Monocytes 0.3 K/uL (0.1-1.3); Absolute Neutrophil 9.1 K/uL (1.8-8.0); Basophils % 0.2 % (0-1.3); Hematocrit 36.4 % (36.0-45.0); Lymphocytes % 6.6 % (15.3-44.8); MCH 30.8 pg (27.0-35.0); MCV 95.4 fL (80-100); MPV 10.5 fL (7.6-11.3); Monocytes % 3.3 % (3.3-12.3); RBC Red Blood Cell Count 3.81 M/uL (3.86-4.86)
[2017-08-10] MEDS: METOPROLOL XL 25 MG TAB PO SCH ×2 (05:21→17:31)
[2017-08-10] MEDS ORDERED: METOPROLOL XL 100 MG TAB PO SCH (06:00)
[2017-08-10] MEDS: ARFORMOTEROL TARTRATE 15 MCG/2 ML VIAL.NEB NEB SCH ×2 (07:45→19:36)
[2017-08-10] MEDS: FERROUS SULFATE 325 MG TAB PO SCH ×2 (10:48→20:32)
[2017-08-10] MEDS: CITALOPRAM 10 MG TABLET PO SCH (10:48)
[2017-08-10] MEDS: PRIMIDONE 50 MG TAB PO SCH ×2 (10:48→20:34)
[2017-08-10] MEDS: HYOSCYAMINE SULF 0.125 MG TAB PO SCH (10:48)
[2017-08-10] MEDS: CALCIUM CARBONATE CHEW 500MG TAB PO SCH (10:49)
[2017-08-10] MEDS: FUROSEMIDE 20 MG/ 2ML VIAL IV SCH ×2 (10:49→17:31)
[2017-08-10] MEDS: TAMSULOSIN 0.4 MG SR CAP PO SCH (10:49)
[2017-08-10] MEDS: SENOSIDES 8.6 MG TAB PO SCH (10:49)
[2017-08-10] MEDS: DONEPEZIL HCL 5 MG TAB PO SCH ×2 (10:49→20:34)
[2017-08-10] MEDS: APIXABAN 5 MG TABLET PO SCH ×2 (10:49→20:34)
[2017-08-10] MEDS: CEFTRIAXONE/SWI 1gm 1 GM/10 ML SYR IV SCH ×2 (10:50→20:34)
--- NOTE | 2017-08-10 11:17 | RAD REPORT ---
EXAM DESCRIPTION: RAD - Chest Single View - 08/10/2017 6:11 am CLINICAL HISTORY: wheezing Chest pain. COMPARISON: Chest Single View dated 08/09/2017; Chest Single View dated 08/07/2017; Chest Single View dated 07/22/2017; Chest Single View dated 07/10/2017; Thorax Wo Con dated 06/29/2017 FINDINGS: Portable technique limits examination quality. Mild interstitial pulmonary edema suspected. The heart is mildly enlarged in size with a tortuous tho racic aorta. Trace left pleural fluid. No displaced fractures.Sternotomy wires present. IMPRESSION: Mild CHF/ volume overload pattern.
--- NOTE | 2017-08-10 12:54 | PN ---
Date of Progress Note: 08/09/2017 Mrs. Dunlap had come in with atrial fibrillation and congestive heart failure. Today, she is still in atrial fibrillation at a rate of about 90, asymptomatic. We will continue beta-aki. Not a gr eat candidate for anticoagulation. She can go home whenever it is okay with Dr. Araiza. SHAILA/BOBBY Voice ID: [id number] Report ID: [id number]
--- NOTE | 2017-08-10 17:21 | DS ---
Date of Discharge: 08/10/2017 Discharge Diagnoses: 1. Congestive heart failure exacerbation. 2. Chronic obstructive pulmonary disease. 3. Hypertension. 4. Hypothyroidism. 5. Atrial fibrillation with rapid ventricular response, resolved. 6. Esophageal stricture. 7. Acid reflux. 8. Iron deficiency. 9. Urinary tract infection. Consult: Consult Cardiology, consult Pulmonary. Chest x-ray with signs of volume overload, with marked CHF. Please refer to Dr. Curran's admission note. Hospital Course: Initially, the patient presented with progressive shortness of breath that was getting worse over the few days before admission. She found to be with atrial fibrillation with RVR. Cardiology consult requested, and Dr. Mattson increased her Toprol-XL from 25-75 twice a day. He also advised to continue anticoagulation with Eliquis 5 mg twice a day. The patient was placed on dialysis with IV Lasix and her shortness of breath improved. She will be switched to oral Lasix 40 twice a day at this point before discharge. She was also found to have UTI. She was placed on ceftriaxone. She will be discharged home on Cipro. She was maintained on a high dose of Solu-Medrol, which will be switched to prednisone 10 mg daily. [facility] condition. Discharge Condition: Stable. Discharged Diet: Cardiac. Discharge Followup: Followup with primary care physician in 1 week with labs. Physical Examination: Vital Signs: At discharge, blood pressure 130/88, respiratory rate 18, pulse 111, temperature 98.3. General: The patient is alert and oriented x3. Does not look in any distress. HEENT: Atraumatic, normocephalic. PERRLA mucosa is moist. Neck: Supple. No JVP. No carotid bruits. CHEST: Clear, but continuing with fine crackles in the bases. There is no wheezing. Heart: Irregular rate and rhythm. No gallop or murmur. Abdomen: Soft, nontender. No masses. Positive bowel sounds. Extremities: No clubbing or cyanosis. Discharge Condition: Fair. Discharge Diet: Cardiac. Discharge Activity: As tolerated. The patient is mostly bed ridden. Discharge Medication: Eliquis 5 mg twice a day, Brovana 15 mcg inhaler twice a day, Toprol-XL 75 mg twice a day, given in 2 different strengths, Fosamax 70 mg weekly, Cipro 250 mg for 10 days, Lasix 40 mg twice a day, Neurontin 600 mg t.i.d., hydrocodone 1 tablet twice a day, Combivent inhaler every 6 hours as needed, Claritin 10 mg once a day, Ativan 0.5 mg at bedtime as before, melatonin 3 mg at bedtime 2 tablets, MiraLAX 17 g daily as needed, Zofran 4 mg as needed for nausea, potassium chloride 10 mEq orally once a day. Prednisone 10 mg orally daily, vitamin B 1 tablet orally daily. florinef 0.1 mg daily , levsin 0.125 mg daily , flomax 0.4 mg daily EVETTE/BOBBY Voice ID: [id number] Report ID: [id number] MTDD
[2017-08-10] MEDS: LISINOPRIL 5 MG TAB PO SCH (20:32)
[2017-08-10 20:35] VITALS: BP 137/86
[2017-08-10 20:37] VITALS: TEMP 97.1
[2017-08-11] VITALS: O2SAT 97
== END 2017-08-10 22:07 | DRG 292 ==
LOC: ER 20:14 → ERHOLD 23:44 → 2ND 08-08 01:48
PROVIDERS: ADMIT Hospitalist; ATTEND Internal Medicine
DX: I11.0 Hypertensive heart disease with heart failure (principal); E27.40 Unspecified adrenocortical insufficiency; N30.00 Acute cystitis without hematuria; E87.1 Hypo-osmolality and hyponatremia; I50.43 Acute on chronic combined systolic (congestive) and diastolic (congestive) heart failure; J44.9 Chronic obstructive pulmonary disease, unspecified; E03.9 Hypothyroidism, unspecified; I48.2 Chronic atrial fibrillation; K22.2 Esophageal obstruction; K21.9 Gastro-esophageal reflux disease without esophagitis; Z79.52 Long term (current) use of systemic steroids; D50.9 Iron deficiency anemia, unspecified; N28.9 Disorder of kidney and ureter, unspecified; G30.9 Alzheimer's disease, unspecified; F02.80 Dementia in other diseases classified elsewhere, unspecified severity, without behavioral disturbance, psychotic disturbance, mood disturbance, and anxiety; E78.5 Hyperlipidemia, unspecified; Z87.891 Personal history of nicotine dependence; I25.10 Atherosclerotic heart disease of native coronary artery without angina pectoris; B96.89 Other specified bacterial agents as the cause of diseases classified elsewhere
CPT/HCPCS: 36415; 51702; 71045; 80048; 80053; 80076; 81003; 81015; 83735; 83880; 84100; 84443; 84484; 85025; 85610; 87040; 87077; 87086; 87088; 87186; 93005; 94640; 99285; C9113; J0696; J1940; J2405; J2920; J2930; J7605